=== PATIENT | female | born 1940 | race Caucasian/White ===

== ENCOUNTER → 2017-02-03 | Outpatient (CLI) | payer MEDICARE, MEDICAID ==
[~2017-02-03] MED LIST: BACL10TA PO; CYMB60CA PO; DOCU100C PO; DULC5TAB PO; FAMO20TA2 PO; HYDR-3583 PO; LEVO150T7 PO; LISI2.5T3 PO; LYRI150C PO; POLY17S PO; PRAV40TA2 PO; SENN8.8L PO; SIME180C2 PO; TOPA25TA8 PO; TYLE325T PO; VITA1000 PO; ZOLP10TA3 PO; [UNRECOGNIZED DRUG - CODE] PO
--- NOTE | 2017-02-03 13:46 | RADRPT ---
EXAM DATE/TIME: 02/03/2017 13:00 [facility] COMPARISON: CT ABDOMEN & PELVIS W/O CONTRAST, April 14, 2016, 22:29. INDICATIONS : Left flank pain with history of kidney stones. ORAL CONTRAST: No oral contrast ingested. RADIATION DOSE: 13.88 CTDIvol (mGy) MEDICAL HISTORY : Renal calculi. SURGICAL HISTORY : Hysterectomy. ENCOUNTER: Initial ACUITY: 2 months PAIN SCALE: 4/10 LOCATION: Left flank TECHNIQUE: Volumetric scanning of the abdomen and pelvis was performed. Using automated exposure control and ad justment of the mA and/or kV according to patient size, radiation dose was kept as low as reasonably achievable to obtain optimal diagnostic quality images. FINDINGS: LOWER LUNGS: Minimal right basal atelectasis versus scarring. LIVER: Homogeneous density without lesion. There is no dilation of the biliary tree. Gallbladder is surgica lly absent. SPLEEN: Normal size without lesion. PANCREAS: Within normal limits. KIDNEYS: Staghorn type calcified calculi in the left kidney extending to the renal pelvis similar to previous examination. Overall appearance of the left kidney is unchanged without evidence for interval hydrone phrosis or perinephric inflammatory change Nearly Staghorn type calcified calculi in the inferior to mid right renal poles and extending to the renal pelvis. The right kidney is otherwise unremarkable without significant perinephric strandi ng or hydronephrosis. Evaluation of the distal ureters and UV junction is very limited due to significant streak artif act from patient's bilateral hip arthroplasties. There is a 5 mm calcified density seen in the association executive ior left pelvis which was not demonstrated on the prior CT exam. This is potentially in the course of the left ureter although exact location is difficult to ascertain. The mid to proximal ureters are n ormal in caliber without evidence for radiopaque renal calculi. ADRENAL GLANDS: Within normal limits. VASCULAR: There is no aortic aneurysm. BOWEL/MESENTERY: The stomach, small bowel, and colon demonstrate no acute abnormality. Moderate amount of stool is not ed throughout the colon. There is no free intraperitoneal air or fluid. ABDOMINAL WALL: Within normal limits. RETROPERITONEUM: There is no lymphadenopathy. BLADDER: The bladder is decompressed and not visualized due to 2 significant beam hardening artifact from bila teral hip arthroplasties. REPRODUCTIVE: Calcified mass in the right pelvis is likely associated with the uterus and reflects uterine leiomyom a. INGUINAL: Cannot be evaluated. 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 Pronounced degenerative changes of the lumbar spine. CONCLUSION: 1. Staghorn type left renal calculi without evidence for left-sided hydronephrosis. The distal ureter s and UVJ are not evaluated due to significant beam artifact from bilateral hip arthroplasties. There is a new 5 mm calcified density seen in the region of the left distal ureter but exact location is d ifficult to ascertain. Although this may reflect a distal ureteral calculus, there is no evidence for significant obstructive uropathy at this time. 2. Nearly Staghorn type calcified calculi in the inferior to mid right renal poles without evidence f or significant hydronephrosis. 3. Remainder of the exam is unchanged with stable ancillary findings, as above. Apollo Montague MD on February 03, 2017 at 13:17 Board Certified Radiologist. This report was verified electronically.
== END ==
LOC: HRAD 12:17
PROVIDERS: ATTEND Urology
DX: R20.0 Anesthesia of skin (principal)
CPT/HCPCS: 74176

== ENCOUNTER 2017-07-20 12:51 | Inpatient (IN) | payer MEDICARE, MEDICAID ==
[~2017-07-20] VITALS: Ht 170.2 cm; Wt 124.0 kg
[2017-07-20] VITALS (7 sets, daily range): BP systolic 114–144; BP diastolic 57–68; PULSE 64–86; RESP 15–20; TEMP 97.5–99; O2SAT 94–97
[~2017-07-20 12:51] MED LIST changes: +ALEV220T14 PO; -DOCU100C PO; +DOCU100C15 PO; +MACR100C2 PO; +SENN8.6T36 PO; -SENN8.8L PO; -TOPA25TA8 PO; +TOPI1CAP18 PO; +[UNRECOGNIZED DRUG - CODE] PO; -[UNRECOGNIZED DRUG - CODE] PO
[2017-07-20 14:01] LABS: HEMATOCRIT 40.6 % (35.0-46.0); MEAN CELL VOLUME 93.9 FL (80.0-100.0); MEAN CORPUSCULAR HEMOGLOBIN 30.6 PG (27.0-34.0); MEAN CORPUSCULAR HGB CONC 32.6 % (32.0-36.0); PLATELET COUNT 146 TH/MM3 (150-450); RED BLOOD COUNT 4.32 MIL/MM3 (4.00-5.30); RED CELL DISTRIBUTION WIDTH 15.7 % (11.6-17.2); WHITE BLOOD COUNT 22.9 TH/MM3 (4.0-11.0)
[2017-07-20 14:03] LABS: HEMO FLAGS AUTO DIFF
[2017-07-20 14:09] LABS: APTT (PATIENT) 27.5 SEC (24.3-30.1); INTERNATIONAL NORMALIZED RATIO 1.1 RATIO; PROTHROMBIN TIME - PATIENT 10.8 SEC (9.8-11.6)
[2017-07-20 14:21] LABS: ANION GAP 6 MEQ/L (5-15); AST (GOT) 21 U/L (15-37); BICARBONATE 25.6 MEQ/L (21.0-32.0); CHLORIDE 110 MEQ/L (98-107); GLOMERULAR FILTRATION RATE 26 ML/MIN (>89); POTASSIUM 4.6 MEQ/L (3.5-5.1); SODIUM (NA) 142 MEQ/L (136-145)
[2017-07-20 14:22] LABS: ALKALINE PHOSPHATASE 81 U/L (45-117); ALT (GPT) 15 U/L (10-53); TOTAL BILIRUBIN ADULT 0.8 MG/DL (0.2-1.0)
[2017-07-20 14:28] LABS: BANDS 15 % (0-6); NEUTROPHIL # MANUAL DIFF 18.3 TH/MM3 (1.8-7.7); POLYS (SEG NEUTROPHILS) 65 % (16-70); WBC DIFF SAMPLE 100
[2017-07-20 14:29] LABS: PLATELET ESTIMATE SMEAR NORMAL (NORMAL); PLATELET MORPHOLOGY NORMAL (NORMAL); SCAN/DIFF FINAL DIFF MANUAL
[2017-07-20 14:31] LABS: BLOOD UREA NITROGEN 29 MG/DL (7-18)
[2017-07-20] MEDS ORDERED: SODIUM CHLORIDE 0.9% FLUSH 10 ML FLUSH IV FLUSH PRN ×2 (14:45→20:00)
[2017-07-20] MEDS ORDERED: NALOXONE HCL 2 MG/2 ML VIAL IV PUSH ONE (14:45)
[2017-07-20 15:03] LABS: BLOOD GAS BASE EXCESS 1.1 mmol/L (-2-2); BLOOD GAS CARBOXYHEMOGLOBIN 1.8 % (0-4); BLOOD GAS HCO3 26 mmol/L (22-26); BLOOD GAS METHEMOGLOBIN 0.7 % (0-2); BLOOD GAS O2 HGB SATURATION 92 % (90-100); BLOOD GAS OXYGEN CONTENT 16.7 Vol % (12.0-20.0); BLOOD GAS PCO2 44 mmHg (38-42); BLOOD GAS PO2 71 mmHG (61-120); BLOOD GAS TOTAL HGB 12.9 G/DL (12.0-16.0)
[2017-07-20 15:04] LABS: CRITICAL VALUE NO; DRAW SITE RT RADIAL; FIO2 21 %; NUMBER OF ARTERIAL PUNCTURES 1; OXYGEN DEVICE ROOM AIR; STAT YES; ULNAR PULSE PRESENT
--- NOTE | 2017-07-20 15:22 | PD ---
HPI Chief Complaint: General Weakness Time Seen by Provider: 14:23 Travel History International Travel<30 days: No Contact w/Intl Traveler<30days: No Traveled to known affect area: No History of Present Illness HPI This 77-year-old woman who presents to the emergency department complaining of altered mental status. I spoke with the nurse at [facility] gives majority of the history. She reports that patient is normally a and O 3 but does have episodes of confusion. She states today patient was overtly confused, decreased responsiveness, slurred speech, with a low BP. She is a history of tubal episodes of sepsis. She was started on Macrobid prophylactic antibiotics several days ago because she has kidney stones. She also apparently has a brain tumor. She is on Ambien which she takes nightly, Lescol at 9 PM last night, as well as Norcal which she takes regularly, last got 5 AM. No recent change in her medications otherwise. History Past Medical History Narrative Medical "Brain tumor" Hypertension CHF Polyneuropathy CAD Chronic kidney disease GERD Osteoporosis Chronic pain Tetanus Vaccination: Unknown Influenza Vaccination: Yes Social History Alcohol Use: No Tobacco Use: No Allergies-Medications (Allergen,Severity, Reaction): Coded Allergies: Sulfa (Sulfonamide Antibiotics) (Unverified Allergy, Severe, 07/15/17) codeine (Unverified Allergy, Severe, 07/15/17) morphine (Unverified Allergy, Severe, 07/15/17) amoxicillin (Unverified Allergy, Unknown, UNKNOWN, 07/15/17) *MDRO Multi-Drug Resistant Organism (Verified Adverse Reaction, Unknown, 07/15/17) MRSA 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 (nares) POSITIVE - 04/13/16 ESBL+E.Coli-(urine & blood-04/13/16) & (urine-06/16/16);MDR-Pseudomonas (urine-06/16/16) Reported Meds & Prescriptions Reported Meds & Active Scripts Active Macrobid (Nitrofurantoin Monoh/Nitrofur Macro) 100 Mg Cap 100 Mg PO HS Reported Bisacodyl Supp (Bisacodyl) 10 Mg Supp 10 Mg RECTAL EVERY [address] (Bisacodyl) 5 Mg Tabdr 10 Mg PO DAILY PRN Florastor (Saccharomyces Boulardii) 250 Mg Cap 250 Mg PO BID Lyrica (Pregabalin) 150 Mg Cap 300 Mg PO DAILY@1400 Trimethoprim 100 Mg Tab 100 Mg PO DAILY Aleve Arthritis (Naproxen Sodium) 220 Mg Tab 220 Mg PO BID PRN Senna-Tabs (Sennosides) 8.6 Mg Tab 17.2 Mg PO BID Topiramate ER (Topiramate) 50 Mg Cap 50 Mg PO BID Famotidine 20 Mg Tab 20 Mg PO BID Tylenol (Acetaminophen) 325 Mg Tab 325 Mg PO Q4H PRN Pravastatin 40 Mg Tab 40 Mg PO HS Hydrocodone-Acetaminophen 10-325 mg Tab 1 Tab PO Q8HR PRN Lyrica (Pregabalin) 150 Mg Cap 150 Mg PO BID Vitamin D-1000 (Cholecalciferol) 1,000 Unit Tab 1,000 Units PO DAILY Cymbalta DR (Duloxetine HCl) 60 Mg Capdr 60 Mg PO DAILY Docusate Sodium 100 Mg Cap 100 Mg PO BID Polyethylene Glycol 3350 Powder (Polyethylene Glycol) 17 Gm Pow 17 Gm PO DAILY Levothyroxine (Levothyroxine Sodium) 150 Mcg Tab 150 Mcg PO DAILY Baclofen 10 Mg Tab 10 Mg PO BID Zolpidem (Zolpidem Tartrate) 10 Mg Tab 10 Mg PO HS PRN Review of Systems Except as stated in HPI: all other systems reviewed are Neg Physical Exam Narrative GENERAL: 77 year-old woman, sluggishly responsive, responds only minimally to stimuli, SKIN: Focused skin assessment warm/dry. HEAD: Atraumatic. Normocephalic. EYES: Pupils equal and round. No scleral icterus. No injection or drainage. ENT: No nasal bleeding or discharge. Mucous membranes pink and moist. NECK: Trachea midline. No JVD. CARDIOVASCULAR: Regular rate and rhythm. No murmur appreciated. RESPIRATORY: No accessory muscle use. Clear to auscultation. Breath sounds equal bilaterally. GASTROINTESTINAL: Obese and soft. No tenderness or grimace with deep palpation. MUSCULOSKELETAL: No obvious deformities. Obese legs no obvious edema. No grimace with range of motion of all 4 extremities. NEUROLOGICAL: Decreased alertness. We'll wake up at times it was speaking with the nurse apparently prior to my arrival. Only moans and answer short questions , falls asleep easily, or cars a lot of stimulus to rouse. PSYCHIATRIC: Appropriate mood and affect; insight and judgment normal. Data Data Last Documented VS Vital Signs Date Time Temp Pulse Resp B/P (MAP) Pulse Ox O2 Delivery O2 Flow Rate FiO2 07/20/17 19:05 70 15 97 Room Air 07/20/17 19:05 125/57 (79) 07/20/17 13:11 97.5 Orders Orders Electrocardiogram (07/20/17 13:17) Complete Blood Count With Diff (07/20/17 13:17) Comprehensive Metabolic Panel (07/20/17 13:17) Prothrombin Time / Inr (Pt) (07/20/17 13:17) Act Partial Throm Time (Ptt) (07/20/17 13:17) Blood Glucose (07/20/17 13:17) Ecg Monitoring (07/20/17 13:17) Iv Access Insert/Monitor (07/20/17 13:17) Oximetry (07/20/17 13:17) Troponin I (07/20/17 14:43) Thyroid Stimulating Hormone (07/20/17 14:43) Urinalysis - C+S If Indicated (07/20/17 14:43) Cath For Specimen (07/20/17 14:43) Naloxone Inj (Narcan Inj) (07/20/17 14:45) Sodium Chloride 0.9% Flush (Ns Flush) (07/20/17 14:45) Electrocardiogram (07/20/17 ) Chest, Single Ap (07/20/17 ) Arterial Blood Gas (Abg) (07/20/17 ) Ct Brain W/O Iv Contrast(Rout) (07/20/17 ) Blood Culture (07/20/17 15:22) Lactic Acid (07/20/17 15:22) Urine Culture (07/20/17 14:55) Gentamicin Inj (Gentamicin Inj) (07/20/17 19:28) [facility] [facility] [place] (07/20/17 19:30) Ertapenem Inj (Invanz Inj) (07/20/17 19:30) Consult Infectious Disease (07/20/17 ) Sodium Chlor 0.9% 1000 Ml Inj (Ns 1000 M (07/20/17 19:45) Sodium Chlor 0.9% 1000 Ml Inj (Ns 1000 M (07/20/17 19:45) Admit Order (Ed Use Only) (07/20/17 ) Labs Laboratory Tests Test 07/20/17 13:40 07/20/17 14:55 07/20/17 14:56 07/20/17 16:20 White Blood Count 22.9 TH/MM3 Red Blood Count 4.32 MIL/MM3 Hemoglobin 13.2 GM/DL Hematocrit 40.6 % Mean Corpuscular Volume 93.9 FL Mean Corpuscular Hemoglobin 30.6 PG Mean Corpuscular Hemoglobin Concent 32.6 % Red Cell Distribution Width 15.7 % Platelet Count 146 TH/MM3 Mean Platelet Volume 10.8 FL CBC Comment AUTO DIFF Differential Total Cells Counted 100 Neutrophils % (Manual) 65 % Band Neutrophils % 15 % Lymphocytes % 11 % Monocytes % 9 % Neutrophils # (Manual) 18.3 TH/MM3 Differential Comment FINAL DIFF MANUAL Platelet Estimate NORMAL Platelet Morphology Comment NORMAL Prothrombin Time 10.8 SEC Prothromb Time International Ratio 1.1 RATIO Activated Partial Thromboplast Time 27.5 SEC Blood Urea Nitrogen 29 MG/DL Creatinine 1.89 MG/DL Random Glucose 118 MG/DL Total Protein 6.7 GM/DL Albumin 2.7 GM/DL Calcium Level 8.9 MG/DL Alkaline Phosphatase 81 U/L Aspartate Amino Transf (AST/SGOT) 21 U/L Alanine Aminotransferase (ALT/SGPT) 15 U/L Total Bilirubin 0.8 MG/DL Sodium Level 142 MEQ/L Potassium Level 4.6 MEQ/L Chloride Level 110 MEQ/L Carbon Dioxide Level 25.6 MEQ/L Anion Gap 6 MEQ/L Estimat Glomerular Filtration Rate 26 ML/MIN Urine Color YELLOW Urine Turbidity CLOUDY Urine pH 7.0 Urine Specific [place] 1.017 Urine Protein 100 mg/dL Urine Glucose (UA) NEG mg/dL Urine Ketones NEG mg/dL Urine Occult Blood MOD Urine Nitrite NEG Urine Bilirubin NEG Urine Urobilinogen LESS THAN 2.0 MG/DL Urine Leukocyte Esterase LARGE Urine RBC 82 /hpf Urine WBC /hpf Urine WBC Clumps MANY Urine Squamous Epithelial Cells 8 /hpf Urine Bacteria OCC /hpf Microscopic Urinalysis Comment CATH-CULTURE IND Blood Gas Puncture Site RT RADIAL Blood Gas Patient Temperature 37.0 Blood Gas HCO3 26 mmol/L Blood Gas Base Excess 1.1 mmol/L Blood Gas Oxygen Saturation 92 % Arterial Blood pH 7.39 Arterial Blood Partial Pressure CO2 44 mmHg Arterial Blood Partial Pressure O2 71 mmHG Arterial Blood Oxygen Content 16.7 Vol % Arterial Blood Carboxyhemoglobin 1.8 % Arterial Blood Methemoglobin 0.7 % Blood Gas Hemoglobin 12.9 G/DL Oxygen Delivery Device ROOM AIR Blood Gas Inspired Oxygen 21 % Lactic Acid Level 2.1 mmol/L [facility] Medical Decision Making Medical Screen Exam Complete: Yes Emergency Medical Condition: Yes Interpretation(s) LABS: CBC remarkable for leukocytosis, bandemia. CMP remarkable for mildly elevated BUN/creatinine Lactate 2.1 Coags unremarkable UA with pyuria Blood gas unremarkable. CT head negative Chest x-ray: Patchy air space disease in the bases likely atelectasis, mild fluid balance positive. Differential Diagnosis Infection, sepsis, head bleed, seizure, overdose or opiate poisoning, other Narrative Course Medical decision making INITIAL: 77 year-old woman for medical manner, altered mental status, high risk for sepsis, confusion weakness. Trial of Narcan with minimal effect in the ED. No recent change in her medications. White count coming back significantly elevated. Suspect urosepsis. We'll check labs, cultures, x-ray, reassess. FINAL: Patient with sepsis and UTI, given IV antibiotics. Recent history of ESBL, given ertapenem and gentamicin. Will be given IV fluids. Chest x-ray with a little bit a positive fluid balance. Continue to monitor. Physician Communication Physician Communication Discussed with hospitalist, doctor Lucero. Will admit. Diagnosis Primary Impression: Sepsis Additional Impression: UTI (urinary tract infection) Admitting Information Admitting Physician Requests: Admit Reji Adame MD Jul 20, 2017 15:22
[2017-07-20 15:32] LABS: BACTERIA, URINE OCC /hpf; BLOOD, URINE MOD (NEG); COMMENT (UR) CATH-CULTURE IND; CULTURE IF INDICATED CATH CULTURE IND; GLUCOSE,URINE NEG (NEG); KETONE, URINE NEG (NEG); NITRITE,URINE NEG (NEG); SQUAMOUS EPITHELIAL CELL URINE 8 /hpf (0-5); URINE COLOR YELLOW (YELLW/STRAW)
--- NOTE | 2017-07-20 16:03 | RADRPT ---
EXAM DATE/TIME: 07/20/2017 15:07 [facility] COMPARISON: CHEST PA & LAT, June 16, 2016, 15:40. CHEST SINGLE AP, April 13, 2016, 11:04. INDICATIONS : Short of breath. MEDICAL HISTORY : altered mental status SURGICAL HISTORY : unknown ENCOUNTER: Initial ACUITY: 1 day PAIN SCORE: Non-responsive. LOCATION: Bilateral chest FINDINGS: Diffuse interstitial prominence with indistinct central pulmonary vascularity. Mild bibasilar, left g reater than right, airspace disease. Cardiomediastinal contours are stable. Tortuous thoracic aorta. Remainder of the exam is unchanged. CONCLUSION: 1. Cardiomegaly with mild positive fluid balance. 2. Bibasilar patchy airspace disease, likely atelectasis. Apollo Montague MD on July 20, 2017 at 16:00 Board Certified Radiologist. This report was verified electronically.
--- NOTE | 2017-07-20 16:10 | RADRPT ---
EXAM DATE/TIME: 07/20/2017 15:26 [facility] COMPARISON: CT BRAIN W/O CONTRAST, December 04, 2015, 16:35. INDICATIONS : Altered mental status RADIATION DOSE: 36.64 CTDIvol (mGy) ; Patient motion MEDICAL HISTORY : Hypertension. Cardiovascular disease Renal failure, chronic. SURGICAL HISTORY : None. ENCOUNTER: Initial ACUITY: 1 day PAIN SCALE: Non-responsive LOCATION: cranial TECHNIQUE: Multiple contiguous axial images were obtained of the head. Using automated exposure control and adj ustment of the mA and/or kV according to patient size, radiation dose was kept as low as reasonably a chievable to obtain optimal diagnostic quality images. DICOM format image data is available electro nically for review and comparison. FINDINGS: CEREBRUM: The ventricles are normal for age. No evidence of midline shift, mass lesion, hemorrhage or acute in farction. No extra-axial fluid collections are seen. POSTERIOR FOSSA: The cerebellum and brainstem are intact. The 4th ventricle is midline. The cerebellopontine angle i s unremarkable. EXTRACRANIAL: The visualized portion of the orbits is intact. SKULL: The calvaria is intact. No evidence of skull fracture. CONCLUSION: 1. Stable evaluation of the brain. 2. No evidence of acute infarct, hemorrhage, mass or edema. Bear Middleton MD on July 20, 2017 at 16:08 Board Certified Radiologist. This report was verified electronically.
[2017-07-20] MEDS ORDERED: DULC5TAB PO (17:41)
[2017-07-20] MEDS ORDERED: FLOR250C PO (17:41)
[2017-07-20] MEDS ORDERED: TRIME100 PO (17:41)
[2017-07-20] MEDS ORDERED: LYRI150C PO (17:41)
[2017-07-20] MEDS ORDERED: BISA10SU3 RECTAL (17:43)
[2017-07-20] MEDS ORDERED: GENTAMICIN IV STA (19:28)
[2017-07-20] MEDS ORDERED: SODIUM CHLORIDE 0.9% IV STA (19:28)
[2017-07-20] MEDS ORDERED: MISCELLANEOUS PHARMACY INFORMATION XX PRN (19:30)
[2017-07-20] MEDS: ERTAPENEM INJ 1,000 MG in SODIUM CHLORIDE 0.9% INJ 100 ML IV SCH (19:30)
[2017-07-20] MEDS ORDERED: SODIUM CHLOR 0.9% 1000 ML INJ 1,000 ML IV ONE ×2 (19:45)
[2017-07-20] MEDS ORDERED: NALOXONE HCL 0.4 MG/ML AMP IV PUSH PRN (20:00)
[2017-07-20] MEDS: SODIUM CHLORIDE 0.9% FLUSH 10 ML FLUSH IV FLUSH SCH (21:00)
--- NOTE | 2017-07-20 21:54 | EKG ---
Date Performed: 07/20/2017 Time Performed: 14:05:36 PTAGE: 77 years EKG: Sinus rhythm LOW QRS VOLTAGE IN PRECORDIAL LEADS POSSIBLE INFERIOR MYOCARDIAL INFARCTION BORDERLINE ECG Compared to prior tracing no significant change DOCTOR: Trent Villanueva Interpretating Date/Time 07/20/2017 21:53:35
--- NOTE | 2017-07-20 23:02 | HHI.HP ---
HPI Service [facility] Primary Care Physician Unknown Admission Diagnosis Sepsis, UTI, AMS Diagnoses: Travel History International Travel<30 Days: No Contact w/Intl Traveler <30 Da: No Traveled to Known Affected Are: No History of Present Illness History from patient, ER physician communication, and review of medical records. "[facility] staff said i was unresponsive, sleeping more than usual " but reports urine has been dark smelled bad had sx for kidney stones and was on antibiotics couldnt get anyone to listen to me, finally, they spoke to doctor a week ago and antibiotics was started dont think antibiotics helped- it still smelled no known fever bp was 90/ systolic today at [facility]- that was the reason why they sent passed 2 stones about a week ago and this weekend urology Dr Carter saw her- but did not do procedure yet, follow up apt in 6 months no nasuea/ no vomting/ no diarrhea was hard to breath while lying flat no back or red stool or blood in urine cough very deep when i lay flat used to use cpap, but company went out of business and they could not get her to get another one Past Family Social History Past Medical History neuropathy chronic pain cad s/p stents sleep apnea- was on cpap at home previously, but now not on it because machine is not working and [facility] did not arrange for new doc or equipment yet kidney stones hypothyroidism Reported Medications coronary angiogram and stenting catarct kdiney stone sx 4 hip sx 4 back sx knee sx 2 bladder sx Allergies: Coded Allergies: Sulfa (Sulfonamide Antibiotics) (Unverified Allergy, Severe, 07/15/17) codeine (Unverified Allergy, Severe, 07/15/17) morphine (Unverified Allergy, Severe, 07/15/17) amoxicillin (Unverified Allergy, Unknown, UNKNOWN, 07/15/17) *MDRO Multi-Drug Resistant Organism (Verified Adverse Reaction, Unknown, 07/15/17) MRSA PCR screen (nares) POSITIVE - 04/13/16 ESBL+E.Coli-(urine & blood-04/13/16) & (urine-06/16/16);MDR-Pseudomonas (urine-06/16/16) Family History father- cancer lung , smoker mother- cad of heart attack oldest brother- infection from [place] in [place] Social History used to smoke, quit 1989 used to drink etoh , thinks somewhat heavy for pain lives at [facility] for past 2 yrs Physical Exam Vital Signs Vital Signs Date Time Temp Pulse Resp B/P (MAP) Pulse Ox O2 Delivery O2 Flow Rate FiO2 07/20/17 22:35 99.0 86 18 144/68 (93) 96 07/20/17 22:17 07/20/17 22:15 99.0 86 18 144/68 (93) 96 07/20/17 19:05 70 15 97 Room Air 07/20/17 19:05 70 15 125/57 (79) 97 Room Air 07/20/17 16:26 73 20 118/67 (84) 94 Room Air 07/20/17 14:00 64 20 114/57 (76) 96 Room Air 07/20/17 13:11 97.5 82 18 117/59 (78) 94 Room Air 07/20/17 13:11 84 18 94 Room Air 07/20/17 13:06 97.5 82 18 117/59 (78) 94 Physical Exam GENERAL: This is a well-nourished, well-developed patient, in moderate distress from pain. Obese. SKIN: No rashes, ecchymoses or lesions. Cool and dry. HEAD: Atraumatic. Normocephalic. No temporal or scalp tenderness. EYES:No scleral icterus. No injection or drainage. ENT: Nose without bleeding, purulent drainage or septal hematoma. Airway patent. NECK: Trachea midline. No JVD . No neck rigidity. CARDIOVASCULAR: Regular rate and rhythm without murmurs, gallops, or rubs. RESPIRATORY: Clear to auscultation. Breath sounds equal bilaterally. No wheezes , rales, or rhonchi. GASTROINTESTINAL: Abdomen soft, non-tender, nondistended. No guarding. MUSCULOSKELETAL: Extremities without clubbing, cyanosis No calf tenderness. Bilateral lower extremity 3+ pitting edema all up to her thighs. Poor peripheral pulses. Severe neuropathy even on light touch. NEUROLOGICAL: Awake and alert. Normal speech. Limited range of motion of bilateral lower extremities due to peripheral edema/obesity/chronic pain Laboratory Laboratory Tests Test 07/20/17 13:40 07/20/17 14:55 07/20/17 14:56 07/20/17 16:20 White Blood Count 22.9 Red Blood Count 4.32 Hemoglobin 13.2 Hematocrit 40.6 Mean Corpuscular Volume 93.9 Mean Corpuscular Hemoglobin 30.6 Mean Corpuscular Hemoglobin Concent 32.6 Red Cell Distribution Width 15.7 Platelet Count 146 Mean Platelet Volume 10.8 CBC Comment AUTO DIFF Differential Total Cells Counted 100 Neutrophils % (Manual) 65 Band Neutrophils % 15 Lymphocytes % 11 Monocytes % 9 Neutrophils # (Manual) 18.3 Differential Comment FINAL DIFF MANUAL Platelet Estimate NORMAL Platelet Morphology Comment NORMAL Prothrombin Time 10.8 Prothromb Time International Ratio 1.1 Activated Partial Thromboplast Time 27.5 Blood Urea Nitrogen 29 Creatinine 1.89 Random Glucose 118 Total Protein 6.7 Albumin 2.7 Calcium Level 8.9 Alkaline Phosphatase 81 Aspartate Amino Transf (AST/SGOT) 21 Alanine Aminotransferase (ALT/SGPT) 15 Total Bilirubin 0.8 Sodium Level 142 Potassium Level 4.6 Chloride Level 110 Carbon Dioxide Level 25.6 Anion Gap 6 Estimat Glomerular Filtration Rate 26 Urine Color YELLOW Urine Turbidity CLOUDY Urine pH 7.0 Urine Specific [place] 1.017 Urine Protein 100 Urine Glucose (UA) NEG Urine Ketones NEG Urine Occult Blood MOD Urine Nitrite NEG Urine Bilirubin NEG Urine Urobilinogen LESS THAN 2.0 Urine Leukocyte Esterase LARGE Urine RBC 82 Urine WBC Urine WBC Clumps MANY Urine Squamous Epithelial Cells 8 Urine Bacteria OCC Microscopic Urinalysis Comment CATH-CULTURE IND Blood Gas Puncture Site RT RADIAL Blood Gas Patient Temperature 37.0 Blood Gas HCO3 26 Blood Gas Base Excess 1.1 Blood Gas Oxygen Saturation 92 Arterial Blood pH 7.39 Arterial Blood Partial Pressure CO2 44 Arterial Blood Partial Pressure O2 71 Arterial Blood Oxygen Content 16.7 Arterial Blood Carboxyhemoglobin 1.8 Arterial Blood Methemoglobin 0.7 Blood Gas Hemoglobin 12.9 Oxygen Delivery Device ROOM AIR Blood Gas Inspired Oxygen 21 Lactic Acid Level 2.1 Date/Time Source Procedure Growth Status 07/20/17 16:20 Blood Peripheral Aerobic Blood Culture Pending Received 07/20/17 16:20 Blood Peripheral Anaerobic Blood Culture Pending Received 07/20/17 14:55 Urine Catheterized Urine Urine Culture Pending Received Result Diagram: 07/20/17 1340 07/20/17 1340 Imaging Last [address] 07/20/17 0000 Signed Impressions: Service Date/Time: Thursday, July 20, 2017 15:26 - CONCLUSION: 1. Stable evaluation of the brain. 2. No evidence of acute infarct, hemorrhage, mass or edema. Bear Middleton MD Chest X-Ray 07/20/17 0000 Signed Impressions: Service Date/Time: Thursday, July 20, 2017 15:07 - CONCLUSION: 1. Cardiomegaly with mild positive fluid balance. 2. Bibasilar patchy airspace disease, likely atelectasis. Apollo Montague MD Capmakayla VTE Risk Assessment Caprini VTE Risk Assessment: Mod/High Risk (score >= 2) Caprini Risk Assessment Model Point Value = 1 Point Value = 2 Point Value = 3 Point Value = 5 Age 41-60 Minor surgery BMI > 25 kg/m2 Swollen legs Varicose veins or History of unexplained or recurrent spontaneous Oral contraceptives or hormone replacement Sepsis (< 1 month) Serious lung disease, including pneumonia (< 1 month) Abnormal pulmonary function Acute myocardial infarction Congestive heart failure (< 1 month) History of inflammatory bowel disease Medical patient at bed rest Age 61-74 Arthroscopic surgery Major open surgery (> 45 min) Laparoscopic surgery (> 45 min) Malignancy Confined to bed (> 72 hours) Immobilizing plaster cast Central venous access Age >= 75 History of VTE Family history of VTE Factor V Leiden Prothrombin [id number] Lupus anticoagulant Anticardiolipin antibodies Elevated serum homocysteine Heparin-induced thrombocytopenia Other congenital or acquired thrombophilia Stroke (< 1 month) Elective arthroplasty Hip, pelvis, or leg fracture Acute spinal cord injury (< 1 month) Prophylaxis Regimen Total Risk Factor Score Risk Level Prophylaxis Regimen 0-1 Low Early ambulation 2 Moderate Order ONE of the following: *Sequential Compression Device (SCD) *Heparin 5000 units SQ BID 3-4 Higher Order ONE of the following medications: *Heparin 5000 units SQ TID *Enoxaparin/Lovenox 40 mg SQ daily (WT < 150 kg, CrCl > 30 mL/min) *Enoxaparin/Lovenox 30 mg SQ daily (WT < 150 kg, CrCl > 10-29 mL/min) *Enoxaparin/Lovenox 30 mg SQ BID (WT < 150 kg, CrCl > 30 mL/min) AND/OR *Sequential Compression Device (SCD) 5 or more Highest Order ONE of the following medications: *Heparin 5000 units SQ TID (Preferred with Epidurals) *Enoxaparin/Lovenox 40 mg SQ daily (WT < 150 kg, CrCl > 30 mL/min) *Enoxaparin/Lovenox 30 mg SQ daily (WT < 150 kg, CrCl > 10-29 mL/min) *Enoxaparin/Lovenox 30 mg SQ BID (WT < 150 kg, CrCl > 30 mL/min) AND *Sequential Compression Device (SCD) Assessment and Plan Assessment and Plan Impression: Sepsis secondary to UTI History of ESBL infections Bilateral lower extremity peripheral edema Mostly bedbound status Dyspnea on minimal exertion and while lying flat. History of renal stones with recent findings. No procedures done. neuropathy chronic pain cad s/p stents sleep apnea- was on cpap at home previously, but now not on it because machine is not working and [facility] did not arrange for new doc or equipment yet kidney stones hypothyroidism Plan: Patient received gentamicin in ER. Ertapenem was ordered We'll continue for now. We'll follow culture results. Consider ID consult based on during culture and sensitivity results. Perform ultrasound of bilateral lower extremities to rule out DVT. For now, would cover with 1 times dose of therapeutic Lovenox while awaiting on ultrasound studies in the morning. Echocardiogram in a.m. However patient's description of her dyspnea and cough is much more consistent with her chronic bronchitis rather than CHF. She is maintaining O2 sats well on room air. Patient is explained to get pulmonary follow-up for sleep apnea so that she could have C Pap prescribed as an outpatient. Would need to sign this information out to the shelter staff as well upon discharge. Long- standing untreated sleep apnea would result in right heart failure in this patient. Resume her home meds regarding her neuropathy and chronic pains. Turn patient every 2 hours. Elevate legs. DVT prophylaxis on Lovenox for now. We'll need to switch to heparin therapeutic dose versus prophylactic dose based on ultrasound studies. Discussed Condition With Patient, ER physician, nursing staff Physician Certification 2 Midnight Certification Type: Admission for Inpatient Services Order for Inpatient Services The services are ordered in accordance with Medicare regulations or non- Medicare payer requirements, as applicable. In the case of services not specified as inpatient-only, they are appropriately provided as inpatient services in accordance with the 2-midnight benchmark. Estimated LOS (days): 3 days is the estimated time the patient will need to remain in the hospital, assuming treatment plan goals are met and no additional complications. Post-Hospital Plan: SNF Destinee Lucero MD Jul 20, 2017 23:02
[2017-07-20] MEDS ORDERED: PREGABALIN 100 MG CAP PO ONE (23:15)
[2017-07-20] MEDS ORDERED: ENOXAPARIN SODIUM 120 MG/0.8 ML SYRINGE SQ ONE (23:30)
[2017-07-20] MEDS: ACETAMINOPHEN/HYDROcodone 325 MG/10 MG TAB PO PRN (23:54)
[2017-07-21] MEDS: ERTAPENEM INJ 1,000 MG in SODIUM CHLORIDE 0.9% INJ 100 ML IV SCH (00:39)
[2017-07-21 04:00] VITALS: BP 98/56; PULSE 74; RESP 18; TEMP 97.6; O2SAT 91
[2017-07-21] MEDS: LEVOTHYROXINE SODIUM 150 MCG TAB PO SCH (06:09)
[2017-07-21 08:00] VITALS: BP 114/57; PULSE 76; RESP 16; TEMP 98.2; O2SAT 92
[2017-07-21 08:03] LABS: HEMATOCRIT 36.8 % (35.0-46.0); MEAN CELL VOLUME 93.7 FL (80.0-100.0); MEAN CORPUSCULAR HGB CONC 32.1 % (32.0-36.0); PLATELET COUNT 107 TH/MM3 (150-450); RED BLOOD COUNT 3.93 MIL/MM3 (4.00-5.30); RED CELL DISTRIBUTION WIDTH 15.5 % (11.6-17.2); WHITE BLOOD COUNT 12.4 TH/MM3 (4.0-11.0)
[2017-07-21 08:13] LABS: HEMO FLAGS AUTO DIFF
[2017-07-21 08:33] LABS: BICARBONATE 23.9 MEQ/L (21.0-32.0); POTASSIUM 3.6 MEQ/L (3.5-5.1)
[2017-07-21 08:47] LABS: BANDS 13 % (0-6); EOSINOPHILS 2 % (0-4); POLYS (SEG NEUTROPHILS) 68 % (16-70); WBC DIFF SAMPLE 100
[2017-07-21 08:48] LABS: PLATELET ESTIMATE SMEAR LOW (NORMAL); PLATELET MORPHOLOGY ENLARGED (NORMAL); SCAN/DIFF FINAL DIFF MANUAL
[2017-07-21] MEDS ORDERED: TOPIRAMATE 50 MG PO SCH (09:00)
[2017-07-21] MEDS: SODIUM CHLORIDE 0.9% FLUSH 10 ML FLUSH IV FLUSH SCH ×2 (09:00→22:02)
[2017-07-21] MEDS: DOCUSATE SODIUM 100 MG CAP PO SCH ×2 (09:00→21:38)
[2017-07-21] MEDS: PREGABALIN 75 MG CAP PO SCH ×3 (09:13→21:38)
[2017-07-21] MEDS: BACLOFEN 10 MG TAB PO SCH ×2 (09:13→21:38)
[2017-07-21] MEDS: DULoxetine HCl DR 60 MG CAP PO SCH (09:13)
[2017-07-21] MEDS: FAMOTIDINE 20 MG TAB PO SCH ×2 (09:13→21:38)
[2017-07-21] MEDS: ACETAMINOPHEN/HYDROcodone 325 MG/10 MG TAB PO PRN ×2 (09:15→17:40)
--- NOTE | 2017-07-21 11:04 | RADRPT ---
EXAM DATE/TIME: 07/21/2017 08:01 [facility] COMPARISON: No previous studies available for comparison. INDICATIONS : Bilateral leg swelling. MEDICAL HISTORY : Hypothyroidism. Congestive heart failure. Hypercholesterolemia. Dementia. Coronary artery disease. Hy perlipidemia. Chest pain. HTN. Dyspnea. GERD. Renal failure. Kidney stones. UTI. Arthritis. Osteoarth ritis. Hay fever. Insomnia. ESBL+E.Coli. MRSA. SURGICAL HISTORY : Coronary artery stent.Hysterectomy. Cataract extraction. Kidney stones surgery. Spinal surgery. Hip r eplacement. ENCOUNTER: Initial ACUITY: 1 day PAIN SCORE: 0/10 LOCATION: Bilateral leg. TECHNIQUE: Venous ultrasound of the left and right leg was performed from the inguinal ligament to the proximal calf. Real-time, color Doppler and spectral tracing, compression and augmentation techniques were us ed. FINDINGS: RIGHT LEG: There is normal compressibility of the deep venous system from the inguinal region to the proximal ca lf. No echogenic clot is seen in the lumen of the common femoral, femoral, popliteal, and posterior tibial veins. There is a normal response of the venous system to proximal and distal augmentation an d respiration. LEFT LEG: There is normal compressibility of the deep venous system from the inguinal region to the proximal ca lf. No echogenic clot is seen in the lumen of the common femoral, femoral, popliteal, and posterior tibial veins. There is a normal response of the venous system to proximal and distal augmentation an d respiration. CONCLUSION: Negative exam. No sonographic or Doppler findings of deep venous thrombosis. Lai Jones MD on July 21, 2017 at 11:02 Board Certified Radiologist. This report was verified electronically.
--- NOTE | 2017-07-21 11:37 | HHI.PR ---
Subjective Remarks Follow up for UTI. Patient is currently doing well. No fever, chills. Objective Vitals Vital Signs Date Time Temp Pulse Resp B/P (MAP) Pulse Ox O2 Delivery O2 Flow Rate FiO2 07/21/17 08:00 98.2 76 16 114/57 (76) 92 07/21/17 04:00 97.6 74 18 98/56 (70) 91 07/20/17 22:35 99.0 86 18 144/68 (93) 96 07/20/17 22:17 07/20/17 22:15 99.0 86 18 144/68 (93) 96 07/20/17 19:05 70 15 97 Room Air 07/20/17 19:05 70 15 125/57 (79) 97 Room Air 07/20/17 16:26 73 20 118/67 (84) 94 Room Air 07/20/17 14:00 64 20 114/57 (76) 96 Room Air 07/20/17 13:11 97.5 82 18 117/59 (78) 94 Room Air 07/20/17 13:11 84 18 94 Room Air 07/20/17 13:06 97.5 82 18 117/59 (78) 94 I/O 07/20/17 07/20/17 07/20/17 07/21/17 07/21/17 07/21/17 07:00 15:00 23:00 07:00 15:00 23:00 Intake Total 100 ml Balance 100 ml Intake IV Total 100 ml # Voids 1 3 # Bowel Movements 1 Result Diagram: 07/21/17 0648 07/21/17 0648 Imaging Last Impressions Lower Extremity Ultrasound 07/21/17 0000 Signed Impressions: Service Date/Time: Friday, July 21, 2017 08:01 - CONCLUSION: Negative exam. No sonographic or Doppler findings of deep venous thrombosis. Lai Jones MD Head CT 07/20/17 0000 Signed Impressions: Service Date/Time: Thursday, July 20, 2017 15:26 - CONCLUSION: 1. Stable evaluation of the brain. 2. No evidence of acute infarct, hemorrhage, mass or edema. Bear Middleton MD Chest X-Ray 07/20/17 0000 Signed Impressions: Service Date/Time: Thursday, July 20, 2017 15:07 - CONCLUSION: 1. Cardiomegaly with mild positive fluid balance. 2. Bibasilar patchy airspace disease, likely atelectasis. Apollo Montague MD Objective Remarks GENERAL: Alert, NAD. SKIN: Warm and dry. HEAD: Normocephalic. EYES: No scleral icterus. No injection or drainage. NECK: Supple, trachea midline. No JVD or lymphadenopathy. CARDIOVASCULAR: Regular rate and rhythm without murmurs, gallops, or rubs. RESPIRATORY: Breath sounds equal bilaterally. No accessory muscle use. GASTROINTESTINAL: Abdomen soft, non-tender, nondistended. MUSCULOSKELETAL: No cyanosis, or edema. BACK: Nontender without obvious deformity. No CVA tenderness. Procedures None. A/P Problem List: (1) UTI (urinary tract infection) ICD Code: N39.0 - Urinary tract infection, site not specified Status: Acute (2) Hypothyroidism ICD Code: E03.9 - Hypothyroidism, unspecified Assessment and Plan Ms. Mcfarlane is a 77 year old female with a previous history of ESBL UTI who was admitted to the hospital from [facility] due to altered mental status. Patient overtly confused, decreased responsiveness, slurred speech, with a low BP. She has been on Macrobid recently. - Urinary tract infection - Currently on Ertapenem. WBC 22.9 --> 12.4. - ID following, changed Ertapenem to Meropenem. - Blood cx shows GPC - this could be a contaminant. - Urine cx showed immature growth. - Hypothyroidism - Continue Levothyroxine 150mcg Qday. - Hyperlipidemia - Continue Pravastatin 40mg QHS. - Insomnia - continue Ambien but reduced dose to 5mg QHS. DNR. Lovenox 30mg QHS. Edgardo Sands DO Jul 21, 2017 11:37
[2017-07-21 12:00] VITALS: BP 122/56; PULSE 77; RESP 16; TEMP 98.2; O2SAT 91
--- NOTE | 2017-07-21 13:03 | PD.CONS ---
History of Present Illness Service Infectious disease Consult Requested By Dr Adame Reason for Consult Evaluate patient with UTI Primary Care Physician Unknown Diagnoses: History of Present Illness Patient seen and examined. Records reviewed. Patient is a 77-year-old female, [facility], brought into the hospital for lethargy. She apparently has been sleeping more than her usual. Her urine was also noted to be dark with some odor. She has had problem with recurrent UTI, and has known bilateral kidney stones. She sees Dr. Munguia. The last note I saw in [facility] was from June of this year. She apparently has been passing small stones. The last CT scan in [facility] was from January and there was the presence of the bilateral kidney stones, but no hydronephrosis. Per urology note she is supposed to be on chronic antibiotic suppression with Macrobid. On presentation patient has been afebrile. Her WBC was initially elevated at 22,000, and that has improved. Her urinalysis did show evidence of pyuria. She denies any respiratory complaint. She has not had any nausea or vomiting or any abdominal pain. There was a prior urine culture from last year that had Pseudomonas and ESBL positive organism. Patient currently is awake and alert. As not look toxic appearing. Highest temperature has been 99. Infectious disease consultation has been requested to evaluate the patient. Review of Systems Constitutional: DENIES: Fever, Chills, Night Sweats Eyes: DENIES: Eye pain Ears, nose, mouth, throat: DENIES: Nasal discharge, Oral lesions, Throat pain, Ear Pain, Sinus Pain Respiratory: DENIES: Cough, Sputum production, Shortness of breath Cardiovascular: COMPLAINS OF: Lower Extremity Edema, DENIES: Chest pain, Palpitations, Syncope Gastrointestinal: DENIES: Abdominal pain, Diarrhea, Nausea, Vomiting, Difficulty Swallowing Musculoskeletal: DENIES: Joint Swelling, Back pain Integumentary: DENIES: Rash Hematologic/lymphatic: DENIES: Lymphadenopathy Immunologic/allergic: DENIES: Urticaria Psychiatric: DENIES: Hallucinations Past Family Social History Allergies: Coded Allergies: Sulfa (Sulfonamide Antibiotics) (Unverified Allergy, Severe, 07/15/17) codeine (Unverified Allergy, Severe, 07/15/17) morphine (Unverified Allergy, Severe, 07/15/17) amoxicillin (Unverified Allergy, Unknown, UNKNOWN, 07/15/17) *MDRO Multi-Drug Resistant Organism (Verified Adverse Reaction, Unknown, 07/15/17) MRSA PCR screen (nares) POSITIVE - 04/13/16 ESBL+E.Coli-(urine & blood-04/13/16) & (urine-06/16/16);MDR-Pseudomonas (urine-06/16/16) Past Medical History Neuropathy Chronic pain CAD s/p stents Sleep apnea- was on cpap at home previously, but now not on it because machine is not working and DC did not arrange for new doc or equipment yet Kidney stones Hypothyroidism Past Surgical History Cardiac catheter and Stenting Cataract Kidney stone sx Hip sx Back sx Knee sx 2 Bladder sx Reported Medications I attest that I obtained, updated or reviewed the home and current medications. Reported Meds & Active Scripts Active Macrobid (Nitrofurantoin Monoh/Nitrofur Macro) 100 Mg Cap 100 Mg PO HS Reported Bisacodyl Supp (Bisacodyl) 10 Mg Supp 10 Mg RECTAL EVERY [address] (Bisacodyl) 5 Mg Tabdr 10 Mg PO DAILY PRN Florastor (Saccharomyces Boulardii) 250 Mg Cap 250 Mg PO BID Lyrica (Pregabalin) 150 Mg Cap 300 Mg PO DAILY@1400 Trimethoprim 100 Mg Tab 100 Mg PO DAILY Aleve Arthritis (Naproxen Sodium) 220 Mg Tab 220 Mg PO BID PRN Senna-Tabs (Sennosides) 8.6 Mg Tab 17.2 Mg PO BID Topiramate ER (Topiramate) 50 Mg Cap 50 Mg PO BID Famotidine 20 Mg Tab 20 Mg PO BID Tylenol (Acetaminophen) 325 Mg Tab 325 Mg PO Q4H PRN Pravastatin 40 Mg Tab 40 Mg PO HS Hydrocodone-Acetaminophen 10-325 mg Tab 1 Tab PO Q8HR PRN Lyrica (Pregabalin) 150 Mg Cap 150 Mg PO BID Vitamin D-1000 (Cholecalciferol) 1,000 Unit Tab 1,000 Units PO DAILY Cymbalta DR (Duloxetine HCl) 60 Mg Capdr 60 Mg PO DAILY Docusate Sodium 100 Mg Cap 100 Mg PO BID Polyethylene Glycol 3350 Powder (Polyethylene Glycol) 17 Gm Pow 17 Gm PO DAILY Levothyroxine (Levothyroxine Sodium) 150 Mcg Tab 150 Mcg PO DAILY Baclofen 10 Mg Tab 10 Mg PO BID Zolpidem (Zolpidem Tartrate) 10 Mg Tab 10 Mg PO HS PRN Active Ordered Medications Current Medications Medications (Trade) Dose Ordered Sig/William Route Start Time Stop Time Status Last Admin (NS Flush) 2 ml UNSCH PRN IV FLUSH 07/20/17 14:45 07/20/17 15:02 [place] [place] [facility] [place] 1 UNSCH X1 PRN XX 07/20/17 19:30 07/21/17 19:29 Ertapenem 1000 mg/ Sodium Chloride 100 ml @ 200 mls/hr Q24H IV 07/20/17 19:30 07/21/17 00:39 (NS Flush) 2 ml UNSCH PRN IV FLUSH 07/20/17 20:00 (NS Flush) 2 ml BID IV FLUSH 07/20/17 21:00 07/21/17 09:00 (Narcan Inj) 0.4 mg UNSCH PRN IV PUSH 07/20/17 20:00 (Lioresal) 10 mg BID PO 07/21/17 09:00 07/21/17 09:13 (Colace) 100 mg BID PO 07/21/17 09:00 (Cymbalta Dr) 60 mg DAILY PO 07/21/17 09:00 07/21/17 09:13 (Pepcid) 10 mg BID PO 07/21/17 09:00 07/21/17 09:13 (Geronimo 10-325 Mg) 1 tab Q8H PRN PO 07/20/17 23:15 07/21/17 09:15 (Synthroid) 150 mcg DAILY@0600 PO 07/21/17 06:00 07/21/17 06:09 (Pravachol) 40 mg HS PO 07/21/17 21:00 (Lyrica) 150 mg BID PO 07/21/17 09:00 07/21/17 09:13 (Lyrica) 300 mg DAILY@1400 PO 07/21/17 14:00 Patient Own Medication PT OWN MED: (Topiram... BID PO 07/21/17 09:00 Future Hold (Ambien) 10 mg HS PRN PO 07/21/17 21:00 Family History father- cancer lung , smoker mother- cad of heart attack Social History Used to smoke, quit 1990 Used to drink etoh , thinks somewhat heavy for pain Lives at NH for past 2 yrs No illicit drugs Non ambulatory, could stand up Physical Exam Vital Signs Vital Signs Date Time Temp Pulse Resp B/P (MAP) Pulse Ox O2 Delivery O2 Flow Rate FiO2 07/21/17 08:00 98.2 76 16 114/57 (76) 92 07/21/17 04:00 97.6 74 18 98/56 (70) 91 07/20/17 22:35 99.0 86 18 144/68 (93) 96 07/20/17 22:17 07/20/17 22:15 99.0 86 18 144/68 (93) 96 07/20/17 19:05 70 15 97 Room Air 07/20/17 19:05 70 15 125/57 (79) 97 Room Air 07/20/17 16:26 73 20 118/67 (84) 94 Room Air 07/20/17 14:00 64 20 114/57 (76) 96 Room Air 07/20/17 13:11 97.5 82 18 117/59 (78) 94 Room Air 07/20/17 13:11 84 18 94 Room Air 07/20/17 13:06 97.5 82 18 117/59 (78) 94 Physical Exam GENERAL: Patient is an obese, well-developed patient, awake and alert, not in respiratory distress. SKIN: Warm and dry. No generalized rash, no ecchymoses and no evidence of embolic lesions. HEAD: Atraumatic. Normocephalic. No temporal wasting, or tenderness. EYES: [place] conjunctiva. No petechia or hemorrhage. Pupils equal, round and reactive to light. Extraocular movements full and intact. No scleral icterus. No injection or drainage. EARS, NOSE AND THROAT: Nose without bleeding or purulent nasal discharge. No sinus tenderness. Mucous membranes pink and moist. No oral lesions noted. No exudate. No oral thrush. NECK: Trachea midline. Supple and not tender, no meningeal signs CARDIOVASCULAR: Regular rate and rhythm. No murmurs, rubs or gallops heard RESPIRATORY: Clear to auscultation. Breath sounds equal bilaterally. No rales , wheezing or rhonchi. Decreased breath sounds at the bases ABDOMEN: Soft, obese, non-tender, nondistended. Bowel sounds present and normoactive. No guarding. No rebound. No organomegaly. EXTREMITIES: No clubbing, cyanosis. Has bilateral pedal edema. No calf tenderness. Well perfused and warm. NEUROLOGICAL: Awake and alert. Cranial nerves grossly intact. Motor grossly within normal limits. PSYCHIATRIC: Normal affect, calm and cooperative. LINE: No evidence of infection Laboratory Laboratory Tests Test 07/20/17 13:40 07/20/17 14:55 07/20/17 14:56 07/20/17 16:20 White Blood Count 22.9 Red Blood Count 4.32 Hemoglobin 13.2 Hematocrit 40.6 Mean Corpuscular Volume 93.9 Mean Corpuscular Hemoglobin 30.6 Mean Corpuscular Hemoglobin Concent 32.6 Red Cell Distribution Width 15.7 Platelet Count 146 Mean Platelet Volume 10.8 CBC Comment AUTO DIFF Differential Total Cells Counted 100 Neutrophils % (Manual) 65 Band Neutrophils % 15 Lymphocytes % 11 Monocytes % 9 Neutrophils # (Manual) 18.3 Differential Comment FINAL DIFF MANUAL Platelet Estimate NORMAL Platelet Morphology Comment NORMAL Prothrombin Time 10.8 Prothromb Time International Ratio 1.1 Activated Partial Thromboplast Time 27.5 Blood Urea Nitrogen 29 Creatinine 1.89 Random Glucose 118 Total Protein 6.7 Albumin 2.7 Calcium Level 8.9 Alkaline Phosphatase 81 Aspartate Amino Transf (AST/SGOT) 21 Alanine Aminotransferase (ALT/SGPT) 15 Total Bilirubin 0.8 Sodium Level 142 Potassium Level 4.6 Chloride Level 110 Carbon Dioxide Level 25.6 Anion Gap 6 Estimat Glomerular Filtration Rate 26 Troponin I LESS THAN 0.02 Thyroid Stimulating Hormone 3rd Gen 0.101 Urine Color YELLOW Urine Turbidity CLOUDY Urine pH 7.0 Urine Specific [place] 1.017 Urine Protein 100 Urine Glucose (UA) NEG Urine Ketones NEG Urine Occult Blood MOD Urine Nitrite NEG Urine Bilirubin NEG Urine Urobilinogen LESS THAN 2.0 Urine Leukocyte Esterase LARGE Urine RBC 82 Urine WBC Urine WBC Clumps MANY Urine Squamous Epithelial Cells 8 Urine Bacteria OCC Microscopic Urinalysis Comment CATH-CULTURE IND Blood Gas Puncture Site RT RADIAL Blood Gas Patient Temperature 37.0 Blood Gas HCO3 26 Blood Gas Base Excess 1.1 Blood Gas Oxygen Saturation 92 Arterial Blood pH 7.39 Arterial Blood Partial Pressure CO2 44 Arterial Blood Partial Pressure O2 71 Arterial Blood Oxygen Content 16.7 Arterial Blood Carboxyhemoglobin 1.8 Arterial Blood Methemoglobin 0.7 Blood Gas Hemoglobin 12.9 Oxygen Delivery Device ROOM AIR Blood Gas Inspired Oxygen 21 Lactic Acid Level 2.1 Test 07/21/17 06:48 White Blood Count 12.4 Red Blood Count 3.93 Hemoglobin 11.8 Hematocrit 36.8 Mean Corpuscular Volume 93.7 Mean Corpuscular Hemoglobin 30.0 Mean Corpuscular Hemoglobin Concent 32.1 Red Cell Distribution Width 15.5 Platelet Count 107 Mean Platelet Volume 11.3 CBC Comment AUTO DIFF Differential Total Cells Counted 100 Neutrophils % (Manual) 68 Band Neutrophils % 13 Lymphocytes % 9 Monocytes % 8 Eosinophils % 2 Neutrophils # (Manual) 10.0 Differential Comment FINAL DIFF MANUAL Platelet Estimate LOW Platelet Morphology Comment ENLARGED Blood Urea Nitrogen 30 Creatinine 1.27 Random Glucose 81 Calcium Level 8.2 Sodium Level 142 Potassium Level 3.6 Chloride Level 110 Carbon Dioxide Level 23.9 Anion Gap 8 Estimat Glomerular Filtration Rate 41 Date/Time Source Procedure Growth Status 07/20/17 16:20 Blood Peripheral Aerobic Blood Culture - Preliminary NO GROWTH IN 1 DAY Resulted 07/20/17 16:20 Blood Peripheral Anaerobic Blood Culture - Preliminary NO GROWTH IN 1 DAY Resulted 07/20/17 14:55 Urine Catheterized Urine Urine Culture Pending Received Result Diagram: 07/21/17 0648 07/21/17 0648 Imaging RADIOLOGY STUDIES/FILMS REVIEWED Lower Extremity Ultrasound 07/21/17 0000 Signed Impressions: Service Date/Time: Friday, July 21, 2017 08:01 - CONCLUSION: Negative exam. No sonographic or Doppler findings of deep venous thrombosis. Lai Jones MD Head CT 07/20/17 0000 Signed Impressions: Service Date/Time: Thursday, July 20, 2017 15:26 - CONCLUSION: 1. Stable evaluation of the brain. 2. No evidence of acute infarct, hemorrhage, mass or edema. Bear Middleton MD Chest X-Ray 07/20/17 0000 Signed Impressions: Service Date/Time: Thursday, July 20, 2017 15:07 - CONCLUSION: 1. Cardiomegaly with mild positive fluid balance. 2. Bibasilar patchy airspace disease, likely atelectasis. Apollo Montague MD Assessment and Plan Assessment and Plan IMPRESSION Known bilateral kidney stones Hx recurrent UTI, now with UTI again - last CT January no obstruction, (+) luis stones Hx MDR GNR organisms Obesity Hx sleep apnea RECOMMENDATION Change Invanz to Meropenem while UC still pending Will do CT A/P to reevaluate if with any hydronephrosis Follow C/S Monitor progress I will determine course of Rx once work-up is completed I will follow along with you Thank you for this consultation Discussed Condition With Explained plan to patient D/W Caitlyn Bee MD Jul 21, 2017 13:03
[2017-07-21] MEDS ORDERED: [UNRECOGNIZED DRUG - OTHER] PRN (13:15)
[2017-07-21] MEDS ORDERED: MISCELLANEOUS PHARMACY INFORMATION XX PRN (13:15)
[2017-07-21 16:00] VITALS: BP 127/61; PULSE 81; RESP 16; TEMP 98.5; O2SAT 95
[2017-07-21] MEDS: MEROPENEM INJ 1,000 MG in SODIUM CHLORIDE 0.9% INJ 100 ML IV SCH (16:00)
[2017-07-21] MEDS: ENOXAPARIN SODIUM 30 MG/0.3 ML SYRINGE SQ SCH (18:00)
[2017-07-21] MEDS ORDERED: ZOLPIDEM TARTRATE 10 MG TAB PO PRN (21:00)
[2017-07-21 21:01] VITALS: BP 137/91; PULSE 81; RESP 18; TEMP 99.7; O2SAT 90
[2017-07-21] MEDS: PRAVASTATIN SOD 40 MG TAB PO SCH (21:38)
[2017-07-21] MEDS: ZOLPIDEM TARTRATE 5 MG TAB PO PRN (22:00)
[2017-07-22] MEDS ORDERED: DIATRIZOATE MEGLUM/DIATRIZOATE SOD 9 ML CUP PO ONE (01:00)
[2017-07-22 01:23] VITALS: BP 134/62; PULSE 80; RESP 18; TEMP 100.7; O2SAT 91
[2017-07-22] MEDS: MEROPENEM INJ 1,000 MG in SODIUM CHLORIDE 0.9% INJ 100 ML IV SCH ×2 (01:47→14:44)
[2017-07-22] MEDS: SODIUM CHLORIDE 0.9% FLUSH 10 ML FLUSH IV FLUSH SCH ×2 (02:24→10:04)
[2017-07-22 05:28] VITALS: BP 141/62; PULSE 73; RESP 18; TEMP 99.9; O2SAT 94
[2017-07-22] MEDS: LEVOTHYROXINE SODIUM 150 MCG TAB PO SCH (05:36)
[2017-07-22] MEDS: ACETAMINOPHEN/HYDROcodone 325 MG/10 MG TAB PO PRN ×2 (06:20→20:23)
--- NOTE | 2017-07-22 06:54 | RADRPT ---
EXAM DATE/TIME: 07/22/2017 06:00 [place] COMPARISON: CT ABDOMEN & PELVIS W/O CONTRAST, February 03, 2017, 13:00. INDICATIONS : History of bilateral kidney stone, evaluate for obstruction. ORAL CONTRAST: Prescribed oral contrast ingested. RADIATION DOSE: 29.40 CTDIvol (mGy) ; Patient body habitus MEDICAL HISTORY : Hypothyroidism. Cardiovascular disease Dementia. kidney stones SURGICAL HISTORY : None. ENCOUNTER: Initial ACUITY: 3 days PAIN SCALE: 6/10 LOCATION: abdomen TECHNIQUE: Volumetric scanning of the abdomen and pelvis was performed. Using automated exposure control and ad justment of the mA and/or kV according to patient size, radiation dose was kept as low as reasonably achievable to obtain optimal diagnostic quality images. DICOM format image data is available electro nically for review and comparison. FINDINGS: LOWER LUNGS: The visualized lower lungs are clear. LIVER: Homogeneous density without lesion. There is no dilation of the biliary tree. No calcified gallston es. SPLEEN: Normal size without lesion. PANCREAS: Within normal limits. KIDNEYS: There is a 1.6 x 0.9 cm proximal right ureteral calculus with moderate hydronephrosis. There is been interval increase in the staghorn calculus in left kidney with no obstruction. There is mild atrophic change. There is a 1 cm calcification in the lower pole the right kidney. ADRENAL GLANDS: Within normal limits. VASCULAR: There is no aortic aneurysm. BOWEL/MESENTERY: The stomach, small bowel, and colon demonstrate no acute abnormality. There is no free intraperitone al air or fluid. ABDOMINAL WALL: Within normal limits. RETROPERITONEUM: There is no lymphadenopathy. BLADDER: No wall thickening or mass. REPRODUCTIVE: There is a stable area of soft tissue with calcification in the right side of the pelvis. INGUINAL: There is no lymphadenopathy or hernia. MUSCULOSKELETAL: Osteopenia, degenerative change and scoliosis. The patient status post bilateral hip arthroplasty wit h streak artifact. There is a moderate scoliosis CONCLUSION: 1. Proximal right ureteral calculus with moderate right hydronephrosis. 2. No increase in the size of the left staghorn calculus with no obstruction and atrophic change. 3. Stable soft tissue area in the right side the pelvis with calcification. Terrence Fierro MD on July 22, 2017 at 6:44 Board Certified Radiologist. This report was verified electronically.
[2017-07-22 08:03] VITALS: BP 132/60; PULSE 69; RESP 12; TEMP 98.5; O2SAT 93
[2017-07-22] MEDS ORDERED: Vancomycin Consult Pharmacy 1 EA OTHER SCH (09:30)
--- NOTE | 2017-07-22 09:35 | HHI.PR ---
Subjective Remarks Follow up for UTI and GPC bacteremia. Patient is sleeping in bed. Wakes up on verbal commands and states she is tired. Denies any other acute concerns. Objective Vitals Vital Signs Date Time Temp Pulse Resp B/P (MAP) Pulse Ox O2 Delivery O2 Flow Rate FiO2 07/22/17 08:03 98.5 69 12 132/60 (84) 93 07/22/17 05:28 99.9 73 18 141/62 (88) 94 07/22/17 01:23 100.7 80 18 134/62 (86) 91 07/21/17 21:01 99.7 81 18 137/91 (106) 90 07/21/17 16:00 98.5 81 16 127/61 (83) 95 07/21/17 12:00 98.2 77 16 122/56 (78) 91 I/O 07/21/17 07/21/17 07/21/17 07/22/17 07/22/17 07/22/17 07:00 15:00 23:00 07:00 15:00 23:00 Intake Total 100 ml Balance 100 ml Intake IV Total 100 ml # Voids 3 2 3 # Bowel Movements 0 Result Diagram: 07/21/17 0648 07/21/17 0648 Imaging Last Impressions Lower Extremity Ultrasound 07/21/17 0000 Signed Impressions: Service Date/Time: Friday, July 21, 2017 08:01 - CONCLUSION: Negative exam. No sonographic or Doppler findings of deep venous thrombosis. Lai Jones MD Abdomen/Pelvis CT 07/21/17 0000 Signed Impressions: Service Date/Time: July 06:00 - CONCLUSION: 1. Proximal right ureteral calculus with moderate right hydronephrosis. 2. No increase in the size of the left staghorn calculus with no obstruction and atrophic change. 3. Stable soft tissue area in the right side the pelvis with calcification. Terrence Fierro MD Head CT 07/20/17 0000 Signed Impressions: Service Date/Time: Thursday, July 20, 2017 15:26 - CONCLUSION: 1. Stable evaluation of the brain. 2. No evidence of acute infarct, hemorrhage, mass or edema. Bear Middleton MD Chest X-Ray 07/20/17 0000 Signed Impressions: Service Date/Time: Thursday, July 20, 2017 15:07 - CONCLUSION: 1. Cardiomegaly with mild positive fluid balance. 2. Bibasilar patchy airspace disease, likely atelectasis. Apollo Montague MD Objective Remarks GENERAL: Alert, NAD. SKIN: Warm and dry. HEAD: Normocephalic. EYES: No scleral icterus. No injection or drainage. NECK: Supple, trachea midline. No JVD or lymphadenopathy. CARDIOVASCULAR: Regular rate and rhythm without murmurs, gallops, or rubs. RESPIRATORY: Breath sounds equal bilaterally. No accessory muscle use. GASTROINTESTINAL: Abdomen soft, non-tender, nondistended. MUSCULOSKELETAL: No cyanosis, or edema. BACK: Nontender without obvious deformity. No CVA tenderness. Procedures None. A/P Problem List: (1) UTI (urinary tract infection) ICD Code: N39.0 - Urinary tract infection, site not specified Status: Acute (2) Hypothyroidism ICD Code: E03.9 - Hypothyroidism, unspecified Assessment and Plan Ms. Mcfarlane is a 77 year old female with a previous history of ESBL UTI who was admitted to the hospital from [facility] due to altered mental status. Patient overtly confused, decreased responsiveness, slurred speech, with a low BP. She has been on Macrobid recently. - Urinary tract infection - Currently on Ertapenem. WBC 22.9 --> 12.4. - ID following, changed Ertapenem to Meropenem. - Blood cx shows GPC. In the afternoon blood culture shows coag-negative staph. - Patient does have orthopedic hardware. - We'll add IV vancomycin. - Hypothyroidism - Continue Levothyroxine 150mcg Qday. - Hyperlipidemia - Continue Pravastatin 40mg QHS. - Insomnia - continue Ambien but reduced dose to 5mg QHS. DNR. Lovenox 30mg QHS. Edgardo Sands DO Jul 22, 2017 9:35 am
[2017-07-22] MEDS: PREGABALIN 75 MG CAP PO SCH ×3 (10:12→20:02)
[2017-07-22] MEDS: FAMOTIDINE 20 MG TAB PO SCH ×2 (10:12→20:01)
[2017-07-22] MEDS: DOCUSATE SODIUM 100 MG CAP PO SCH ×2 (10:12→20:01)
[2017-07-22] MEDS: BACLOFEN 10 MG TAB PO SCH ×2 (10:13→20:01)
[2017-07-22] MEDS: DULoxetine HCl DR 60 MG CAP PO SCH (10:13)
[2017-07-22] MEDS ORDERED: VANCOMYCIN INJ 1,750 MG in SODIUM CHLORID 0.9% 500 ML INJ 500 ML IV ONE (11:00)
[2017-07-22 12:00] VITALS: BP 124/60; PULSE 65; RESP 18; TEMP 97; O2SAT 92
[2017-07-22] MEDS ORDERED: VANCOMYCIN INJ 1,000 MG in SODIUM CHLOR 0.9% 250 ML INJ 250 ML IV ONE (12:45)
--- NOTE | 2017-07-22 12:50 | HHI.IDPN ---
Subjective Subjective Remarks Patient is a 77-year-old female, [facility], brought into the hospital for lethargy. She apparently has been sleeping more than her usual. Her urine was also noted to be dark with some odor. She has had problem with recurrent UTI, and has known bilateral kidney stones. She sees Dr. Munguia. The last note I saw in [facility] was from June of this year. She apparently has been passing small stones. The last CT scan in [facility] was from January and there was the presence of the bilateral kidney stones, but no hydronephrosis. Per urology note she is supposed to be on chronic antibiotic suppression with Macrobid. On presentation patient has been afebrile. Her WBC was initially elevated at 22,000, and that has improved. Her urinalysis did show evidence of pyuria. She denies any respiratory complaint. She has not had any nausea or vomiting or any abdominal pain. There was a prior urine culture from last year that had Pseudomonas and ESBL positive organism. Patient currently is awake and alert. As not look toxic appearing. Highest temperature has been 99. Infectious disease consultation has been requested to evaluate the patient. Notes reviewed Temps low grade No abdominal pain CT A/P - has stones and has L hydro BC with Coag Neg Staph UC mixed suzi Creat better Antibiotics Current Medications Meropenem Vancomycin Medications (Trade) Dose Ordered Sig/William Route Start Time Stop Time Status Last Admin (NS Flush) 2 ml UNSCH PRN IV FLUSH 07/20/17 14:45 07/20/17 15:02 (NS Flush) 2 ml UNSCH PRN IV FLUSH 07/20/17 20:00 (NS Flush) 2 ml BID IV FLUSH 07/20/17 21:00 07/22/17 10:04 (Narcan Inj) 0.4 mg UNSCH PRN IV PUSH 07/20/17 20:00 (Lioresal) 10 mg BID PO 07/21/17 09:00 07/22/17 10:13 (Colace) 100 mg BID PO 07/21/17 09:00 07/22/17 10:12 (Cymbalta Dr) 60 mg DAILY PO 07/21/17 09:00 07/22/17 10:13 (Pepcid) 10 mg BID PO 07/21/17 09:00 07/22/17 10:12 (Brick 10-325 Mg) 1 tab Q8H PRN PO 07/20/17 23:15 07/22/17 06:20 (Synthroid) 150 mcg DAILY@0600 PO 07/21/17 06:00 07/22/17 05:36 (Pravachol) 40 mg HS PO 07/21/17 21:00 07/21/17 21:38 (Lyrica) 150 mg BID PO 07/21/17 09:00 07/22/17 10:12 (Lyrica) 300 mg DAILY@1400 PO 07/21/17 14:00 07/21/17 15:59 Patient Own Medication PT OWN MED: (Topiram... BID PO 07/21/17 09:00 Future Hold (ASP Crit: Other exception documentation) 1 UNSCH X1 PRN .XX 07/21/17 13:15 07/22/17 13:14 ([facility]acy Information) 1 UNSCH X1 PRN XX 07/21/17 13:15 07/22/17 13:14 Meropenem 1000 mg/ Sodium Chloride 100 ml @ 200 mls/hr Q12H IV 07/21/17 14:00 07/22/17 01:47 (Ambien) 5 mg HS PRN PO 07/21/17 21:00 07/21/17 22:00 (Lovenox Inj) 30 mg Q24H SQ 07/21/17 18:00 07/21/17 18:00 Pharmacy Profile Note 0 ml @ 0 mls/hr UNSCH OTHER 07/22/17 09:30 Vancomycin HCl 1750 mg/Sodium Chloride 517.5 ml @ 258.75 mls/ hr ONCE ONCE IV 07/22/17 11:00 07/22/17 12:59 07/22/17 10:04 Lines PIV Past Medical History Neuropathy Chronic pain CAD s/p stents Sleep apnea- was on cpap at home previously, but now not on it because machine is not working and [facility] did not arrange for new doc or equipment yet Kidney stones Hypothyroidism Past Surgical History Cardiac catheter and Stenting Cataract Kidney stone sx Hip sx Back sx Knee sx 2 Bladder sx Allergies: Coded Allergies: Sulfa (Sulfonamide Antibiotics) (Unverified Allergy, Severe, 07/15/17) codeine (Unverified Allergy, Severe, 07/15/17) morphine (Unverified Allergy, Severe, 07/15/17) amoxicillin (Unverified Allergy, Unknown, UNKNOWN, 07/15/17) *MDRO Multi-Drug Resistant Organism (Verified Adverse Reaction, Unknown, 07/15/17) MRSA PCR screen (nares) POSITIVE - 04/13/16 ESBL+E.Coli-(urine & blood-04/13/16) & (urine-06/16/16);MDR-Pseudomonas (urine-06/16/16) Objective . Vital Signs Date Time Temp Pulse Resp B/P (MAP) Pulse Ox O2 Delivery O2 Flow Rate FiO2 07/22/17 08:03 98.5 69 12 132/60 (84) 93 07/22/17 05:28 99.9 73 18 141/62 (88) 94 07/22/17 01:23 100.7 80 18 134/62 (86) 91 07/21/17 21:01 99.7 81 18 137/91 (106) 90 07/21/17 16:00 98.5 81 16 127/61 (83) 95 07/22/17 07/22/17 07/23/17 15:00 23:00 07:00 Intake Total 500 ml Balance 500 ml Intake IV Total 500 ml . Laboratory Tests Test 07/20/17 13:40 07/21/17 06:48 White Blood Count 22.9 TH/MM3 12.4 TH/MM3 Red Blood Count 4.32 MIL/MM3 3.93 MIL/MM3 Hemoglobin 13.2 GM/DL 11.8 GM/DL Hematocrit 40.6 % 36.8 % Mean Corpuscular Volume 93.9 FL 93.7 FL Mean Corpuscular Hemoglobin 30.6 PG 30.0 PG Mean Corpuscular Hemoglobin Concent 32.6 % 32.1 % Red Cell Distribution Width 15.7 % 15.5 % Platelet Count 146 TH/MM3 107 TH/MM3 Mean Platelet Volume 10.8 FL 11.3 FL CBC Comment AUTO DIFF AUTO DIFF Differential Total Cells Counted 100 100 Neutrophils % (Manual) 65 % 68 % Band Neutrophils % 15 % 13 % Lymphocytes % 11 % 9 % Monocytes % 9 % 8 % Neutrophils # (Manual) 18.3 TH/MM3 10.0 TH/MM3 Differential Comment FINAL DIFF MANUAL FINAL DIFF MANUAL Platelet Estimate NORMAL LOW Platelet Morphology Comment NORMAL ENLARGED Eosinophils % 2 % Laboratory Tests Test 07/20/17 13:40 07/20/17 16:20 07/21/17 06:48 Blood Urea Nitrogen 29 MG/DL 30 MG/DL Creatinine 1.89 MG/DL 1.27 MG/DL Random Glucose 118 MG/DL 81 MG/DL Total Protein 6.7 GM/DL Albumin 2.7 GM/DL Calcium Level 8.9 MG/DL 8.2 MG/DL Alkaline Phosphatase 81 U/L Aspartate Amino Transf (AST/SGOT) 21 U/L Alanine Aminotransferase (ALT/SGPT) 15 U/L Total Bilirubin 0.8 MG/DL Sodium Level 142 MEQ/L 142 MEQ/L Potassium Level 4.6 MEQ/L 3.6 MEQ/L Chloride Level 110 MEQ/L 110 MEQ/L Carbon Dioxide Level 25.6 MEQ/L 23.9 MEQ/L Anion Gap 6 MEQ/L 8 MEQ/L Estimat Glomerular Filtration Rate 26 ML/MIN 41 ML/MIN Troponin I LESS THAN 0.02 NG/ML Thyroid Stimulating Hormone 3rd Gen 0.101 uIU/ML Lactic Acid Level 2.1 mmol/L Microbiology Date/Time Source Procedure Growth Status 07/20/17 16:20 Blood Peripheral Aerobic Blood Culture - Preliminary Staph Sp Coagulase Negative Resulted 07/20/17 16:20 Anaerobic Blood Culture - Preliminary Staph Sp Coagulase Negative Resulted 07/20/17 16:20 Blood Peripheral Aerobic Blood Culture - Preliminary Staph Sp Coagulase Negative Resulted 07/20/17 16:20 Anaerobic Blood Culture - Preliminary Staph Sp Coagulase Negative Resulted 07/20/17 14:55 Urine Catheterized Urine Urine Culture - Final Complete Imaging Lower Extremity Ultrasound 07/21/17 0000 Signed Impressions: Service Date/Time: Friday, July 21, 2017 08:01 - CONCLUSION: Negative exam. No sonographic or Doppler findings of deep venous thrombosis. Lai Jones MD Abdomen/Pelvis CT 07/21/17 0000 Signed Impressions: Service Date/Time: July 06:00 - CONCLUSION: 1. Proximal right ureteral calculus with moderate right hydronephrosis. 2. No increase in the size of the left staghorn calculus with no obstruction and atrophic change. 3. Stable soft tissue area in the right side the pelvis with calcification. Terrence Fierro MD Head CT 07/20/17 0000 Signed Impressions: Service Date/Time: Thursday, July 20, 2017 15:26 - CONCLUSION: 1. Stable evaluation of the brain. 2. No evidence of acute infarct, hemorrhage, mass or edema. Bear Middleton MD Chest X-Ray 07/20/17 0000 Signed Impressions: Service Date/Time: Thursday, July 20, 2017 15:07 - CONCLUSION: 1. Cardiomegaly with mild positive fluid balance. 2. Bibasilar patchy airspace disease, likely atelectasis. Apollo Montague MD Physical Exam GENERAL: Patient is an obese, well-developed patient, awake and alert, not in respiratory distress. SKIN: Warm and dry. No generalized rash, no ecchymoses and no evidence of embolic lesions. HEAD: Atraumatic. Normocephalic. No temporal wasting, or tenderness. EYES: [place] conjunctiva. No petechia or hemorrhage. Pupils equal, round and reactive to light. Extraocular movements full and intact. No scleral icterus. No injection or drainage. EARS, NOSE AND THROAT: Nose without bleeding or purulent nasal discharge. No sinus tenderness. Mucous membranes pink and moist. No oral lesions noted. No exudate. No oral thrush. NECK: Trachea midline. Supple and not tender, no meningeal signs CARDIOVASCULAR: Regular rate and rhythm. No murmurs, rubs or gallops heard RESPIRATORY: Clear to auscultation. Breath sounds equal bilaterally. No rales , wheezing or rhonchi. Decreased breath sounds at the bases ABDOMEN: Soft, obese, non-tender, nondistended. Bowel sounds present and normoactive. No guarding. No rebound. No organomegaly. EXTREMITIES: No clubbing, cyanosis. Has bilateral pedal edema. No calf tenderness. Well perfused and warm. NEUROLOGICAL: Awake and alert. Cranial nerves grossly intact. Motor grossly within normal limits. PSYCHIATRIC: Normal affect, calm and cooperative. LINE: No evidence of infection Assessment & Plan Remarks IMPRESSION Known bilateral kidney stones, now with obstruction Hx recurrent UTI, now with UTI again, has hydro L - last CT January no obstruction, (+) luis stones Hx MDR GNR organisms BC with Coag Neg Staph, ?significance Obesity Hx sleep apnea RECOMMENDATION Continue Meropenem Repeat UA and C/S Repeat BC Agree with IV vanco Consult urology to evaluate the hydro L in setting of UTI Follow C/S Monitor progress Caitlyn Lynn MD Jul 22, 2017 12:50
[2017-07-22 16:00] VITALS: BP 121/58; PULSE 67; RESP 18; TEMP 98.7; O2SAT 91
--- NOTE | 2017-07-22 17:07 | PD.CONS ---
HPI Service Urology Consult Requested By Dr. Lynn Reason for Consult Obstructing right proximal ureteral calculus Primary Care Physician Unknown Diagnosis: (1) UTI (urinary tract infection) ICD Code: N39.0 - Urinary tract infection, site not specified (2) Hypothyroidism ICD Code: E03.9 - Hypothyroidism, unspecified History of Present Illness 77-year-old female with history bilateral renal calculi including a staghorn calculus of the left kidney with atrophic changes who is now admitted for right sided obstructive uropathy and a urinary tract infection. Patient was exhibiting mental status changes and was brought to the emergency room from the [facility] where she resides. Imaging included a CT scan that demonstrated a 1.6 cm obstructing right proximal ureteral stone as well as an additional 1 cm stone involving the lower pole of the right kidney. Other findings included a staghorn calculus involving the left kidney which has increased somewhat in size since her prior imaging several months ago along with atrophic changes to the left kidney. A urology consult was placed regarding further management of the right sided obstructive uropathy. Patient is receiving intravenous antibiotics under the direction of infectious disease physician Dr. Lynn. I reviewed the actual CT scan images and concur with the radiologist impression. At the time of consultation the patient reported that her pain was well managed and was not any acute distress. Patient is a somewhat poor historian. Review of Systems ROS Limitations: Poor Historian Constitutional: DENIES: Fever, Chills Gastrointestinal: COMPLAINS OF: Abdominal pain (right abdomen) Musculoskeletal: COMPLAINS OF: Back pain (right flank) Except as stated in HPI: all other systems reviewed are Neg Past Family Social History Past Medical History Recurrent nephrolithiasis Hypothyroidism Sleep apnea Coronary artery disease Neuropathy Past Surgical History Status post percutaneous nephrolithotomy Status post cardiac stent placement Status post cataract surgery Status post multiple hip surgeries Status post multiple back surgeries Status post multiple knee surgeries Reported Medications Refer to EMR Allergies: Coded Allergies: Sulfa (Sulfonamide Antibiotics) (Unverified Allergy, Severe, 07/15/17) codeine (Unverified Allergy, Severe, 07/15/17) morphine (Unverified Allergy, Severe, 07/15/17) amoxicillin (Unverified Allergy, Unknown, UNKNOWN, 07/15/17) *MDRO Multi-Drug Resistant Organism (Verified Adverse Reaction, Unknown, 07/15/17) MRSA PCR screen (nares) POSITIVE - 04/13/16 ESBL+E.Coli-(urine & blood-04/13/16) & (urine-06/16/16);MDR-Pseudomonas (urine-06/16/16) Active Ordered Medications Refer to EMR Family History No family history nephrolithiasis or other pathology Social History Former smoker who quit back in 1989 Moderate alcohol use in the past long term facility resident Physical Exam Vital Signs Date Time Temp Pulse Resp B/P (MAP) Pulse Ox O2 Delivery O2 Flow Rate FiO2 07/22/17 16:00 98.7 67 18 121/58 (79) 91 07/22/17 12:00 97.0 65 18 124/60 (81) 92 07/22/17 08:03 98.5 69 12 132/60 (84) 93 07/22/17 05:28 99.9 73 18 141/62 (88) 94 07/22/17 01:23 100.7 80 18 134/62 (86) 91 07/21/17 21:01 99.7 81 18 137/91 (106) 90 Physical Exam GENERAL: This is a well-nourished, well-developed patient, in no apparent distress. SKIN: No rashes, ecchymoses or lesions. Cool and dry. HEAD: Atraumatic. Normocephalic. No temporal or scalp tenderness. EYES: Pupils equal round and reactive. Extraocular motions intact. No scleral icterus. No injection or drainage. ENT: Nose without bleeding, purulent drainage or septal hematoma. Throat without erythema, tonsillar hypertrophy or exudate. Uvula midline. Airway patent. NECK: Trachea midline. No JVD or lymphadenopathy. Supple, nontender, no meningeal signs. CARDIOVASCULAR: Regular rate and rhythm without murmurs, gallops, or rubs. RESPIRATORY: Clear to auscultation. Breath sounds equal bilaterally. No wheezes , rales, or rhonchi. GASTROINTESTINAL: Abdomen soft, non-tender, nondistended. No hepato-splenomegaly , or palpable masses. No guarding. GENITOURINARY: No CVA tenderness MUSCULOSKELETAL: Extremities without clubbing, cyanosis, or edema. No joint tenderness, effusion, or edema noted. No calf tenderness. Negative Homans sign bilaterally. NEUROLOGICAL: Awake and alert. Cranial nerves II through XII intact. Motor and sensory grossly within normal limits. Five out of 5 muscle strength in all muscle groups. Normal speech. Lab results reviewed: Yes Date/Time Source Procedure Growth Status 07/20/17 16:20 Blood Peripheral Aerobic Blood Culture - Preliminary Staph Sp Coagulase Negative Resulted 07/20/17 16:20 Anaerobic Blood Culture - Preliminary Staph Sp Coagulase Negative Resulted 07/20/17 14:55 Urine Catheterized Urine Urine Culture - Final Complete Result Diagram: 07/21/17 0648 07/21/17 0648 Personally reviewed images: Yes Imaging Last Impressions Lower Extremity Ultrasound 07/21/17 0000 Signed Impressions: Service Date/Time: Friday, July 21, 2017 08:01 - CONCLUSION: Negative exam. No sonographic or Doppler findings of deep venous thrombosis. Lai Jones MD Abdomen/Pelvis CT 07/21/17 0000 Signed Impressions: Service Date/Time: July 06:00 - CONCLUSION: 1. Proximal right ureteral calculus with moderate right hydronephrosis. 2. No increase in the size of the left staghorn calculus with no obstruction and atrophic change. 3. Stable soft tissue area in the right side the pelvis with calcification. Terrence Fierro MD Head CT 07/20/17 0000 Signed Impressions: Service Date/Time: Thursday, July 20, 2017 15:26 - CONCLUSION: 1. Stable evaluation of the brain. 2. No evidence of acute infarct, hemorrhage, mass or edema. Bear Middleton MD Chest X-Ray 07/20/17 0000 Signed Impressions: Service Date/Time: Thursday, July 20, 2017 15:07 - CONCLUSION: 1. Cardiomegaly with mild positive fluid balance. 2. Bibasilar patchy airspace disease, likely atelectasis. Apollo Montague MD Assessment and Plan Assessment and Plan Urologic impression: #1 16 mm obstructing right proximal ureteral calculus #2 urinary tract infection related to right sided obstructive uropathy #3 1 cm right lower pole renal calculus #4 left renal atrophy / staghorn calculus with interval increase in size since last imaging study several months ago Plan: #1 agree with present antibiotic therapy #2 nothing by mouth after midnight #3 patient scheduled for cystoscopy, right retrograde pyelogram and right ureteral stent placement for tomorrow morning #4 will eventually require outpatient shockwave lithotripsy of right sided calculi #5 conservative management for the left staghorn calculus for the time being Tam Munguia MD Jul 22, 2017 17:07
--- NOTE | 2017-07-22 17:57 | ECHRPT ---
Indication: Acute and subacute endocarditis, unspecified CONCLUSIONS The left ventricular systolic function is normal with an estimated ejection fraction in the range of 55-60%. Wall thickness is normal. Normal left ventricular size. There is moderate to severe tricuspid valve regurgitation. The estimated pulmonary arterial pressure is 49.4 mmHg. There is estimated mild pulmonary hypertension present (range 40-50 mmHg). BP: 144 / 68 HR: 86 Rhythm: Sinus MEASUREMENTS (Male / Female) Normal Values Technical Quality:Fair 2D ECHO LV Diastolic Diameter PLAX 4.0 cm 4.2 - 5.9 / 3.9 - 5.3 cm LV Systolic Diameter PLAX 3.0 cm IVS Diastolic Thickness 1.0 cm 0.6 - 1.0 / 0.6 - 0.9 cm LVPW Diastolic Thickness 1.0 cm 0.6 - 1.0 / 0.6 - 0.9 cm LV Relative Wall Thickness 0.5 LVOT Diameter 1.6 cm M-MODE Aortic Root Diameter MM 2.9 cm LA Systolic Diameter MM 3.7 cm LA Ao Ratio MM 1.3 AV Cusp Separation MM 1.8 cm DOPPLER AV Peak Velocity 144.0 cm/s AV Peak Gradient 8.3 mmHg LVOT Peak Velocity 116.0 cm/s LVOT Peak Gradient 5.4 mmHg AV Area Cont Eq pk 1.6 cm Mitral E Point Velocity 83.9 cm/s Mitral A Point Velocity 83.9 cm/s Mitral E to A Ratio 1.0 LV E' Lateral Velocity 8.5 cm/s Mitral E to LV E' Lateral Ratio 9.9 LV E' Septal Velocity 7.3 cm/s Mitral E to LV E' Septal Ratio 11.5 TR Peak Velocity 314.0 cm/s TR Peak Gradient 39.4 mmHg Right Atrial Pressure 10.0 mmHg Pulmonary Artery Systolic Pressu 49.4 mmHg Right Ventricular Systolic Press 49.4 mmHg PV Peak Velocity 156.0 cm/s PV Peak Gradient 9.7 mmHg FINDINGS LEFT VENTRICLE The left ventricular systolic function is normal with an estimated ejection fraction in the range of 55-60%. Wall thickness is measured at the upper limits of normal. Normal left ventricular size. RIGHT VENTRICLE Normal right ventricular size and systolic function. LEFT ATRIUM The left atrial size is normal. RIGHT ATRIUM The right atrial size is normal. ATRIAL SEPTUM Normal atrial septal thickness without atrial level shunting by limited color doppler interrogation. AORTA The aortic root and proximal ascending aorta are normal in size on limited imaging. MITRAL VALVE Structurally normal mitral valve. No mitral valve stenosis or regurgitation. AORTIC VALVE Trileaflet aortic valve. No aortic valve stenosis or regurgitation. TRICUSPID VALVE There is moderate to severe tricuspid valve regurgitation. The estimated pulmonary arterial pressure is 49.4 mmHg. There is estimated mild pulmonary hypertension present (range 40-50 mmHg). PULMONARY VALVE No pulmonary valve regurgitation or stenosis. VESSELS The inferior vena cava is normal in size. PERICARDIUM No pericardial effusion. Sung Buckner MD (Electronically Signed) Final Date:22 July 2017 17:56
[2017-07-22] MEDS: ENOXAPARIN SODIUM 30 MG/0.3 ML SYRINGE SQ SCH (18:18)
[2017-07-22 18:41] LABS: BACTERIA, URINE MANY /hpf; BLOOD, URINE MOD (NEG); GLUCOSE,URINE NEG (NEG); KETONE, URINE NEG (NEG); NITRITE,URINE NEG (NEG); SQUAMOUS EPITHELIAL CELL URINE 3 /hpf (0-5); URINE COLOR YELLOW (YELLW/STRAW)
[2017-07-22 18:46] LABS: COMMENT (UR) CATH-CULTURE IND; CULTURE IF INDICATED CATH CULTURE IND
[2017-07-22] MEDS ORDERED: METOPROLOL TARTRATE 25 MG TAB PO PRN (19:15)
[2017-07-22] MEDS ORDERED: SODIUM CHLORID 0.9% 500 ML IV PRN (19:15)
[2017-07-22] MEDS ORDERED: POVIDONE IODINE 5% (ANTISEPSIS KIT) 4 APPLICATIONS EACH NARE PRN (19:15)
[2017-07-22] MEDS ORDERED: LACTATED RINGER'S 1000 ML IV PRN (19:15)
[2017-07-22] MEDS ORDERED: CHLORHEXIDINE GLUCONATE 2 % 1 PACK (2 CLOTHS) TOPICAL PRN (19:15)
[2017-07-22 20:00] VITALS: BP 128/68; PULSE 73; RESP 18; TEMP 98.3; O2SAT 95
[2017-07-22] MEDS: PRAVASTATIN SOD 40 MG TAB PO SCH (20:01)
[2017-07-22] MEDS: ZOLPIDEM TARTRATE 5 MG TAB PO PRN (20:22)
[2017-07-23 01:00] VITALS: BP 140/78; PULSE 75; RESP 20; TEMP 99.1; O2SAT 95
[2017-07-23] MEDS: MEROPENEM INJ 1,000 MG in SODIUM CHLORIDE 0.9% INJ 100 ML IV SCH ×2 (02:24→15:07)
[2017-07-23 04:00] VITALS: BP 125/56; PULSE 68; RESP 16; TEMP 98.5; O2SAT 94
[2017-07-23] MEDS: LEVOTHYROXINE SODIUM 150 MCG TAB PO SCH (05:32)
[2017-07-23] MEDS: DULoxetine HCl DR 60 MG CAP PO SCH (07:09)
[2017-07-23] MEDS: DOCUSATE SODIUM 100 MG CAP PO SCH ×2 (07:09→21:29)
[2017-07-23] MEDS: FAMOTIDINE 20 MG TAB PO SCH ×2 (07:09→21:29)
[2017-07-23] MEDS: PREGABALIN 75 MG CAP PO SCH ×3 (07:10→21:31)
[2017-07-23] MEDS: BACLOFEN 10 MG TAB PO SCH ×2 (07:10→21:29)
[2017-07-23] MEDS: SODIUM CHLORIDE 0.9% FLUSH 10 ML FLUSH IV FLUSH SCH ×2 (07:10→21:00)
[2017-07-23 07:38] VITALS: BP 130/62; PULSE 65; RESP 12; TEMP 97.7; O2SAT 90
[2017-07-23] MEDS ORDERED: IOHEXOL 350 MG/ML 50 ML BTL (for RAD DIAG) OTHER ONE (12:00)
[2017-07-23] MEDS: DEXT 5%-NACL 0.45% 1000 ML INJ 1,000 ML IV SCH ×2 (13:15→13:45)
--- NOTE | 2017-07-23 14:28 | HHI.IDPN ---
Subjective Subjective Remarks Patient is a 77-year-old female, [facility], brought into the hospital for lethargy. She apparently has been sleeping more than her usual. Her urine was also noted to be dark with some odor. She has had problem with recurrent UTI, and has known bilateral kidney stones. She sees Dr. Munguia. The last note I saw in [facility] was from June of this year. She apparently has been passing small stones. The last CT scan in [facility] was from January and there was the presence of the bilateral kidney stones, but no hydronephrosis. Per urology note she is supposed to be on chronic antibiotic suppression with Macrobid. On presentation patient has been afebrile. Her WBC was initially elevated at 22,000, and that has improved. Her urinalysis did show evidence of pyuria. She denies any respiratory complaint. She has not had any nausea or vomiting or any abdominal pain. There was a prior urine culture from last year that had Pseudomonas and ESBL positive organism. Patient currently is awake and alert. As not look toxic appearing. Highest temperature has been 99. Infectious disease consultation has been requested to evaluate the patient. Notes reviewed Temps ok Just came back from procedure Had cysto and stent placement BC with Coag Neg Staph, no ID yet UC mixed suzi Creat better Antibiotics Current Medications Meropenem Vancomycin Medications (Trade) Dose Ordered Sig/William Route Start Time Stop Time Status Last Admin (NS Flush) 2 ml UNSCH PRN IV FLUSH 07/20/17 20:00 (NS Flush) 2 ml BID IV FLUSH 07/20/17 21:00 07/23/17 07:10 (Narcan Inj) 0.4 mg UNSCH PRN IV PUSH 07/20/17 20:00 (Lioresal) 10 mg BID PO 07/21/17 09:00 07/22/17 20:01 (Colace) 100 mg BID PO 07/21/17 09:00 07/22/17 20:01 (Cymbalta Dr) 60 mg DAILY PO 07/21/17 09:00 07/22/17 10:13 (Pepcid) 10 mg BID PO 07/21/17 09:00 07/22/17 20:01 ([place] 10-325 Mg) 1 tab Q8H PRN PO 07/20/17 23:15 07/22/17 20:23 (Synthroid) 150 mcg DAILY@0600 PO 07/21/17 06:00 07/23/17 05:32 (Pravachol) 40 mg HS PO 07/21/17 21:00 07/22/17 20:01 (Lyrica) 150 mg BID PO 07/21/17 09:00 07/22/17 20:02 (Lyrica) 300 mg DAILY@1400 PO 07/21/17 14:00 07/22/17 14:45 Patient Own Medication PT OWN MED: (Topiram... BID PO 07/21/17 09:00 Future Hold Meropenem 1000 mg/ Sodium Chloride 100 ml @ 200 mls/hr Q12H IV 07/21/17 14:00 07/23/17 02:24 (Ambien) 5 mg HS PRN PO 07/21/17 21:00 07/22/17 20:22 (Lovenox Inj) 30 mg Q24H SQ 07/21/17 18:00 07/22/17 18:18 Pharmacy Profile Note 0 ml @ 0 mls/hr UNSCH OTHER 07/22/17 09:30 Lactated Ringer's 1,000 ml @ 30 mls/hr Q24H PRN IV 07/22/17 19:15 07/25/17 19:14 Sodium Chloride 500 ml @ 30 mls/hr [id number] PRN IV 07/22/17 19:15 07/25/17 19:14 (Lopressor) 25 mg CLINICAL SERVICES DIRECTOR PRN PO 07/22/17 19:15 07/25/17 19:14 (Betadine 5% Antisepsis Kit) 1 applic CLINICAL SERVICES DIRECTOR PRN EACH NARE 07/22/17 19:15 07/25/17 19:14 (Chlorhexidine 2% Cloth) 3 pack CLINICAL SERVICES DIRECTOR PRN TOPICAL 07/22/17 19:15 07/25/17 19:14 Dextrose/Sodium Chloride 1,000 ml @ 75 mls/hr [id number] IV 07/23/17 13:45 Lines PIV Past Medical History Neuropathy Chronic pain CAD s/p stents Sleep apnea- was on cpap at home previously, but now not on it because machine is not working and [facility] did not arrange for new doc or equipment yet Kidney stones Hypothyroidism Past Surgical History Cardiac catheter and Stenting Cataract Kidney stone sx Hip sx Back sx Knee sx 2 Bladder sx Allergies: Coded Allergies: Sulfa (Sulfonamide Antibiotics) (Unverified Allergy, Severe, 07/15/17) codeine (Unverified Allergy, Severe, 07/15/17) morphine (Unverified Allergy, Severe, 07/15/17) amoxicillin (Unverified Allergy, Unknown, UNKNOWN, 07/15/17) *MDRO Multi-Drug Resistant Organism (Verified Adverse Reaction, Unknown, 07/15/17) MRSA PCR screen (nares) POSITIVE - 04/13/16 ESBL+E.Coli-(urine & blood-04/13/16) & (urine-06/16/16);MDR-Pseudomonas (urine-06/16/16) Objective . Vital Signs Date Time Temp Pulse Resp B/P (MAP) Pulse Ox O2 Delivery O2 Flow Rate FiO2 07/23/17 12:45 72 11 116/67 (83) 95 07/23/17 12:34 98.4 76 18 128/66 (86) 92 Nasal Cannula 2 07/23/17 07:38 97.7 65 12 130/62 (84) 90 07/23/17 04:00 98.5 68 16 125/56 (79) 94 07/23/17 01:00 99.1 75 20 140/78 (98) 95 07/22/17 20:00 98.3 73 18 128/68 (88) 95 07/22/17 16:00 98.7 67 18 121/58 (79) 91 . Microbiology Date/Time Source Procedure Growth Status 07/22/17 16:45 Blood Peripheral Aerobic Blood Culture - Preliminary NO GROWTH IN 1 DAY Resulted 07/22/17 16:45 Blood Peripheral Anaerobic Blood Culture - Preliminary NO GROWTH IN 1 DAY Resulted 07/20/17 16:20 Blood Peripheral Aerobic Blood Culture - Preliminary Staph Sp Coagulase Negative Resulted 07/20/17 16:20 Anaerobic Blood Culture - Preliminary Staph Sp Coagulase Negative Resulted 07/20/17 16:20 Blood Peripheral Aerobic Blood Culture - Preliminary Staph Sp Coagulase Negative Resulted 07/20/17 16:20 Anaerobic Blood Culture - Preliminary Staph Sp Coagulase Negative Resulted 07/22/17 18:00 Urine Catheterized Urine Urine Culture Pending Received 07/20/17 14:55 Urine Catheterized Urine Urine Culture - Final Complete Imaging Lower Extremity Ultrasound 12/6/17 0000 Signed Impressions: Service Date/Time: Friday, July 21, 2017 08:01 - CONCLUSION: Negative exam. No sonographic or Doppler findings of deep venous thrombosis. Lai Jones MD Abdomen/Pelvis CT 07/21/17 Signed Impressions: Service Date/Time: July 06:00 - CONCLUSION: 1. Proximal right ureteral calculus with moderate right hydronephrosis. 2. No increase in the size of the left staghorn calculus with no obstruction and atrophic change. 3. Stable soft tissue area in the right side the pelvis with calcification. Terrence Fierro MD Head CT 07/20/17 Signed Impressions: Service Date/Time: Thursday, July 20, 2017 15:26 - CONCLUSION: 1. Stable evaluation of the brain. 2. No evidence of acute infarct, hemorrhage, mass or edema. Bear Middleton MD Chest X-Ray 07/20/17 Signed Impressions: Service Date/Time: Thursday, July 20, 2017 15:07 - CONCLUSION: 1. Cardiomegaly with mild positive fluid balance. 2. Bibasilar patchy airspace disease, likely atelectasis. Apollo Montague MD Physical Exam GENERAL: awake and alert, not in respiratory distress. SKIN: Warm and dry. No generalized rash, no ecchymoses and no evidence of embolic lesions. HEAD: Atraumatic. Normocephalic. No temporal wasting, or tenderness. EYES: [place] conjunctiva. No petechia or hemorrhage. No scleral icterus. No injection or drainage. EARS, NOSE AND THROAT: Nose without bleeding or purulent nasal discharge. No sinus tenderness. Mucous membranes pink and moist. No oral lesions noted. NECK: Trachea midline. Supple and not tender, no meningeal signs CARDIOVASCULAR: Regular rate and rhythm. No murmurs, rubs or gallops heard RESPIRATORY: Clear to auscultation. Breath sounds equal bilaterally. No rales , wheezing or rhonchi. Decreased breath sounds at the bases ABDOMEN: Soft, obese, non-tender, nondistended. Bowel sounds present and normoactive. No guarding. No rebound. No organomegaly. EXTREMITIES: No clubbing, cyanosis. Has bilateral pedal edema. No calf tenderness. Well perfused and warm. : Vega in place, with purulent fluid setting at the bottom of the bag NEUROLOGICAL: Awake and alert. Cranial nerves grossly intact. Motor grossly within normal limits. PSYCHIATRIC: Normal affect, calm and cooperative. 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
[2017-07-23] MEDS ORDERED: DO NOT ADM ANY ANTICOAGULANT DRUGS PRN (14:30)
--- NOTE | 2017-07-23 14:36 | HHI.PR ---
Subjective Remarks Follow up for UTI and GPC bacteremia. Patient is currently doing well. She underwent cystoscopy, stone extraction and stent placement by Urology today. No fever, chills. Objective Vitals Vital Signs Date Time Temp Pulse Resp B/P (MAP) Pulse Ox O2 Delivery O2 Flow Rate FiO2 07/23/17 12:45 72 11 116/67 (83) 95 07/23/17 12:34 98.4 76 18 128/66 (86) 92 Nasal Cannula 2 07/23/17 07:38 97.7 65 12 130/62 (84) 90 07/23/17 04:00 98.5 68 16 125/56 (79) 94 07/23/17 01:00 99.1 75 20 140/78 (98) 95 07/22/17 20:00 98.3 73 18 128/68 (88) 95 07/22/17 16:00 98.7 67 18 121/58 (79) 91 I/O 07/22/17 07/22/17 07/22/17 07/23/17 07/23/17 07/23/17 07:00 15:00 23:00 07:00 15:00 23:00 Intake Total 740 ml 100 ml Balance 740 ml 100 ml Intake Oral 240 ml IV Total 500 ml 100 ml # Voids 3 3 3 # Bowel Movements 0 1 1 Result Diagram: 07/21/17 0648 07/21/17 0648 Imaging Last Impressions Lower Extremity Ultrasound 07/21/17 0000 Signed Impressions: Service Date/Time: Friday, July 21, 2017 08:01 - CONCLUSION: Negative exam. No sonographic or Doppler findings of deep venous thrombosis. Lai Jones MD Abdomen/Pelvis CT 07/21/17 0000 Signed Impressions: Service Date/Time: July 06:00 - CONCLUSION: 1. Proximal right ureteral calculus with moderate right hydronephrosis. 2. No increase in the size of the left staghorn calculus with no obstruction and atrophic change. 3. Stable soft tissue area in the right side the pelvis with calcification. Terrence Fierro MD Head CT 07/20/17 0000 Signed Impressions: Service Date/Time: Thursday, July 20, 2017 15:26 - CONCLUSION: 1. Stable evaluation of the brain. 2. No evidence of acute infarct, hemorrhage, mass or edema. Bear Middleton MD Chest X-Ray 07/20/17 0000 Signed Impressions: Service Date/Time: Thursday, July 20, 2017 15:07 - CONCLUSION: 1. Cardiomegaly with mild positive fluid balance. 2. Bibasilar patchy airspace disease, likely atelectasis. Apollo Montague MD Objective Remarks GENERAL: Alert, NAD. SKIN: Warm and dry. HEAD: Normocephalic. EYES: No scleral icterus. No injection or drainage. NECK: Supple, trachea midline. No JVD or lymphadenopathy. CARDIOVASCULAR: Regular rate and rhythm without murmurs, gallops, or rubs. RESPIRATORY: Breath sounds equal bilaterally. No accessory muscle use. GASTROINTESTINAL: Abdomen soft, non-tender, nondistended. MUSCULOSKELETAL: No cyanosis, or edema. BACK: Nontender without obvious deformity. No CVA tenderness. Procedures 07/23/2017 Urology Cystoscopy, extraction of small bladder calculus, right retrograde pyelogram and right ureteral stent placement A/P Problem List: (1) UTI (urinary tract infection) ICD Code: N39.0 - Urinary tract infection, site not specified Status: Acute (2) Hypothyroidism ICD Code: E03.9 - Hypothyroidism, unspecified Assessment and Plan Ms. Mcfarlane is a 77 year old female with a previous history of ESBL UTI who was admitted to the hospital from [facility] due to altered mental status. Patient overtly confused, decreased responsiveness, slurred speech, with a low BP. She has been on Macrobid recently. - Urinary tract infection - Currently on Ertapenem. WBC 22.9 --> 12.4. - ID following, changed Ertapenem to Meropenem. - Blood cx shows GPC. In the afternoon blood culture shows coag-negative staph. - Patient does have orthopedic hardware. - Continue IV Vancomycin for now. Discussed with ID. - Renal stone - Hydronephrosis - s/p Cystoscopy, extraction of small bladder calculus, right retrograde pyelogram and right ureteral stent placement - Hypothyroidism - Continue Levothyroxine 150mcg Qday. - Hyperlipidemia - Continue Pravastatin 40mg QHS. - Insomnia - continue Ambien but reduced dose to 5mg QHS. DNR. Lovenox 30mg QHS. AhEdgardo castillo DO Jul 23, 2017 14:36
--- NOTE | 2017-07-23 14:48 | PD.OP ---
Operative Report Date of Surgery: Jul 23, 2017 Preoperative Diagnosis: (1) Ureteral calculus, right Postoperative Diagnosis: (1) Ureteral calculus, right Procedure: Cystoscopy, extraction of small bladder calculus, right retrograde pyelogram and right ureteral stent placement Anesthesia: General Surgeon: Tam Munguia Wire Insulator(s): None Operation and Findings: Indication for procedure: Case of a pleasant 77-year-old female with history recurrent nephrolithiasis who presents now with obstructing 16mm right proximal ureteral calculus. Presents for cystoscopy, right retrograde pyelogram and right ureteral stent placement. Operative procedure in detail: Patient was brought to the operating room suite and placed supine on the OR table. She was then placed under general anesthesia. She was then repositioned in the dorsolithotomy position and prepped and draped in normal sterile fashion. After appropriate timeout was undertaken I proceeded with cystoscopic evaluation utilizing the rigid cystoscope with the 20 Irish sheath and 30 lens. Both right and left ureteral orifice these were in correct anatomic position. There was clear reflux of urine noted on the left and there was no reflux on the right. I then proceeded to pass a sensor 0.035 wire several centimeters up the patient's right ureter. A 6 Irish open-ended ureteral catheter was then advanced over the wire approximately 4 cm from the ureteral orifice. The wire was withdrawn and a right retrograde pyelogram study was performed. The patient was noted to have an obstructing right proximal ureteral stone. I was able to advance the wire back through the open-end ureteral catheter beyond the stone and into the right renal pelvis. With the wire in place the open-ended catheter was exchanged for a 6 Irish 24 cm middle or intermediate school principal double-J stent. The stent was placed in the both cystoscopic and fluoroscopic guidance without difficulty. Once the stent was in proper position the trailing string was removed along with the guidewire. The patient also was noted to have an approximately 1 cm stone within the bladder and this was extracted endoscopically. A 16 Irish 10 cc Vega catheter was placed and connected to gravity drainage. The patient tolerated the procedures without complications and was transferred to the PACU in satisfactory condition. Tam Munguia MD Jul 23, 2017 14:48
[2017-07-23] MEDS: ENOXAPARIN SODIUM 30 MG/0.3 ML SYRINGE SQ SCH (14:50)
[2017-07-23 16:00] VITALS: BP 128/62; PULSE 65; RESP 18; TEMP 98.6; O2SAT 98
[2017-07-23 18:29] LABS: BACTERIA, URINE MANY /hpf; BLOOD, URINE MOD (NEG); GLUCOSE,URINE NEG (NEG); HYALINE CAST, URINE 5 /lpf (RARE); KETONE, URINE NEG (NEG); MUCUS URINE FEW /lpf (OCC); NITRITE,URINE NEG (NEG); SQUAMOUS EPITHELIAL CELL URINE 1 /hpf (0-5); TRANSITIONAL EPI CELLS, URINE <1 /hpf; URINE COLOR YELLOW (YELLW/STRAW)
[2017-07-23 18:36] LABS: COMMENT (UR) CATH-CULTURE IND; CULTURE IF INDICATED CATH CULTURE IND
[2017-07-23 20:00] VITALS: BP 129/77; PULSE 66; RESP 20; TEMP 97.7; O2SAT 97
[2017-07-23] MEDS: ZOLPIDEM TARTRATE 5 MG TAB PO PRN (21:29)
[2017-07-23] MEDS: PRAVASTATIN SOD 40 MG TAB PO SCH (21:29)
[2017-07-23] MEDS: ACETAMINOPHEN/HYDROcodone 325 MG/10 MG TAB PO PRN (21:29)
[2017-07-23 21:40] VITALS: O2SAT 98
[2017-07-24] VITALS: BP 133/70; PULSE 94; RESP 18; TEMP 98; O2SAT 97
[2017-07-24] MEDS: VANCOMYCIN INJ 1,500 MG in SODIUM CHLORID 0.9% 500 ML INJ 500 ML IV SCH ×2 (00:35→18:22)
[2017-07-24] MEDS: MEROPENEM INJ 1,000 MG in SODIUM CHLORIDE 0.9% INJ 100 ML IV SCH ×2 (03:12→13:52)
[2017-07-24 04:00] VITALS: BP 137/63; PULSE 64; RESP 20; TEMP 97.8; O2SAT 95
[2017-07-24] MEDS: DEXT 5%-NACL 0.45% 1000 ML INJ 1,000 ML IV SCH ×2 (04:51→18:22)
[2017-07-24] MEDS: LEVOTHYROXINE SODIUM 150 MCG TAB PO SCH (06:03)
[2017-07-24 08:42] VITALS: BP 122/58; PULSE 61; RESP 20; TEMP 98; O2SAT 95
[2017-07-24] MEDS: SODIUM CHLORIDE 0.9% FLUSH 10 ML FLUSH IV FLUSH SCH ×2 (09:26→21:49)
[2017-07-24] MEDS: FAMOTIDINE 20 MG TAB PO SCH ×2 (09:27→21:48)
[2017-07-24] MEDS: DOCUSATE SODIUM 100 MG CAP PO SCH ×2 (09:27→21:48)
[2017-07-24] MEDS: DULoxetine HCl DR 60 MG CAP PO SCH (09:28)
[2017-07-24] MEDS: BACLOFEN 10 MG TAB PO SCH ×2 (09:29→21:48)
[2017-07-24] MEDS: PREGABALIN 75 MG CAP PO SCH ×3 (09:30→21:48)
[2017-07-24 12:46] VITALS: BP_SYST 103; BP_SYST 136; BP_DIAS 64; PULSE 70; PULSE 83; RESP 18; TEMP 97.8; TEMP 98.3; O2SAT 94; O2SAT 97
[2017-07-24] MEDS: ACETAMINOPHEN/HYDROcodone 325 MG/10 MG TAB PO PRN ×2 (13:49→21:48)
--- NOTE | 2017-07-24 15:25 | HHI.PR ---
Subjective Remarks Follow up for UTI and GPC bacteremia. Patient is doing well. No acute concerns. Inquires about going to rehab. Objective Vitals Vital Signs Date Time Temp Pulse Resp B/P (MAP) Pulse Ox O2 Delivery O2 Flow Rate FiO2 07/24/17 12:46 97.8 70 18 136/64 (88) 97 07/24/17 08:42 98.0 61 20 122/58 (79) 95 07/24/17 04:00 97.8 64 20 137/63 (87) 95 07/24/17 00:00 98.0 94 18 133/70 (91) 97 07/23/17 21:40 98 Nasal Cannula 2.00 07/23/17 20:00 97.7 66 20 129/77 (94) 97 07/23/17 16:00 98.6 65 18 128/62 (84) 98 I/O 07/23/17 07/23/17 07/23/17 07/24/17 07/24/17 07/24/17 07:00 15:00 23:00 07:00 15:00 23:00 Intake Total 120 ml 673 ml 1600 ml 480 ml Output Total 5 ml 900 ml Balance 120 ml 668 ml 700 ml 480 ml Intake Oral 120 ml 480 ml IV Total 273 ml 1600 ml Other 400 ml Output Urine Total 900 ml Estimated Blood Loss 5 ml # Voids 3 1 3 # Bowel Movements 1 1 3 1 Result Diagram: 07/21/1748 07/23/172022 Objective Remarks GENERAL: Alert, NAD. SKIN: Warm and dry. HEAD: Normocephalic. EYES: No scleral icterus. No injection or drainage. NECK: Supple, trachea midline. No JVD or lymphadenopathy. CARDIOVASCULAR: Regular rate and rhythm without murmurs, gallops, or rubs. RESPIRATORY: Breath sounds equal bilaterally. No accessory muscle use. GASTROINTESTINAL: Abdomen soft, non-tender, nondistended. MUSCULOSKELETAL: No cyanosis, or edema. BACK: Nontender without obvious deformity. No CVA tenderness. Procedures 07/23/2017 Urology Cystoscopy, extraction of small bladder calculus, right retrograde pyelogram and right ureteral stent placement A/P Problem List: (1) UTI (urinary tract infection) ICD Code: N39.0 - Urinary tract infection, site not specified Status: Acute (2) Hypothyroidism ICD Code: E03.9 - Hypothyroidism, unspecified Assessment and Plan Ms. Mcfarlane is a 77 year old female with a previous history of ESBL UTI who was admitted to the hospital from [facility] due to altered mental status. Patient overtly confused, decreased responsiveness, slurred speech, with a low BP. She has been on Macrobid recently. - Urinary tract infection - Currently on Ertapenem. WBC 22.9 --> 12.4. - ID following, changed Ertapenem to Meropenem. - Blood cx shows GPC. In the afternoon blood culture shows coag-negative staph. - Repeat cx from 07/23/2017 shows no growth so far. If it remains negative, we can likely discharge patient to SNF - Patient does have orthopedic hardware. - Continue IV Vancomycin for now. Will d/c Vanco if blood cx from 07/23/2017 negative X 2 days. - Renal stone - Hydronephrosis - s/p Cystoscopy, extraction of small bladder calculus, right retrograde pyelogram and right ureteral stent placement - Hypothyroidism - Continue Levothyroxine 150mcg Qday. - Hyperlipidemia - Continue Pravastatin 40mg QHS. - Insomnia - continue Ambien but reduced dose to 5mg QHS. DNR. Lovenox 30mg QHS. Edgardo Sands DO Jul 24, 2017 15:25
[2017-07-24 16:14] VITALS: BP 136/65; PULSE 69; RESP 18; TEMP 98.2; O2SAT 96
[2017-07-24] MEDS ORDERED: PHARMACY ORDERED LAB ONE (17:45)
[2017-07-24] MEDS: ENOXAPARIN SODIUM 30 MG/0.3 ML SYRINGE SQ SCH (18:24)
[2017-07-24 20:00] VITALS: BP 134/64; PULSE 62; RESP 18; TEMP 98.4; O2SAT 96
[2017-07-24] MEDS: PRAVASTATIN SOD 40 MG TAB PO SCH (21:48)
[2017-07-24] MEDS: ZOLPIDEM TARTRATE 5 MG TAB PO PRN (21:48)
[2017-07-25] VITALS (7 sets, daily range): BP systolic 121–170; BP diastolic 63–81; PULSE 60–63; RESP 17–60; TEMP 97.5–98.6; O2SAT 93–98
[2017-07-25] MEDS: MEROPENEM INJ 1,000 MG in SODIUM CHLORIDE 0.9% INJ 100 ML IV SCH ×2 (02:08→14:27)
[2017-07-25] MEDS: LEVOTHYROXINE SODIUM 150 MCG TAB PO SCH (06:07)
[2017-07-25] MEDS: ACETAMINOPHEN/HYDROcodone 325 MG/10 MG TAB PO PRN ×3 (06:07→21:59)
[2017-07-25] MEDS: PREGABALIN 75 MG CAP PO SCH ×3 (10:26→21:58)
[2017-07-25] MEDS: DOCUSATE SODIUM 100 MG CAP PO SCH ×2 (10:26→21:58)
[2017-07-25] MEDS: FAMOTIDINE 20 MG TAB PO SCH ×2 (10:27→21:59)
[2017-07-25] MEDS: DULoxetine HCl DR 60 MG CAP PO SCH (10:28)
[2017-07-25] MEDS: BACLOFEN 10 MG TAB PO SCH ×2 (10:30→21:59)
[2017-07-25] MEDS: SODIUM CHLORIDE 0.9% FLUSH 10 ML FLUSH IV FLUSH SCH ×2 (10:30→21:00)
[2017-07-25] MEDS ORDERED: PHARMACY ORDERED LAB ONE (11:45)
[2017-07-25] MEDS: VANCOMYCIN INJ 1,500 MG in SODIUM CHLORID 0.9% 500 ML INJ 500 ML IV SCH (12:10)
[2017-07-25] MEDS: ENOXAPARIN SODIUM 30 MG/0.3 ML SYRINGE SQ SCH (17:56)
--- NOTE | 2017-07-25 20:35 | HHI.PR ---
Subjective Remarks Follow up for UTI and GPC bacteremia. Patient is doing well. no fever, chills. Objective Vitals Vital Signs Date Time Temp Pulse Resp B/P (MAP) Pulse Ox O2 Delivery O2 Flow Rate FiO2 07/25/17 18:09 98 21 07/25/17 15:56 98.1 62 20 170/81 (110) 98 07/25/17 12:42 98.1 60 60 121/63 (82) 96 07/25/17 09:10 95 07/25/17 08:20 98.1 60 20 140/69 (92) 95 07/25/17 04:43 97.5 63 17 164/78 (106) 95 07/25/17 00:19 98.6 63 17 133/65 (87) 93 I/O 07/24/17 07/24/17 07/24/17 07/25/17 07/25/17 07/25/17 07:00 15:00 23:00 07:00 15:00 23:00 Intake Total 1600 ml 480 ml 515 ml 1099 ml 975 ml Output Total 900 ml Balance 700 ml 480 ml 515 ml 1099 ml 975 ml Intake Oral 480 ml 120 ml IV Total 1600 ml 515 ml 979 ml 975 ml Output Urine Total 900 ml # Voids 3 2 # Bowel Movements 3 1 Result Diagram: 07/21/17 0648 07/23/172022 Objective Remarks GENERAL: Alert, NAD. SKIN: Warm and dry. HEAD: Normocephalic. EYES: No scleral icterus. No injection or drainage. NECK: Supple, trachea midline. No JVD or lymphadenopathy. CARDIOVASCULAR: Regular rate and rhythm without murmurs, gallops, or rubs. RESPIRATORY: Breath sounds equal bilaterally. No accessory muscle use. GASTROINTESTINAL: Abdomen soft, non-tender, nondistended. MUSCULOSKELETAL: No cyanosis, or edema. BACK: Nontender without obvious deformity. No CVA tenderness. Procedures 07/23/2017 Urology Cystoscopy, extraction of small bladder calculus, right retrograde pyelogram and right ureteral stent placement A/P Problem List: (1) UTI (urinary tract infection) ICD Code: N39.0 - Urinary tract infection, site not specified Status: Acute (2) Hypothyroidism ICD Code: E03.9 - Hypothyroidism, unspecified Assessment and Plan Ms. Mcfarlane is a 77 year old female with a previous history of ESBL UTI who was admitted to the hospital from [facility] due to altered mental status. Patient overtly confused, decreased responsiveness, slurred speech, with a low BP. She has been on Macrobid recently. - Urinary tract infection - Currently on Ertapenem. WBC 22.9 --> 12.4. - ID following, changed Ertapenem to Meropenem. - Blood cx shows GPC. In the afternoon blood culture shows coag-negative staph. - Repeat cx from 07/23/2017 shows no growth so far. If it remains negative, we can likely discharge patient to SNF - Patient does have orthopedic hardware. - D/C Vancomycin. Coag negative staph positive culture likely reflects contamination during blood draw. - Renal stone - Hydronephrosis - s/p Cystoscopy, extraction of small bladder calculus, right retrograde pyelogram and right ureteral stent placement - Hypothyroidism - Continue Levothyroxine 150mcg Qday. - Hyperlipidemia - Continue Pravastatin 40mg QHS. - Insomnia - continue Ambien but reduced dose to 5mg QHS. DNR. Lovenox 30mg QHS. Edgardo Sands DO Jul 25, 2017 20:35
[2017-07-25] MEDS: PRAVASTATIN SOD 40 MG TAB PO SCH (21:58)
[2017-07-25] MEDS: ZOLPIDEM TARTRATE 5 MG TAB PO PRN (21:59)
[2017-07-26 00:30] VITALS: BP 160/72; PULSE 67; RESP 17; TEMP 98.1; O2SAT 94
[2017-07-26] MEDS: MEROPENEM INJ 1,000 MG in SODIUM CHLORIDE 0.9% INJ 100 ML IV SCH ×2 (01:14→13:45)
[2017-07-26 04:58] VITALS: BP 144/67; PULSE 60; RESP 17; TEMP 98; O2SAT 94
[2017-07-26] MEDS: LEVOTHYROXINE SODIUM 150 MCG TAB PO SCH (06:07)
[2017-07-26 08:20] VITALS: BP 128/72; PULSE 68; RESP 16; TEMP 97.8; O2SAT 94
[2017-07-26] MEDS: PREGABALIN 75 MG CAP PO SCH ×3 (09:44→20:26)
[2017-07-26] MEDS: DOCUSATE SODIUM 100 MG CAP PO SCH ×2 (09:44→20:25)
[2017-07-26] MEDS: DULoxetine HCl DR 60 MG CAP PO SCH (09:45)
[2017-07-26] MEDS: FAMOTIDINE 20 MG TAB PO SCH ×2 (09:45→20:26)
[2017-07-26] MEDS: BACLOFEN 10 MG TAB PO SCH ×2 (09:45→20:25)
[2017-07-26] MEDS: SODIUM CHLORIDE 0.9% FLUSH 10 ML FLUSH IV FLUSH SCH ×2 (09:47→20:25)
[2017-07-26] MEDS: ACETAMINOPHEN/HYDROcodone 325 MG/10 MG TAB PO PRN ×2 (09:50→18:09)
[2017-07-26] MEDS ORDERED: Vancomycin Consult Pharmacy 1 EA OTHER SCH (10:30)
[2017-07-26] MEDS ORDERED: VANCOMYCIN INJ 1,000 MG in SODIUM CHLOR 0.9% 250 ML INJ 250 ML IV ONE (11:00)
--- NOTE | 2017-07-26 11:18 | HHI.IDPN ---
Subjective Subjective Remarks Patient is a 77-year-old female, resides in the retirement, brought into the hospital for lethargy. She apparently has been sleeping more than her usual. Her urine was also noted to be dark with some odor. She has had problem with recurrent UTI, and has known bilateral kidney stones. She sees Dr. Munguia. The last note I saw in [facility] was from June of this year. She apparently has been passing small stones. The last CT scan in [facility] was from January and there was the presence of the bilateral kidney stones, but no hydronephrosis. Per urology note she is supposed to be on chronic antibiotic suppression with Macrobid. On presentation patient has been afebrile. Her WBC was initially elevated at 22,000, and that has improved. Her urinalysis did show evidence of pyuria. She denies any respiratory complaint. She has not had any nausea or vomiting or any abdominal pain. There was a prior urine culture from last year that had Pseudomonas and ESBL positive organism. Patient currently is awake and alert. As not look toxic appearing. Highest temperature has been 99. Infectious disease consultation has been requested to evaluate the patient. Notes reviewed Temps ok C/O pain both feet - states she has neuropathy Had cysto and stent placement BC with 2 diff Coag Neg Staph UC GNR and Enterococcus Creat better Antibiotics Current Medications Meropenem Vancomycin Medications (Trade) Dose Ordered Sig/William Route Start Time Stop Time Status Last Admin (NS Flush) 2 ml UNSCH PRN IV FLUSH 07/20/17 20:00 (NS Flush) 2 ml BID IV FLUSH 07/20/17 21:00 07/26/17 09:47 (Narcan Inj) 0.4 mg UNSCH PRN IV PUSH 07/20/17 20:00 (Lioresal) 10 mg BID PO 07/21/17 09:00 07/26/17 09:45 (Colace) 100 mg BID PO 07/21/17 09:00 07/26/17 09:44 (Cassiaalta ) 60 mg DAILY PO 07/21/17 09:00 07/26/17 09:45 (Pepcid) 10 mg BID PO 07/21/17 09:00 07/26/17 09:45 ([place] 10-325 Mg) 1 tab Q8H PRN PO 07/20/17 23:15 07/26/17 09:50 (Synthroid) 150 mcg DAILY@0600 PO 07/21/17 06:00 07/26/17 06:07 (Pravachol) 40 mg HS PO 07/21/17 21:00 07/25/17 21:58 (Lyrica) 150 mg BID PO 07/21/17 09:00 07/26/17 09:44 (Lyrica) 300 mg DAILY@1400 PO 07/21/17 14:00 07/25/17 14:28 Patient Own Medication PT OWN MED: (Topiram... BID PO 07/21/17 09:00 Future Hold Meropenem 1000 mg/ Sodium Chloride 100 ml @ 200 mls/hr Q12H IV 07/21/17 14:00 07/26/17 01:14 (Ambien) 5 mg HS PRN PO 07/21/17 21:00 07/25/17 21:59 (Lovenox Inj) 30 mg Q24H SQ 07/21/17 18:00 07/25/17 17:56 Vancomycin HCl 1000 mg/Sodium Chloride 250 ml @ 250 mls/hr ONCE ONCE IV 07/26/17 11:00 07/26/17 11:59 Pharmacy Profile Note 0 ml @ 0 mls/hr UNSCH OTHER 07/26/17 10:30 Lines PIV Past Medical History Neuropathy Chronic pain CAD s/p stents Sleep apnea- was on cpap at home previously, but now not on it because machine is not working and [place] did not arrange for new doc or equipment yet Kidney stones Hypothyroidism Past Surgical History Cardiac catheter and Stenting Cataract Kidney stone sx Hip sx Back sx Knee sx 2 Bladder sx Allergies: Coded Allergies: Sulfa (Sulfonamide Antibiotics) (Unverified Allergy, Severe, 07/15/17) codeine (Unverified Allergy, Severe, 07/15/17) morphine (Unverified Allergy, Severe, 07/15/17) amoxicillin (Unverified Allergy, Unknown, UNKNOWN, 07/15/17) *MDRO Multi-Drug Resistant Organism (Verified Adverse Reaction, Unknown, 07/15/17) MRSA PCR screen (nares) POSITIVE - 04/13/16 ESBL+E.Coli-(urine & blood-04/13/16) & (urine-06/16/16);MDR-Pseudomonas (urine-06/16/16) Objective . Vital Signs Date Time Temp Pulse Resp B/P (MAP) Pulse Ox O2 Delivery O2 Flow Rate FiO2 07/26/17 08:20 97.8 68 16 128/72 (90) 94 07/26/17 04:58 98.0 60 17 144/67 (92) 94 07/26/17 00:30 98.1 67 17 160/72 (101) 94 07/25/17 18:09 98 21 07/25/17 15:56 98.1 62 20 170/81 (110) 98 07/25/17 12:42 98.1 60 60 121/63 (82) 96 . Microbiology Date/Time Source Procedure Growth Status 07/23/17 20:23 Blood Peripheral Aerobic Blood Culture - Preliminary NO GROWTH IN 3 DAYS Resulted 07/23/17 20:23 Blood Peripheral Anaerobic Blood Culture - Preliminary NO GROWTH IN 3 DAYS Resulted 07/23/17 12:05 Fluid Other Fungal Smear - Final NO FUNGAL ELEMENTS SEEN. Resulted 07/23/17 12:05 Fluid Other Fungal Culture Pending Resulted 07/23/17 12:05 Fluid Other Gram Stain - Final Resulted 07/23/17 12:05 Body Fluid Culture - Preliminary Enterococcus Faecalis Gram Negative Ezekiel Resulted 07/23/17 15:10 Urine Clean Catch Urine Culture - Final Enterococcus Faecalis Gram Negative Ezekiel Complete Imaging Lower Extremity Ultrasound 07/21/17 0000 Signed Impressions: Service Date/Time: Friday, July 21, 2017 08:01 - CONCLUSION: Negative exam. No sonographic or Doppler findings of deep venous thrombosis. Lai Jones MD Abdomen/Pelvis CT 07/21/17 0000 Signed Impressions: Service Date/Time: July 06:00 - CONCLUSION: 1. Proximal right ureteral calculus with moderate right hydronephrosis. 2. No increase in the size of the left staghorn calculus with no obstruction and atrophic change. 3. Stable soft tissue area in the right side the pelvis with calcification. Terrence Fierro MD Head CT 07/20/17 0000 Signed Impressions: Service Date/Time: Thursday, July 20, 2017 15:26 - CONCLUSION: 1. Stable evaluation of the brain. 2. No evidence of acute infarct, hemorrhage, mass or edema. Bear Middleton MD Chest X-Ray 07/20/17 0000 Signed Impressions: Service Date/Time: Thursday, July 20, 2017 15:07 - CONCLUSION: 1. Cardiomegaly with mild positive fluid balance. 2. Bibasilar patchy airspace disease, likely atelectasis. Apollo Montague MD Physical Exam GENERAL: awake and alert, not in respiratory distress. SKIN: Warm and dry. No generalized rash, no ecchymoses and no evidence of embolic lesions. HEAD: Atraumatic. Normocephalic. No temporal wasting, or tenderness. EYES: [place] conjunctiva. No petechia or hemorrhage. No scleral icterus. No injection or drainage. EARS, NOSE AND THROAT: Nose without bleeding or purulent nasal discharge. No sinus tenderness. Mucous membranes pink and moist. No oral lesions noted. NECK: Trachea midline. Supple and not tender, no meningeal signs CARDIOVASCULAR: Regular rate and rhythm. No murmurs, rubs or gallops heard RESPIRATORY: Clear to auscultation. Breath sounds equal bilaterally. No rales , wheezing or rhonchi. Decreased breath sounds at the bases ABDOMEN: Soft, obese, non-tender, nondistended. Bowel sounds present and normoactive. No guarding. No rebound. No organomegaly. EXTREMITIES: No clubbing, cyanosis. Has bilateral pedal edema. No calf tenderness. : Vega in place, with purulent fluid setting at the bottom of the bag NEUROLOGICAL: Awake and alert. Cranial nerves grossly intact. Motor grossly within normal limits. PSYCHIATRIC: Normal affect, calm and cooperative. LINE: No evidence of infection Assessment & Plan Remarks IMPRESSION Known bilateral kidney stones, now with obstruction Hx recurrent UTI, now with UTI again, has hydro L - last CT January no obstruction, (+) luis stones Hx MDR GNR organisms BC with Coag Neg Staph, ?significance, drawn at same time Obesity Hx sleep apnea RECOMMENDATION Continue Meropenem Continue IV Vancomycin Follow C/S and adjust Abx Follow new C/S and adjust Abx Monitor progress Explained plan to the patient Caitlyn Lynn MD Jul 26, 2017 11:17
[2017-07-26 12:15] VITALS: BP 139/65; PULSE 74; RESP 17; TEMP 97.8; O2SAT 98
--- NOTE | 2017-07-26 12:58 | HHI.PR ---
Subjective Remarks Follow up for UTI and GPC bacteremia. Patient is currently doing well. No fever , chills. Objective Vitals Vital Signs Date Time Temp Pulse Resp B/P (MAP) Pulse Ox O2 Delivery O2 Flow Rate FiO2 07/26/17 08:20 97.8 68 16 128/72 (90) 94 07/26/17 04:58 98.0 60 17 144/67 (92) 94 07/26/17 00:30 98.1 67 17 160/72 (101) 94 07/25/17 18:09 98 21 07/25/17 15:56 98.1 62 20 170/81 (110) 98 I/O 07/25/17 07/25/17 07/25/17 07/26/17 07/26/17 07/26/17 07:00 15:00 23:00 07:00 15:00 23:00 Intake Total 1099 ml 975 ml 340 ml Balance 1099 ml 975 ml 340 ml Intake Oral 120 ml 240 ml IV Total 979 ml 975 ml 100 ml # Voids 2 3 Result Diagram: 07/23/172022 Objective Remarks GENERAL: Alert, NAD. SKIN: Warm and dry. HEAD: Normocephalic. EYES: No scleral icterus. No injection or drainage. NECK: Supple, trachea midline. No JVD or lymphadenopathy. CARDIOVASCULAR: Regular rate and rhythm without murmurs, gallops, or rubs. RESPIRATORY: Breath sounds equal bilaterally. No accessory muscle use. GASTROINTESTINAL: Abdomen soft, non-tender, nondistended. MUSCULOSKELETAL: No cyanosis, or edema. BACK: Nontender without obvious deformity. No CVA tenderness. Procedures 07/23/2017 Urology Cystoscopy, extraction of small bladder calculus, right retrograde pyelogram and right ureteral stent placement A/P Problem List: (1) UTI (urinary tract infection) ICD Code: N39.0 - Urinary tract infection, site not specified Status: Acute (2) Hypothyroidism ICD Code: E03.9 - Hypothyroidism, unspecified Assessment and Plan Ms. Mcfarlane is a 77 year old female with a previous history of ESBL UTI who was admitted to the hospital from [facility] due to altered mental status. Patient overtly confused, decreased responsiveness, slurred speech, with a low BP. She has been on Macrobid recently. - Urinary tract infection - Urine cx shows Enterococcus and GNR. - WBC 22.9 --> 12.4. - ID following, changed Ertapenem to Meropenem. - Blood cx shows GPC. In the afternoon blood culture shows coag-negative staph. - Repeat cx from 07/23/2017 shows no growth so far. If it remains negative, we can likely discharge patient to SNF - Patient does have orthopedic hardware. - Coag negative staph positive culture likely reflects contamination during blood draw. ID following. Patient is currently on IV Vancomycin as well. - Renal stone - Hydronephrosis - s/p Cystoscopy, extraction of small bladder calculus, right retrograde pyelogram and right ureteral stent placement - Hypothyroidism - Continue Levothyroxine 150mcg Qday. - Hyperlipidemia - Continue Pravastatin 40mg QHS. - Insomnia - continue Ambien but reduced dose to 5mg QHS. DNR. Lovenox 30mg QHS. Edgardo Sands DO Jul 26, 2017 12:58
[2017-07-26] MEDS ORDERED: VANCOMYCIN 500 MG/NS 100 ML IV ONE ×2 (14:00)
[2017-07-26 16:25] VITALS: BP 151/72; PULSE 64; RESP 17; TEMP 98; O2SAT 97
[2017-07-26] MEDS: ENOXAPARIN SODIUM 30 MG/0.3 ML SYRINGE SQ SCH (18:11)
[2017-07-26] MEDS: PRAVASTATIN SOD 40 MG TAB PO SCH (20:26)
[2017-07-26 20:30] VITALS: BP 140/70; PULSE 65; RESP 17; TEMP 98; O2SAT 93
[2017-07-26] MEDS: ZOLPIDEM TARTRATE 5 MG TAB PO PRN (20:33)
[2017-07-27] VITALS (8 sets, daily range): BP systolic 134–190; BP diastolic 67–83; PULSE 55–72; RESP 16–18; TEMP 96.5–98.1; O2SAT 90–96
[2017-07-27] MEDS: MEROPENEM INJ 1,000 MG in SODIUM CHLORIDE 0.9% INJ 100 ML IV SCH (01:15)
[2017-07-27] MEDS: ACETAMINOPHEN/HYDROcodone 325 MG/10 MG TAB PO PRN ×3 (03:24→20:11)
[2017-07-27] MEDS: LEVOTHYROXINE SODIUM 150 MCG TAB PO SCH (05:09)
[2017-07-27] MEDS ORDERED: VANCOMYCIN 1,500 MG/NS 500 ML IV SCH ×2 (06:00)
[2017-07-27] MEDS: SODIUM CHLORIDE 0.9% FLUSH 10 ML FLUSH IV FLUSH SCH ×2 (09:24→20:09)
[2017-07-27] MEDS: DOCUSATE SODIUM 100 MG CAP PO SCH ×2 (09:25→20:10)
[2017-07-27] MEDS: DULoxetine HCl DR 60 MG CAP PO SCH (09:26)
[2017-07-27] MEDS: FAMOTIDINE 20 MG TAB PO SCH ×2 (09:26→20:10)
[2017-07-27] MEDS: BACLOFEN 10 MG TAB PO SCH ×2 (09:26→20:10)
[2017-07-27] MEDS: PREGABALIN 75 MG CAP PO SCH ×3 (09:28→20:09)
--- NOTE | 2017-07-27 11:04 | HHI.IDPN ---
Subjective Subjective Remarks Patient is a 77-year-old female, resides in the residential, brought into the hospital for lethargy. She apparently has been sleeping more than her usual. Her urine was also noted to be dark with some odor. She has had problem with recurrent UTI, and has known bilateral kidney stones. She sees Dr. Munguia. The last note I saw in [facility] was from June of this year. She apparently has been passing small stones. The last CT scan in [facility] was from January and there was the presence of the bilateral kidney stones, but no hydronephrosis. Per urology note she is supposed to be on chronic antibiotic suppression with Macrobid. On presentation patient has been afebrile. Her WBC was initially elevated at 22,000, and that has improved. Her urinalysis did show evidence of pyuria. She denies any respiratory complaint. She has not had any nausea or vomiting or any abdominal pain. There was a prior urine culture from last year that had Pseudomonas and ESBL positive organism. Patient currently is awake and alert. As not look toxic appearing. Highest temperature has been 99. Infectious disease consultation has been requested to evaluate the patient. Notes reviewed Temps ok C/O pain both feet - states she has neuropathy Had cysto and stent placement 07/23 with 2 diff Coag Neg Staph UC GNR and Enterococcus Creat better Antibiotics Current Medications Meropenem Vancomycin Medications (Trade) Dose Ordered Sig/William Route Start Time Stop Time Status Last Admin (NS Flush) 2 ml UNSCH PRN IV FLUSH 07/20/17 20:00 (NS Flush) 2 ml BID IV FLUSH 07/20/17 21:00 07/27/17 09:24 (Narcan Inj) 0.4 mg UNSCH PRN IV PUSH 07/20/17 20:00 (Lioresal) 10 mg BID PO 07/21/17 09:00 07/27/17 09:26 (Colace) 100 mg BID PO 07/21/17 09:00 07/27/17 09:25 (Ghassanmbalta ) 60 mg DAILY PO 07/21/17 09:00 07/27/17 09:26 (Pepcid) 10 mg BID PO 07/21/17 09:00 07/27/17 09:26 ([place] 10-325 Mg) 1 tab Q8H PRN PO 07/20/17 23:15 07/27/17 03:24 (Synthroid) 150 mcg DAILY@0600 PO 07/21/17 06:00 07/27/17 05:09 (Pravachol) 40 mg HS PO 07/21/17 21:00 07/26/17 20:26 (Lyrica) 150 mg BID PO 07/21/17 09:00 07/27/17 09:28 (Lyrica) 300 mg DAILY@1400 PO 07/21/17 14:00 07/26/17 13:53 Patient Own Medication PT OWN MED: (Topiram... BID PO 07/21/17 09:00 Future Hold Meropenem 1000 mg/ Sodium Chloride 100 ml @ 200 mls/hr Q12H IV 07/21/17 14:00 07/27/17 01:15 (Ambien) 5 mg HS PRN PO 07/21/17 21:00 07/26/17 20:33 (Lovenox Inj) 30 mg Q24H SQ 07/21/17 18:00 07/26/17 18:11 Pharmacy Profile Note 0 ml @ 0 mls/hr UNSCH OTHER 07/26/17 10:30 Miscellaneous Information SPECIFIC LAB TO BE JOSE... ONCE ONCE .XX 07/29/17 11:45 07/29/17 11:46 Vancomycin HCl 1500 mg/Sodium Chloride 515 ml @ 257.5 mls/ hr Q18H IV 07/27/17 06:00 07/27/17 05:09 Lines PIV Past Medical History Neuropathy Chronic pain CAD s/p stents Sleep apnea- was on cpap at home previously, but now not on it because machine is not working and [place] did not arrange for new doc or equipment yet Kidney stones Hypothyroidism Past Surgical History Cardiac catheter and Stenting Cataract Kidney stone sx Hip sx Back sx Knee sx 2 Bladder sx Allergies: Coded Allergies: Sulfa (Sulfonamide Antibiotics) (Unverified Allergy, Severe, 07/15/17) codeine (Unverified Allergy, Severe, 07/15/17) morphine (Unverified Allergy, Severe, 07/15/17) amoxicillin (Unverified Allergy, Unknown, UNKNOWN, 07/15/17) *MDRO Multi-Drug Resistant Organism (Verified Adverse Reaction, Unknown, 07/15/17) MRSA PCR screen (nares) POSITIVE - 04/13/16 ESBL+E.Coli-(urine & blood-04/13/16) & (urine-06/16/16);MDR-Pseudomonas (urine-06/16/16) Objective . Vital Signs Date Time Temp Pulse Resp B/P (MAP) Pulse Ox O2 Delivery O2 Flow Rate FiO2 07/27/17 04:00 98.1 59 17 149/67 (94) 91 07/27/17 00:00 97.3 62 17 134/69 (90) 90 07/26/17 20:30 98.0 65 17 140/70 (93) 93 07/26/17 16:25 98.0 64 17 151/72 (98) 97 07/26/17 12:15 97.8 74 17 139/65 (89) 98 07/27/17 07/27/17 07/28/17 15:00 23:00 07:00 # Voids 1 # Bowel Movements 0 Imaging Lower Extremity Ultrasound 07/21/17 0000 Signed Impressions: Service Date/Time: Friday, July 21, 2017 08:01 - CONCLUSION: Negative exam. No sonographic or Doppler findings of deep venous thrombosis. Lai Jones MD Abdomen/Pelvis CT 07/21/17 0000 Signed Impressions: Service Date/Time: July 06:00 - CONCLUSION: 1. Proximal right ureteral calculus with moderate right hydronephrosis. 2. No increase in the size of the left staghorn calculus with no obstruction and atrophic change. 3. Stable soft tissue area in the right side the pelvis with calcification. Terrence Fierro MD Head CT 07/20/17 0000 Signed Impressions: Service Date/Time: Thursday, July 20, 2017 15:26 - CONCLUSION: 1. Stable evaluation of the brain. 2. No evidence of acute infarct, hemorrhage, mass or edema. Bear Middleton MD Chest X-Ray 07/20/17 0000 Signed Impressions: Service Date/Time: Thursday, July 20, 2017 15:07 - CONCLUSION: 1. Cardiomegaly with mild positive fluid balance. 2. Bibasilar patchy airspace disease, likely atelectasis. Apollo Montague MD Physical Exam GENERAL: awake and alert, not in respiratory distress. SKIN: Warm and dry. No generalized rash, no ecchymoses and no evidence of embolic lesions. HEAD: Atraumatic. Normocephalic. No temporal wasting, or tenderness. EYES: [place] conjunctiva. No petechia or hemorrhage. No scleral icterus. No injection or drainage. EARS, NOSE AND THROAT: Nose without bleeding or purulent nasal discharge. No sinus tenderness. Mucous membranes pink and moist. No oral lesions noted. NECK: Trachea midline. Supple and not tender, no meningeal signs CARDIOVASCULAR: Regular rate and rhythm. No murmurs, rubs or gallops heard RESPIRATORY: Clear to auscultation. Breath sounds equal bilaterally. No rales , wheezing or rhonchi. Decreased breath sounds at the bases ABDOMEN: Soft, obese, non-tender, nondistended. Bowel sounds present and normoactive. No guarding. No rebound. No organomegaly. EXTREMITIES: No clubbing, cyanosis. Has bilateral pedal edema. No calf tenderness. : Vega in place, with purulent fluid setting at the bottom of the bag NEUROLOGICAL: Awake and alert. Cranial nerves grossly intact. Motor grossly within normal limits. PSYCHIATRIC: Normal affect, calm and cooperative. LINE: No evidence of infection Assessment & Plan Remarks IMPRESSION Known bilateral kidney stones, now with obstruction Hx recurrent UTI, now with UTI again, has hydro L - last CT January no obstruction, (+) luis stones Hx MDR GNR organisms BC with Coag Neg Staph, ?significance, drawn at same time Obesity Hx sleep apnea RECOMMENDATION Stop Meropenem Stop IV Vancomycin Change to Macrobid and Cipro - her infection has improved since the obstruction was relieved If stable on po Abx, D/C to SNF tomorrow and give 14 days of oral Abx Monitor progress D/W Dr Sands (HEPAS) Caitlyn Lynn MD Jul 27, 2017 11:04
--- NOTE | 2017-07-27 11:05 | HHI.PR ---
Subjective Remarks Follow up for UTI and GPC bacteremia. Afebrile. Inquires about going to SNF. Objective Vitals Vital Signs Date Time Temp Pulse Resp B/P (MAP) Pulse Ox O2 Delivery O2 Flow Rate FiO2 07/27/17 04:00 98.1 59 17 149/67 (94) 91 07/27/17 00:00 97.3 62 17 134/69 (90) 90 07/26/17 20:30 98.0 65 17 140/70 (93) 93 07/26/17 16:25 98.0 64 17 151/72 (98) 97 07/26/17 12:15 97.8 74 17 139/65 (89) 98 I/O 07/26/17 07/26/17 07/26/17 07/27/17 07/27/17 07/27/17 07:00 15:00 23:00 07:00 15:00 23:00 Intake Total 340 ml 350 ml 340 ml Balance 340 ml 350 ml 340 ml Intake Oral 240 ml 240 ml IV Total 100 ml 350 ml 100 ml # Voids 3 3 1 # Bowel Movements 0 Result Diagram: 07/23/172022 Imaging Last Impressions Lower Extremity Ultrasound 07/21/17 0000 Signed Impressions: Service Date/Time: Friday, July 21, 2017 08:01 - CONCLUSION: Negative exam. No sonographic or Doppler findings of deep venous thrombosis. Lai Jones MD Abdomen/Pelvis CT 07/21/17 0000 Signed Impressions: Service Date/Time: July 06:00 - CONCLUSION: 1. Proximal right ureteral calculus with moderate right hydronephrosis. 2. No increase in the size of the left staghorn calculus with no obstruction and atrophic change. 3. Stable soft tissue area in the right side the pelvis with calcification. Terrence Fierro MD Head CT 07/20/17 0000 Signed Impressions: Service Date/Time: Thursday, July 20, 2017 15:26 - CONCLUSION: 1. Stable evaluation of the brain. 2. No evidence of acute infarct, hemorrhage, mass or edema. Bear Middleton MD Chest X-Ray 07/20/17 0000 Signed Impressions: Service Date/Time: Thursday, July 20, 2017 15:07 - CONCLUSION: 1. Cardiomegaly with mild positive fluid balance. 2. Bibasilar patchy airspace disease, likely atelectasis. Apollo Montague MD Objective Remarks GENERAL: Alert, NAD. SKIN: Warm and dry. HEAD: Normocephalic. EYES: No scleral icterus. No injection or drainage. NECK: Supple, trachea midline. No JVD or lymphadenopathy. CARDIOVASCULAR: Regular rate and rhythm without murmurs, gallops, or rubs. RESPIRATORY: Breath sounds equal bilaterally. No accessory muscle use. GASTROINTESTINAL: Abdomen soft, non-tender, nondistended. MUSCULOSKELETAL: No cyanosis, or edema. BACK: Nontender without obvious deformity. No CVA tenderness. Procedures 07/23/2017 Urology Cystoscopy, extraction of small bladder calculus, right retrograde pyelogram and right ureteral stent placement A/P Problem List: (1) UTI (urinary tract infection) ICD Code: N39.0 - Urinary tract infection, site not specified Status: Acute (2) Hypothyroidism ICD Code: E03.9 - Hypothyroidism, unspecified Assessment and Plan Ms. Mcfarlane is a 77 year old female with a previous history of ESBL UTI who was admitted to the hospital from [facility] due to altered mental status. Patient overtly confused, decreased responsiveness, slurred speech, with a low BP. She has been on Macrobid recently. - Urinary tract infection - Urine cx shows Enterococcus and GNR. - Waiting for Micro to identify GNR. - WBC 22.9 --> 12.4. - ID following. Nitrofurantoin and Cipro on discharge. - Likely discharge on 07/28/2017. - Renal stone - Hydronephrosis - s/p Cystoscopy, extraction of small bladder calculus, right retrograde pyelogram and right ureteral stent placement - Hypothyroidism - Continue Levothyroxine 150mcg Qday. - Hyperlipidemia - Continue Pravastatin 40mg QHS. - Insomnia - continue Ambien but reduced dose to 5mg QHS. DNR. Lovenox 30mg QHS. Edgardo Sands DO Jul 27, 2017 11:05
[2017-07-27] MEDS ORDERED: BISACODYL 10 MG SUPP RECTAL PRN (11:30)
[2017-07-27] MEDS ORDERED: MAGNESIUM HYDROXIDE SUSP 30 ML CUP PO PRN (11:30)
[2017-07-27] MEDS ORDERED: LACTULOSE SYRUP 20 GM/30 ML CUP PO PRN (11:30)
[2017-07-27] MEDS ORDERED: SENNOSIDES 8.6 MG TAB PO PRN (11:30)
[2017-07-27] MEDS: NITROFURANTOIN MONOHYD MACROCR 100 MG CAP PO SCH ×2 (12:01→17:35)
[2017-07-27] MEDS: CIPROFLOXACIN 500 MG TAB PO SCH ×2 (12:06→20:09)
[2017-07-27 14:30] LABS: BACTERIA, URINE FEW /hpf; BLOOD, URINE MOD (NEG); GLUCOSE,URINE NEG (NEG); KETONE, URINE NEG (NEG); MUCUS URINE FEW /lpf (OCC); NITRITE,URINE NEG (NEG); SQUAMOUS EPITHELIAL CELL URINE 1 /hpf (0-5); TRANSITIONAL EPI CELLS, URINE <1 /hpf; URINE COLOR LIGHT-YELLOW (YELLW/STRAW)
[2017-07-27 14:31] LABS: COMMENT (UR) CULTURE INDICATED; CULTURE IF INDICATED CULTURE INDICATED
[2017-07-27] MEDS: ENOXAPARIN SODIUM 30 MG/0.3 ML SYRINGE SQ SCH (17:35)
[2017-07-27] MEDS ORDERED: HYDR-3583 PO (17:53)
[2017-07-27] MEDS ORDERED: NITR100C4 PO (17:53)
[2017-07-27] MEDS ORDERED: CIPR-9 PO (17:53)
[2017-07-27] MEDS ORDERED: AMBI5TAB PO (17:53)
[2017-07-27] MEDS: PRAVASTATIN SOD 40 MG TAB PO SCH (20:10)
[2017-07-27] MEDS: ZOLPIDEM TARTRATE 5 MG TAB PO PRN (20:10)
[2017-07-28 00:30] VITALS: BP 156/80; PULSE 65; RESP 18; TEMP 97.7; O2SAT 97
[2017-07-28 04:20] VITALS: BP 150/75; PULSE 66; RESP 18; TEMP 97.6; O2SAT 96
[2017-07-28] MEDS: LEVOTHYROXINE SODIUM 150 MCG TAB PO SCH (06:11)
[2017-07-28] MEDS: ACETAMINOPHEN/HYDROcodone 325 MG/10 MG TAB PO PRN ×2 (06:11→14:13)
[2017-07-28] MEDS: SODIUM CHLORIDE 0.9% FLUSH 10 ML FLUSH IV FLUSH SCH (07:33)
[2017-07-28] MEDS: NITROFURANTOIN MONOHYD MACROCR 100 MG CAP PO SCH (07:33)
[2017-07-28] MEDS: CIPROFLOXACIN 500 MG TAB PO SCH (07:33)
[2017-07-28] MEDS: DULoxetine HCl DR 60 MG CAP PO SCH (07:33)
[2017-07-28] MEDS: DOCUSATE SODIUM 100 MG CAP PO SCH (07:33)
[2017-07-28] MEDS: PREGABALIN 75 MG CAP PO SCH ×2 (07:33→12:38)
[2017-07-28] MEDS: FAMOTIDINE 20 MG TAB PO SCH (07:34)
[2017-07-28] MEDS: BACLOFEN 10 MG TAB PO SCH (07:34)
[2017-07-28 07:41] VITALS: BP 136/67; PULSE 56; RESP 20; TEMP 97.8; O2SAT 95
--- NOTE | 2017-07-28 09:08 | HHI.DS ---
Discharge Summary Admission Date Jul 20, 2017 at 7:49 pm Discharge Date: Jul 28, 2017 Admitting Diagnosis Sepsis, UTI, AMS (1) UTI (urinary tract infection) ICD Code: N39.0 - Urinary tract infection, site not specified Diagnosis: Principal Status: Acute (2) Hypothyroidism ICD Code: E03.9 - Hypothyroidism, unspecified Procedures 07/23/2017 Urology Cystoscopy, extraction of small bladder calculus, right retrograde pyelogram and right ureteral stent placement Brief History - From Admission History from patient, ER physician communication, and review of medical records. "[facility] staff said i was unresponsive, sleeping more than usual " but reports urine has been dark smelled bad had sx for kidney stones and was on antibiotics couldnt get anyone to listen to me, finally, they spoke to doctor a week ago and antibiotics was started dont think antibiotics helped- it still smelled no known fever bp was 90/ systolic today at [facility]- that was the reason why they sent passed 2 stones about a week ago and this weekend urology Dr Carter saw her- but did not do procedure yet, follow up apt in 6 months no nasuea/ no vomting/ no diarrhea was hard to breath while lying flat no back or red stool or blood in urine cough very deep when i lay flat used to use cpap, but company went out of business and they could not get her to get another one Significant Findings Laboratory Tests Test 07/27/17 14:00 Urine Turbidity HAZY (CLEAR) Urine Occult Blood MOD (NEG) Urine Leukocyte Esterase LARGE (NEG) Urine RBC 27 /hpf (0-3) Urine WBC 178 /hpf (0-5) Urine WBC Clumps RARE (NONE) Urine Bacteria FEW /hpf (NONE) Urine Mucus FEW /lpf (OCC) Imaging Last Impressions Lower Extremity Ultrasound 07/21/17 0000 Signed Impressions: Service Date/Time: Friday, July 21, 2017 08:01 - CONCLUSION: Negative exam. No sonographic or Doppler findings of deep venous thrombosis. Lai Jones MD Abdomen/Pelvis CT 07/21/17 0000 Signed Impressions: Service Date/Time: July 06:00 - CONCLUSION: 1. Proximal right ureteral calculus with moderate right hydronephrosis. 2. No increase in the size of the left staghorn calculus with no obstruction and atrophic change. 3. Stable soft tissue area in the right side the pelvis with calcification. Terrence Fierro MD Head CT 07/20/17 0000 Signed Impressions: Service Date/Time: Thursday, July 20, 2017 15:26 - CONCLUSION: 1. Stable evaluation of the brain. 2. No evidence of acute infarct, hemorrhage, mass or edema. Bear Middleton MD Chest X-Ray 07/20/17 0000 Signed Impressions: Service Date/Time: Thursday, July 20, 2017 15:07 - CONCLUSION: 1. Cardiomegaly with mild positive fluid balance. 2. Bibasilar patchy airspace disease, likely atelectasis. Apollo Montague MD PE at Discharge GENERAL: Alert, NAD. SKIN: Warm and dry. HEAD: Normocephalic. EYES: No scleral icterus. No injection or drainage. NECK: Supple, trachea midline. No JVD or lymphadenopathy. CARDIOVASCULAR: Regular rate and rhythm without murmurs, gallops, or rubs. RESPIRATORY: Breath sounds equal bilaterally. No accessory muscle use. GASTROINTESTINAL: Abdomen soft, non-tender, nondistended. MUSCULOSKELETAL: No cyanosis, or edema. BACK: Nontender without obvious deformity. No CVA tenderness. Pt update on day of discharge Patient is doing well. No fever, chills. Tolerating diet well. Hospital Course Ms. Mcfarlane is a 77 year old female with a previous history of ESBL UTI who was admitted to the hospital from [facility] due to altered mental status. Patient overtly confused, decreased responsiveness, slurred speech, with a low BP. She has been on Macrobid recently. - Urinary tract infection - Urine cx shows Enterococcus and GNR. - Waiting for Micro to identify GNR. - WBC 22.9 --> 12.4. - ID was consulted. Nitrofurantoin and Cipro on discharge. - Renal stone - Hydronephrosis - s/p Cystoscopy, extraction of small bladder calculus, right retrograde pyelogram and right ureteral stent placement - Hypothyroidism - Continue Levothyroxine 150mcg Qday. - Hyperlipidemia - Continue Pravastatin 40mg QHS. - Insomnia - continue Ambien but reduced dose to 5mg QHS. DNR. Lovenox 30mg QHS. Pt Condition on Discharge: Good Discharge Disposition: Discharge to SNF Discharge Time: > 30 minutes Discharge Instructions DIET: Follow Instructions for: As Tolerated, No Restrictions Activities you can perform: Regular-No Restrictions Follow up Referrals: SNF/[facility]/ Urology - 3 Weeks with Tam Munguia MD New Medications: Ciprofloxacin (Cipro) 500 Mg Tab 500 MG PO Q12HR for Infection, #28 TAB Nitrofurantoin Monohydrate Macrocrystals (Nitrofurantoin Monohydrate Macrocrystals) 100 Mg Cap 100 MG PO BIDPC for Infection, #28 CAP Zolpidem (Ambien) 5 Mg Tab 5 MG PO HS PRN for INSOMNIA, #10 TAB Continued Medications: Acetaminophen (Tylenol) 325 Mg Tab 325 MG PO Q4H PRN for PAIN SCALE 1 TO 10, TAB 0 Refills Baclofen (Baclofen) 10 Mg Tab 10 MG PO BID for Muscle Spasm, TAB [address] (Dulcolax DR) 5 Mg Tabdr 10 MG PO DAILY PRN for CONSTIPATION, #30 TAB 0 Refills Bisacodyl Supp (Bisacodyl Supp) 10 Mg Supp 10 MG RECTAL EVERY 3 DAYS PRN for CONSTIPATION, SUPP 0 Refills Cholecalciferol (Vitamin D-1000) 1,000 Unit Tab 1000 UNITS PO DAILY for Nutritional Supplement, #1 BOTTLE 0 Refills Docusate Sodium (Docusate Sodium) 100 Mg Cap 100 MG PO BID for Prevent Constipation, #60 CAP [address] (Cymbalta DR) 60 Mg Capdr 60 MG PO DAILY, #30 CAP 0 Refills Famotidine (Famotidine) 20 Mg Tab 20 MG PO BID, #60 TAB 0 Refills Hydrocodone-Acetaminophen (Hydrocodone-Acetaminophen) 10-325 mg Tab 1 TAB PO Q8HR PRN for PAIN, #20 TAB 0 Refills (This prescription has been renewed) Levothyroxine (Levothyroxine) 150 Mcg Tab 150 MCG PO DAILY for Thyroid, #30 TAB 0 Refills Polyethylene Glycol 3350 Powder (Polyethylene Glycol 3350 Powder) 17 Gm Pow 17 GM PO DAILY for Constipation, #1 BOTTLE 0 Refills Pravastatin (Pravastatin) 40 Mg Tab 40 MG PO HS for Cholesterol Management, #30 TAB 0 Refills Pregabalin (Lyrica) 150 Mg Cap 150 MG PO BID, #60 CAP 0 Refills Pregabalin (Lyrica) 150 Mg Cap 300 MG PO DAILY@1400 for Pain Management, #90 CAP 0 Refills Saccharomyces Boulardii (Florastor) 250 Mg Cap 250 MG PO BID for Nutritional Supplement, CAP 0 Refills Sennosides (Senna-Tabs) 8.6 Mg Tab 17.2 MG PO BID for Constipation, #30 TAB 0 Refills Topiramate ER (Topiramate ER) 50 Mg Cap 50 MG PO BID for Seizure Control, #30 CAP 0 Refills Discontinued Medications: Naproxen Sodium (Aleve Arthritis) 220 Mg Tab 220 MG PO BID PRN for PAIN, TAB Nitrofurantoin Monohydrate Macrocrystals (Macrobid) 100 Mg Cap 100 MG PO HS for Infection, #30 CAP 11 Refills Trimethoprim (Trimethoprim) 100 Mg Tab 100 MG PO DAILY for Infection, #60 TAB 0 Refills Zolpidem (Zolpidem) 10 Mg Tab 10 MG PO HS PRN for INSOMNIA, TAB 0 Refills Edgardo Sands DO Jul 28, 2017 09:08
[2017-07-28 11:42] VITALS: BP 134/68; PULSE 57; RESP 20; TEMP 97.8; O2SAT 93
[2017-07-29] MEDS ORDERED: PHARMACY ORDERED LAB ONE (11:45)
== END 2017-07-28 14:28 | DRG 694 ==
LOC: NEPC 12:51 → NEDA 19:49 → N05B 21:54
PROVIDERS: ADMIT Hospitalist; ATTEND Hospitalist
PROC: BT1D1ZZ Fluoroscopy of Right Kidney, Ureter and Bladder using Low Osmolar Contrast (ICD-10-PCS; 2017-07-23)
PROC: 0T768DZ Dilation of Right Ureter with Intraluminal Device, Via Natural or Artificial Opening Endoscopic (ICD-10-PCS; principal; 2017-07-23 11:11)
DX: N20.2 Calculus of kidney with calculus of ureter (principal); N39.0 Urinary tract infection, site not specified; I13.0 Hypertensive heart and chronic kidney disease with heart failure and stage 1 through stage 4 chronic kidney disease, or unspecified chronic kidney disease; I50.9 Heart failure, unspecified; Z68.41 Body mass index [BMI] 40.0-44.9, adult; D49.6 Neoplasm of unspecified behavior of brain; G62.9 Polyneuropathy, unspecified; R41.82 Altered mental status, unspecified; G89.29 Other chronic pain; I25.10 Atherosclerotic heart disease of native coronary artery without angina pectoris; G47.30 Sleep apnea, unspecified; E03.9 Hypothyroidism, unspecified; E66.9 Obesity, unspecified; J42 Unspecified chronic bronchitis; E78.5 Hyperlipidemia, unspecified; G47.00 Insomnia, unspecified; N18.9 Chronic kidney disease, unspecified; K21.9 Gastro-esophageal reflux disease without esophagitis; M81.0 Age-related osteoporosis without current pathological fracture; N21.0 Calculus in bladder; Z66 Do not resuscitate; Z87.440 Personal history of urinary (tract) infections; Z87.891 Personal history of nicotine dependence; Z88.1 Allergy status to other antibiotic agents; Z88.2 Allergy status to sulfonamides; Z88.5 Allergy status to narcotic agent; Z95.5 Presence of coronary angioplasty implant and graft
CPT/HCPCS: 36600; 70450; 71010; 74176; 76937; 80048; 80053; 80202; 81001; 82365; 82370; 82565; 82805; 83605; 84443; 84484; 85007; 85027; 85610; 85730; 86403; 87015; 87040; 87070; 87077; 87086; 87102; 87116; 87185; 87186; 87205; 87206; 88300; 93005; 93306; 93970; 96374; J1335; J1580; J1650; J2185; J2310; J3370; J7030; J7040; J7050; P9612; Q9963

== ENCOUNTER → 2017-09-08 | Day surgery (SDC) | payer MEDICARE, MEDICAID ==
[~2017-09-08] MED LIST changes: -ALEV220T14 PO; -BACL10TA PO; -CYMB60CA PO; +DEXAMETHASONE SOD PHOS 4 MG/ML VIAL IV; +DO NOT ADM ANY ANTICOAGULANT DRUGS; -DOCU100C15 PO; -DULC5TAB PO; -FAMO20TA2 PO; -HYDR-3583 PO; -LEVO150T7 PO; +LIDOCAINE HCL 1% PF 5 ML SYRINGE OTHER; -LISI2.5T3 PO; -LYRI150C PO; -MACR100C2 PO; +METOPROLOL TARTRATE 25 MG TAB PO; +ONDANSETRON HCL 4 MG/2 ML VIAL IV; +ONDANSETRON HCL 4 MG/2 ML VIAL IV PUSH; -POLY17S PO; -PRAV40TA2 PO; +PROPOFOL 200 MG/20 ML AMP IV; -SENN8.6T36 PO; -SIME180C2 PO; +SODIUM CHLORID 0.9% 500 ML IV; -TOPI1CAP18 PO; -TYLE325T PO; -VITA1000 PO; -ZOLP10TA3 PO; -[UNRECOGNIZED DRUG - CODE] PO; +ePHEDrine/NS 25 MG/5 ML SYRINGE IV; +oxyCODONE/ACETAMINOPHEN 5 MG/325 MG TAB PO
[2017-09-08] MEDS: CHLORHEXIDINE GLUCONATE 2 % 1 PACK (2 CLOTHS) TOPICAL (09:00)
[2017-09-08] MEDS: POVIDONE IODINE 5% (ANTISEPSIS KIT) 4 APPLICATIONS EACH NARE (09:20)
[2017-09-08] MEDS: LACTATED RINGER'S 1000 ML IV (09:20)
[2017-09-08 09:56] LABS: AUTOMATED NEUTROPHIL # 4.3 TH/MM3 (1.8-7.7); BASOPHIL # 0.1 TH/MM3 (0-0.2); BASOPHIL % 1.2 % (0.0-2.0); EOSINOPHIL # 0.3 TH/MM3 (0-0.4); EOSINOPHIL % 3.9 % (0.0-4.0); HEMATOCRIT 42.5 % (35.0-46.0); HEMO FLAGS DIFF FINAL; HEMOGLOBIN 13.7 GM/DL (11.6-15.3); LYMPH % 21.4 % (9.0-44.0); LYMPHOCYTE # 1.5 TH/MM3 (1.0-4.8); MEAN CELL VOLUME 93.7 FL (80.0-100.0); MEAN CORPUSCULAR HEMOGLOBIN 30.2 PG (27.0-34.0); MEAN CORPUSCULAR HGB CONC 32.3 % (32.0-36.0); MEAN PLATELET VOLUME 10.7 FL (7.0-11.0); MONO % 12.8 % (0.0-8.0); MONOCYTE # 0.9 TH/MM3 (0-0.9); NEUT % 60.7 % (16.0-70.0); PLATELET COUNT 142 TH/MM3 (150-450); RED BLOOD COUNT 4.54 MIL/MM3 (4.00-5.30); RED CELL DISTRIBUTION WIDTH 14.7 % (11.6-17.2); WHITE BLOOD COUNT 7.1 TH/MM3 (4.0-11.0)
== END | disposition home or self-care (01) ==
LOC: HSDC 07:39
DX: N20.0 Calculus of kidney (principal); I10 Essential (primary) hypertension
CPT/HCPCS: 00873; 50590; 74018; 85025

== ENCOUNTER → 2017-09-10 | Outpatient (CLI) | payer MEDICARE, MEDICAID ==
[~2017-09-10] MED LIST changes: +AMBI5TAB PO; +BACL10TA PO; +CYMB60CA PO; -DEXAMETHASONE SOD PHOS 4 MG/ML VIAL IV; -DO NOT ADM ANY ANTICOAGULANT DRUGS; +DOCU100C15 PO; +FAMO20TA2 PO; +HYDR-3583 PO; +LEVO150T7 PO; -LIDOCAINE HCL 1% PF 5 ML SYRINGE OTHER; +LYRI150C PO; -METOPROLOL TARTRATE 25 MG TAB PO; -ONDANSETRON HCL 4 MG/2 ML VIAL IV; -ONDANSETRON HCL 4 MG/2 ML VIAL IV PUSH; +PERC5TAB12 PO; +POLY17S PO; +PRAV40TA2 PO; -PROPOFOL 200 MG/20 ML AMP IV; +SENN8.6T36 PO; -SODIUM CHLORID 0.9% 500 ML IV; +TOPI1CAP18 PO; +TYLE325T PO; +VITA100064 PO; -ePHEDrine/NS 25 MG/5 ML SYRINGE IV; -oxyCODONE/ACETAMINOPHEN 5 MG/325 MG TAB PO
--- NOTE | 2017-09-10 13:33 | RADRPT ---
EXAM DATE/TIME: 09/10/2017 13:03 [facility] COMPARISON: CT ABDOMEN & PELVIS W/O CONTRAST, April 14, 2016, 22:29. CT ABDOMEN & PELVIS W/O CONTRAST, July 22, 2017, 6:00. INDICATIONS : Follow up right renal stone lithotripsy ORAL CONTRAST: No oral contrast ingested. RADIATION DOSE: 33.24 CTDIvol (mGy) ; Patient body habitus MEDICAL HISTORY : Congestive heart failure. Hypertension. Dementia. SURGICAL HISTORY : Appendectomy. Hysterectomy. ENCOUNTER: Initial ACUITY: 1 day PAIN SCALE: 5/10 LOCATION: Right flank TECHNIQUE: Volumetric scanning of the abdomen and pelvis was performed. Using automated exposure control and ad justment of the mA and/or kV according to patient size, radiation dose was kept as low as reasonably achievable to obtain optimal diagnostic quality images. DICOM format image data is available electro nically for review and comparison. FINDINGS: LOWER LUNGS: The visualized lower lungs are clear. LIVER: Homogeneous density without lesion. There is no dilation of the biliary tree. Prior cholecystectomy. SPLEEN: Normal size without lesion. PANCREAS: Within normal limits. KIDNEYS: Since the prior exam there has been placement of a double-J stent on the right. This is in good posit ion. Several stone fragments are seen involving the lower pole of the right kidney. The largest measu res 6 x 4 mm. Multiple stone fragments are seen distally within the right ureter surrounding the doub le-J stent. These are essentially at the UVJ. The 2 largest fragments measure 12 x 7 mm and 9 x 4 mm. Hydronephrosis does persist on the right. No hydroureter is seen. No perinephric stranding or hemato ma. A staghorn calculus is seen involving the left kidney extending into the UPJ. This is unchanged. No left ureteral calculus observed. ADRENAL GLANDS: Within normal limits. VASCULAR: There is no aortic aneurysm. BOWEL/MESENTERY: The stomach, small bowel, and colon demonstrate no acute abnormality. There is no free intraperitone al air or fluid. ABDOMINAL WALL: Within normal limits. RETROPERITONEUM: There is no lymphadenopathy. BLADDER: No wall thickening or mass. REPRODUCTIVE: A 4.0 x 3.6 cm soft tissue lesion with central popcorn like calcifications again seen within the righ t hemipelvis. This is stable. Much of the pelvis is obscured by beam hardening artifact from the rodrick ent's hip implants.. INGUINAL: There is no lymphadenopathy or hernia. MUSCULOSKELETAL: Bilateral hip prostheses. Diffuse pronounced degenerative changes of the lumbar spine. Degenerative c hanges of the SI joints. CONCLUSION: 1. Interval placement of a double-J stent on the right. This is in good position without hydronephros is persists raising concern for possible stent dysfunction. 2. Multiple stone fragments involving the lower pole the right kidney as well is involving the distal right ureter. Measurements given above. 3. Soft tissue mass involving the right hemipelvis is unchanged from multiple prior studies. Slightly benign potentially related to a dermoid or teratoma. Shakir Valenzuela Jr., MD on September 10, 2017 at 13:17 Board Certified Radiologist. This report was verified electronically.
== END ==
LOC: HRAD 12:09
PROVIDERS: ATTEND Urology
DX: N20.0 Calculus of kidney (principal)
CPT/HCPCS: 74176

== ENCOUNTER → 2017-10-27 | Outpatient (CLI) | payer MEDICARE, MEDICAID ==
--- NOTE | 2017-10-27 13:30 | RADRPT ---
EXAM DATE/TIME: 10/27/2017 12:56 [facility] COMPARISON: ABDOMEN KUB ONLY, September 08, 2017, 8:30. INDICATIONS : Constipation and pain. Possible kidney stone. MEDICAL HISTORY : Urinary schistosomiasis. SURGICAL HISTORY : Cystopexy, Hysterectomy, ENCOUNTER: Initial ACUITY: >1 year PAIN SCORE: 3/10 LOCATION: Lower abdomen FINDINGS: The examination demonstrates a ureteral stent on the right. There multiple stones evident seen within the distal right ureter. The largest measures 1.4 x 0.8 cm. The ureteral stent is in good position. No definite stones are seen within the collecting system. Evaluation of the left kidney demonstrates numerous stones within the left renal pelvis. The largest measures 1.8 x 1.4 cm. I do not see stones evident along the course of the left ureter. No stones are seen within the bladder The bowel gas pattern is within normal limits. Advanced degenerative changes within the spine. CONCLUSION: 1. Multiple renal stones in the distal right ureter. There is a ureteral stent in place. 2. Multiple stones in the left renal pelvis. 3. Evaluation is similar to previous dated 09/08/17. Gee Alfonso MD on October 27, 2017 at 13:26 Board Certified Radiologist. This report was verified electronically.
== END ==
LOC: HRAD 12:23
PROVIDERS: ATTEND Urology
DX: N20.0 Calculus of kidney (principal)
CPT/HCPCS: 74018

== ENCOUNTER → 2017-11-08 | Day surgery (SDC) | payer MEDICARE, MEDICAID ==
[~2017-11-08] VITALS: Ht 175.3 cm; Wt 81.0 kg
[~2017-11-08] MED LIST changes: +*MEPERIDINE 25 MG INJ VIAL PERIprocedural Use ONLY ONE; +*ONDANSETRON 4 MG VIAL PERIprocedural Use ONLY ONE; +CHLORHEXIDINE GLUCONATE 2 % 1 PACK (2 CLOTHS) TOPICAL PRN; +DEXAMETHASONE SOD PHOS 4 MG/ML VIAL IV ONE; +DO NOT ADM ANY ANTICOAGULANT DRUGS PRN; +GLYCOPYRROLATE 1 MG/5 ML SYRINGE IV PUSH ONE; +LACTATED RINGER'S 1000 ML INJ 2,000 ML IV ONE; +LACTATED RINGER'S 1000 ML IV PRN; +LEVA500T33 PO; +LEVOFLOXACIN 500 MG PREMIX INJ 100 ML IV SCH; +LIDOCAINE HCL 1% PF 5 ML SYRINGE OTHER ONE; +METOPROLOL TARTRATE 25 MG TAB PO PRN; +MULT-65 PO; +NEOSTIGMINE 5 MG/5 ML SYRINGE IV PUSH ONE; +ONDANSETRON HCL 4 MG/2 ML VIAL IV ONE; +ONDANSETRON HCL 4 MG/2 ML VIAL IV PUSH PRN; -PERC5TAB12 PO; +PHENYLEPH/NS 1000 MCG/10 ML SYR IV ONE; +PHENYLEPHRINE HCL 10 MG/ML VIAL IV ONE; +POVIDONE IODINE 5% (ANTISEPSIS KIT) 4 APPLICATIONS EACH NARE PRN; +PROPOFOL 200 MG/20 ML AMP IV ONE; +Protein Supplement; +ROCURONIUM INJ 50 MG/5 ML SYRINGE IV PUSH ONE; +SODIUM CHLORID 0.9% 500 ML IV PRN; +TRAM50TA PO; +ePHEDrine/NS 25 MG/5 ML SYRINGE IV ONE; +traMADol HCL 50 MG TAB PO PRN
[2017-11-08 11:39] LABS: AUTOMATED NEUTROPHIL # 5.4 TH/MM3 (1.8-7.7); BASOPHIL # 0.1 TH/MM3 (0-0.2); EOSINOPHIL # 0.4 TH/MM3 (0-0.4); EOSINOPHIL % 3.6 % (0.0-4.0); HEMATOCRIT 40.2 % (35.0-46.0); LYMPH % 29.6 % (9.0-44.0); MEAN CORPUSCULAR HEMOGLOBIN 29.7 PG (27.0-34.0); MEAN CORPUSCULAR HGB CONC 32.3 % (32.0-36.0); MEAN PLATELET VOLUME 10.4 FL (7.0-11.0); MONO % 12.4 % (0.0-8.0); MONOCYTE # 1.3 TH/MM3 (0-0.9); NEUT % 53.4 % (16.0-70.0); PLATELET COUNT 175 TH/MM3 (150-450); RED BLOOD COUNT 4.37 MIL/MM3 (4.00-5.30); RED CELL DISTRIBUTION WIDTH 15.6 % (11.6-17.2); WHITE BLOOD COUNT 10.2 TH/MM3 (4.0-11.0)
--- NOTE | 2017-11-08 14:14 | PD.OP ---
Operative Report Date of Surgery: Nov 08, 2017 Preoperative Diagnosis: (1) Ureteral calculus, right Postoperative Diagnosis: (1) Ureteral calculus, right (2) Retained ureteral stent Procedure: Cystoscopy, right ureteroscopy with laser lithotripsy of multiple right distal ureteral calculi as well as proximal loop of right ureteral stent, right retrograde pyelogram and right ureteral stent exchange Anesthesia: General Surgeon: Tam Munguia Inventory Management Specialist(s): None Operation and Findings: Indication for procedures: Case of a pleasant 77-year-old female with multiple left ureteral calculi who presents today for right ureteroscopy with laser lithotripsy. Operative procedures in detail: Patient was brought to the operating room suite and placed supine on the cystoscopy table. She was then placed under general anesthesia. She was then repositioned in the dorsolithotomy position and prepped and draped in normal sterile fashion. After an appropriate timeout was undertaken I proceeded with cystoscopic evaluation utilizing the rigid cystoscope with the 20 [place] sheath and 30 lens. The previously inserted right ureteral stent was seen protruding from the right orifice and it was grasped with flexible forceps. The stent was brought out to the urethral meatus but could not be advanced further due to a significant amount of resistance. I then released the stent and reintroduced the cystoscope and passed a sensor 0.035 wire alongside the stent under fluoroscopic guidance. With the ureter stabilized with the wire I once again attempted to remove the stent without success. I then exchanged the cystoscope for the self dilating ureteroscope and proceeded with ureteroscopic evaluation. The patient was noted to have multiple right distal ureteral stones which were then broken up utilizing the holmium laser with the 200 m fiber. Once the stones were broken up I was able to further advance the ureteroscope up to the right ureteropelvic junction whereby the calcified proximal loop of the stent was visualized. The encrusted loop was then broken up with the laser fiber as well and the stent was then easily retrieved. The ureteroscope was then carefully withdrawn. I then proceeded with placing a long-term Shanor-Northvue stent 24 cm length 6 [place] in size of the patient's right ureter under both cystoscopic and fluoroscopic guidance. Once the stent was in proper position the trailing string was removed. A 16 [place] 10 cc Vega catheter was then placed and connected to gravity drainage. Tam Munguia MD Nov 08, 2017 14:14
[2017-11-08 17:30] VITALS: BP 107/49; PULSE 60; RESP 18; TEMP 97.8; O2SAT 92
== END | disposition home or self-care (01) ==
LOC: HSDC 05:30
PROVIDERS: ATTEND Urology
DX: N20.1 Calculus of ureter (principal); T83.192A Other mechanical complication of indwelling ureteral stent, initial encounter; E03.9 Hypothyroidism, unspecified; Z87.440 Personal history of urinary (tract) infections; Z01.818 Encounter for other preprocedural examination
CPT/HCPCS: 00918; 52356; 74420; 82365; 82370; 85025; 88300; C1769; J1100; J1956; J2175; J2370; J2405; J2710; J3010; J7120

== ENCOUNTER → 2017-12-22 | Day surgery (SDC) | payer MEDICARE, MEDICAID ==
[~2017-12-22] MED LIST changes: -*MEPERIDINE 25 MG INJ VIAL PERIprocedural Use ONLY ONE; -*ONDANSETRON 4 MG VIAL PERIprocedural Use ONLY ONE; -AMBI5TAB PO; -BACL10TA PO; -CHLORHEXIDINE GLUCONATE 2 % 1 PACK (2 CLOTHS) TOPICAL PRN; -CYMB60CA PO; -DEXAMETHASONE SOD PHOS 4 MG/ML VIAL IV ONE; +DO NOT ADM ANY ANTICOAGULANT DRUGS; -DO NOT ADM ANY ANTICOAGULANT DRUGS PRN; -DOCU100C15 PO; -FAMO20TA2 PO; -GLYCOPYRROLATE 1 MG/5 ML SYRINGE IV PUSH ONE; -HYDR-3583 PO; +INSULIN HUMAN REGULAR 1,000 UNITS/10 ML VIAL SQ; -LACTATED RINGER'S 1000 ML INJ 2,000 ML IV ONE; -LACTATED RINGER'S 1000 ML IV PRN; -LEVA500T33 PO; -LEVO150T7 PO; -LEVOFLOXACIN 500 MG PREMIX INJ 100 ML IV SCH; +LIDOCAINE HCL 1% PF 5 ML SYRINGE OTHER; -LIDOCAINE HCL 1% PF 5 ML SYRINGE OTHER ONE; -LYRI150C PO; +METOPROLOL TARTRATE 25 MG TAB PO; -METOPROLOL TARTRATE 25 MG TAB PO PRN; -MULT-65 PO; -NEOSTIGMINE 5 MG/5 ML SYRINGE IV PUSH ONE; -ONDANSETRON HCL 4 MG/2 ML VIAL IV ONE; +ONDANSETRON HCL 4 MG/2 ML VIAL IV PUSH; -ONDANSETRON HCL 4 MG/2 ML VIAL IV PUSH PRN; -PHENYLEPH/NS 1000 MCG/10 ML SYR IV ONE; -PHENYLEPHRINE HCL 10 MG/ML VIAL IV ONE; -POLY17S PO; -POVIDONE IODINE 5% (ANTISEPSIS KIT) 4 APPLICATIONS EACH NARE PRN; -PRAV40TA2 PO; +PROPOFOL 200 MG/20 ML AMP IV; -PROPOFOL 200 MG/20 ML AMP IV ONE; -Protein Supplement; -ROCURONIUM INJ 50 MG/5 ML SYRINGE IV PUSH ONE; -SENN8.6T36 PO; +SODIUM CHLORID 0.9% 500 ML IV; -SODIUM CHLORID 0.9% 500 ML IV PRN; -TOPI1CAP18 PO; -TRAM50TA PO; -TYLE325T PO; -VITA100064 PO; +ePHEDrine/NS 25 MG/5 ML SYRINGE IV; -ePHEDrine/NS 25 MG/5 ML SYRINGE IV ONE; +oxyCODONE/ACETAMINOPHEN 5 MG/325 MG TAB PO; +traMADol HCL 50 MG TAB PO; -traMADol HCL 50 MG TAB PO PRN
[2017-12-22] MEDS: POVIDONE IODINE 5% (ANTISEPSIS KIT) 4 APPLICATIONS EACH NARE (09:00)
[2017-12-22] MEDS: CHLORHEXIDINE GLUCONATE 2 % 1 PACK (2 CLOTHS) TOPICAL (09:15)
[2017-12-22] MEDS: LACTATED RINGER'S 1000 ML IV (09:45)
[2017-12-22 10:15] LABS: AUTOMATED NEUTROPHIL # 4.8 TH/MM3 (1.8-7.7); BASOPHIL # 0.1 TH/MM3 (0-0.2); BASOPHIL % 1.1 % (0.0-2.0); EOSINOPHIL # 0.4 TH/MM3 (0-0.4); EOSINOPHIL % 4.2 % (0.0-4.0); HEMATOCRIT 40.5 % (35.0-46.0); HEMO FLAGS DIFF FINAL; LYMPH % 31.1 % (9.0-44.0); LYMPHOCYTE # 2.9 TH/MM3 (1.0-4.8); MEAN CELL VOLUME 90.1 FL (80.0-100.0); MEAN CORPUSCULAR HEMOGLOBIN 28.9 PG (27.0-34.0); MEAN PLATELET VOLUME 9.9 FL (7.0-11.0); MONO % 12.4 % (0.0-8.0); MONOCYTE # 1.2 TH/MM3 (0-0.9); NEUT % 51.2 % (16.0-70.0); PLATELET COUNT 156 TH/MM3 (150-450); RED BLOOD COUNT 4.49 MIL/MM3 (4.00-5.30); RED CELL DISTRIBUTION WIDTH 16.1 % (11.6-17.2); WHITE BLOOD COUNT 9.3 TH/MM3 (4.0-11.0)
== END | disposition home or self-care (01) ==
LOC: HSDC 07:47
DX: N20.2 Calculus of kidney with calculus of ureter (principal); Z01.818 Encounter for other preprocedural examination
CPT/HCPCS: 00872; 50590; 74018; 85025

== ENCOUNTER 2018-01-11 20:24 | Inpatient (IN) | payer MEDICARE, MEDICAID ==
[~2018-01-11] VITALS: Ht 167.6 cm; Wt 114.8 kg
[~2018-01-11 20:24] MED LIST changes: +AMBI5TAB PO; +BACL10TA PO; +CYMB60CA PO; -DO NOT ADM ANY ANTICOAGULANT DRUGS; +DOCU100C15 PO; +FAMO20TA2 PO; +HYDR-3583 PO; -INSULIN HUMAN REGULAR 1,000 UNITS/10 ML VIAL SQ; +LEVA500T33 PO; +LEVO150T7 PO; -LIDOCAINE HCL 1% PF 5 ML SYRINGE OTHER; +LYRI150C PO; -METOPROLOL TARTRATE 25 MG TAB PO; +MULT-65 PO; -ONDANSETRON HCL 4 MG/2 ML VIAL IV PUSH; +POLY17S PO; +PRAV40TA2 PO; -PROPOFOL 200 MG/20 ML AMP IV; +Protein Supplement; +SENN8.6T36 PO; -SODIUM CHLORID 0.9% 500 ML IV; +TOPI1CAP18 PO; +TRAM50 PO; +TRAM50TA PO; +TYLE325T PO; +VITA100064 PO; -ePHEDrine/NS 25 MG/5 ML SYRINGE IV; -oxyCODONE/ACETAMINOPHEN 5 MG/325 MG TAB PO; -traMADol HCL 50 MG TAB PO
[2018-01-11 20:34] VITALS: BP 144/65; PULSE 77; RESP 16; TEMP 100.3; O2SAT 96
[2018-01-11] MEDS ORDERED: SODIUM CHLOR 0.9% 250 ML INJ 250 ML IV ONE (20:45)
--- NOTE | 2018-01-11 21:04 | PD ---
HPI Chief Complaint: Altered Mental Status Time Seen by Provider: 20:37 Travel History International Travel<30 days: No Contact w/Intl Traveler<30days: No Traveled to known affect area: No History of Present Illness HPI The patient is a 77 year old female who presents to the [facility] emergency department with a history of altered mentation noted by her senior care earlier in the day today. This was reportedly noticed in the morning that she was having increasing fatigue, decreased level of consciousness, difficulty feeding herself. The patient on arrival is noted to be drowsy. The patient is oriented to person, place, time, and situation. She is also oriented to the president. The patient reports having abdominal pain and back pain. She denies having any nausea, vomiting, the patient's recent history is complicated by having a kidney stone status post lithotripsy with a local your, Dr. Munguia on December 22. The patient reports that she has had a diminished appetite. The patient has difficulty describing the characteristics of her abdominal pain and back pain. She is unsure of the exact location. The patient is unsure of her entire medical history, however she according to ambulance services has a history of dementia. The patient reports that she is also paraplegic with loss of sensation in her lower extremities back surgery that went awry according to her 40+ years ago. The patient reportedly had a fever prior to arrival at 100.5 and was given Tylenol at her senior care. The patient is a resident at [facility]. The patient is reportedly DNR. On review of systems otherwise, the patient denies having any cough or congestion, neck pain, chest pain, or new neurologic symptoms. The patient does report having sensation of shortness of breath with difficulty taking a deep breath. She denies having any urinary symptoms at this time. FORMERLY [facility] Past Medical History Narrative Medical The patient's past medical history is significant for chronic pain, neuropathy, coronary artery disease status post stent placement, sleep apnea, obesity, history of kidney stones, history of hypothyroid disorder Arthritis: Yes Asthma: No Autoimmune Disease: No Heart Rhythm Problems: No Cancer: No Cardiovascular Problems: Yes (CAD, chol) High Cholesterol: Yes Chemotherapy: No Chest Pain: Yes Congestive Heart Failure: Yes Cerebrovascular Accident: No Coronary Artery Disease: Yes Dementia: Yes Diabetes: No Diminished Hearing: No Endocrine: Yes GERD: Yes Genitourinary: No Headaches: No Hepatitis: No Hiatal Hernia: No Hypertension: Yes Immune Disorder: No Insomnia: Yes Kidney Stones: No Musculoskeletal: Yes (arthritis) Neurologic: No (no sz hx, sz med for brain tumor) Psychiatric: Yes (depression) Reproductive: No Respiratory: No Radiation Therapy: No Renal Failure: Yes Seizures: No Sickle Cell Disease: No Sleep Apnea: No Thyroid Disease: Yes (HYPOTHYROIDISM) Triglycerides - High: Yes Ulcer: No ?: Not Past Surgical History Narrative Surgical The patient's past surgical history is significant for cardiac catheterization with stent placement, cataract surgery, kidney stone related surgery including lithotripsy recently on December 22, 2017, for prior low back surgeries, knee surgery 2, bladder surgery. Abdominal Surgery: No (APPY) AICD: No Arteriovenous Shunt: No Cardiac Surgery: No Ear Surgery: No Endocrine Surgery: No Eye Surgery: Yes (Cateracts) Genitourinary Surgery: Yes (kidney, bladder) Gynecologic Surgery: Yes (HYSTERECTOMY) Joint Replacement: Yes (bilat knees/hips) Oral Surgery: Yes (extract teeth) Pacemaker: No Thoracic Surgery: No Other Surgery: Yes Social History Alcohol Use: No Tobacco Use: No Substance Use: No Allergies-Medications (Allergen,Severity, Reaction): Coded Allergies: Sulfa (Sulfonamide Antibiotics) (Verified Allergy, Severe, 12/22/17) codeine (Verified Allergy, Severe, 12/22/17) morphine (Verified Allergy, Severe, 12/22/17) amoxicillin (Verified Allergy, Unknown, UNKNOWN, 12/22/17) Reported Meds & Prescriptions Reported Meds & Active Scripts Active Ultram (Tramadol HCl) 50 Mg Tab 50 Mg PO Q6H PRN Tramadol (Tramadol HCl) 50 Mg Tab 50 Mg PO Q6H PRN Levaquin (Levofloxacin) 500 Mg Tablet 500 Mg PO DAILY First dose to be taken tomorrow morning Ambien (Zolpidem Tartrate) 5 Mg Tab 5 Mg PO HS PRN Hydrocodone-Acetaminophen 10-325 mg Tab 1 Tab PO Q8HR PRN Reported [Protein Supplement] Multi-Vitamin Daily (Multiple Vitamin) 1 Tab Tab 1 Tab PO DAILY Lyrica (Pregabalin) 150 Mg Cap 2 Tab PO 2PM Vitamin D3 (Cholecalciferol) 1,000 Unit Tab 1,000 Units PO DAILY Senna-Tabs (Sennosides) 8.6 Mg Tab 17.2 Mg PO BID Topiramate ER (Topiramate) 50 Mg Cap 50 Mg PO BID Famotidine 20 Mg Tab 20 Mg PO BID Tylenol (Acetaminophen) 325 Mg Tab 325 Mg PO Q4H PRN Pravastatin 40 Mg Tab 40 Mg PO HS Lyrica (Pregabalin) 150 Mg Cap 1 Tab PO 6AM,10PM Cymbalta DR (Duloxetine HCl) 60 Mg Capdr 60 Mg PO DAILY Docusate Sodium 100 Mg Cap 100 Mg PO BID Polyethylene Glycol 3350 Powder (Polyethylene Glycol) 17 Gm Pow 17 Gm PO DAILY Levothyroxine (Levothyroxine Sodium) 150 Mcg Tab 150 Mcg PO DAILY Baclofen 10 Mg Tab 10 Mg PO BID Review of Systems Except as stated in HPI: all other systems reviewed are Neg General / Constitutional: Positive: Fever Eyes: No: Visual changes HENT: No: Headaches, Congestion Cardiovascular: Positive: Dyspnea on exertion, No: Chest Pain or Discomfort Respiratory: Positive: Shortness of Breath, No: Cough Gastrointestinal: Positive: Abdominal Pain, Loss of Appetite, No: Nausea, Vomiting, Diarrhea, Indigestion Genitourinary: No: Frequency, Dysuria Musculoskeletal: Positive: Myalgias, Pain Skin: No Rash Neurologic: No: Weakness Psychiatric: No: Depression Endocrine: No: Polydipsia Hematologic/Lymphatic: No: Easy Bruising Physical Exam Narrative General: The patient is a well-developed well-nourished female in no acute distress. Head and Neck exam: Head is normocephalic atraumatic. Eyes: EOMI, pupils are equal round and reactive to light. Nose: Midline septum with pink mucous membranes Mouth: Dentition unremarkable. Dry mucus membranes. Posterior oropharynx is not erythematous. No tonsillar hypertrophy. Uvula midline. Airway patent. Neck: No palpable lymphadenopathy. No nuchal rigidity. No thyromegaly. Cardiovascular: Regular rate and rhythm without murmurs, gallops, or rubs. No pulse deficit to the extremities on simultaneous auscultation and palpation of her radial artery. Lungs: Clear to auscultation bilaterally. No wheezes, rhonchi, or rales. Abdomen: Soft, with reported tenderness on palpation in the periumbilical area, just above the umbilicus. Distention related to central obesity, no palpable organomegaly or masses and no palpable hernia. No guarding, rebound, or rigidity. Normal bowel sounds are audible. No tenderness on palpation of McBurney's point. Negative Iglesias sign. Extremities: No clubbing or cyanosis. The patient has trace to 1+ pitting edema bilateral lower extremity. 2+ pulses in all 4 extremities. Back: No costovertebral angle tenderness to palpation. Neurologic Exam: The patient is drowsy on examination. The patient has no facial asymmetry noted. The patient has strength that is 5/5 in bilateral upper extremities. She reports having of 40+ year history of loss of sensation to bilateral lower extremities with weakness of her lower extremities from prior back surgery. Her neurologic examination appears to be at baseline. She is alert and oriented to person, place, time, and situation. Skin Exam: No rash noted. Intact skin that is warm and dry. Data Data Last Documented VS Vital Signs Date Time Temp Pulse Resp B/P (MAP) Pulse Ox O2 Delivery O2 Flow Rate FiO2 01/12/18 02:26 67 20 112/78 (89) 98 Nasal Cannula 2.00 01/11/18 20:34 100.3 Orders Orders Electrocardiogram (01/11/18 20:37) Complete Blood Count With Diff (01/11/18 20:37) Comprehensive Metabolic Panel (01/11/18 20:37) Creatine Kinase (Cpk) (01/11/18 20:37) Ckmb (Isoenzyme) Profile (01/11/18 20:37) Troponin I (01/11/18 20:37) B-Type Natriuretic Peptide (01/11/18 20:37) Prothrombin Time / Inr (Pt) (01/11/18 20:37) Act Partial Throm Time (Ptt) (01/11/18 20:37) Blood Culture (01/11/18 20:37) Lipase (01/11/18 20:37) Urinalysis - C+S If Indicated (01/11/18 20:37) Cath For Specimen (01/11/18 20:37) Magnesium (Mg) (01/11/18 20:37) Ammonia (01/11/18 20:37) Thyroid Stimulating Hormone (01/11/18 20:37) Chest, Single Ap (01/11/18 20:37) Iv Access Insert/Monitor (01/11/18 20:37) Ecg Monitoring (01/11/18 20:37) Oximetry (01/11/18 20:37) Lactic Acid Sepsis Protocol (01/11/18 20:37) Sodium Chlor 0.9% 250 Ml Inj (Ns 250 Ml (01/11/18 20:45) Levofloxacin 750 Mg Premix Inj (Levaquin (01/11/18 22:30) Urine Culture (01/11/18 23:15) Ct Abd/Pel W Iv Contrast(Rout) (01/12/18 23:09) Iohexol 350 Inj (Omnipaque 350 Inj) (01/11/18 23:50) Labs Laboratory Tests Test 01/11/18 21:15 01/11/18 22:00 01/11/18 23:15 01/11/18 23:29 White Blood Count 13.7 TH/MM3 Red Blood Count 4.25 MIL/MM3 Hemoglobin 12.2 GM/DL Hematocrit 36.9 % Mean Corpuscular Volume 87.0 FL Mean Corpuscular Hemoglobin 28.8 PG Mean Corpuscular Hemoglobin Concent 33.1 % Red Cell Distribution Width 16.1 % Platelet Count 205 TH/MM3 Mean Platelet Volume 9.7 FL Neutrophils (%) (Auto) 69.0 % Lymphocytes (%) (Auto) 17.7 % Monocytes (%) (Auto) 11.0 % Eosinophils (%) (Auto) 1.7 % Basophils (%) (Auto) 0.6 % Neutrophils # (Auto) 9.4 TH/MM3 Lymphocytes # (Auto) 2.4 TH/MM3 Monocytes # (Auto) 1.5 TH/MM3 Eosinophils # (Auto) 0.2 TH/MM3 Basophils # (Auto) 0.1 TH/MM3 CBC Comment DIFF FINAL Differential Comment Prothrombin Time 10.1 SEC Prothromb Time International Ratio 1.0 RATIO Activated Partial Thromboplast Time 28.7 SEC Lactic Acid Level 0.9 mmol/L B-Type Natriuretic Peptide 33 PG/ML Ammonia 46 MCMOL/L Urine Color YELLOW Urine Turbidity CLOUDY Urine pH 7.0 Urine Specific [place] 1.016 Urine Protein 100 mg/dL Urine Glucose (UA) NEG mg/dL Urine Ketones NEG mg/dL Urine Occult Blood SMALL Urine Nitrite NEG Urine Bilirubin NEG Urine Urobilinogen LESS THAN 2.0 MG/DL Urine Leukocyte Esterase LARGE Urine RBC 15 /hpf Urine WBC /hpf Urine WBC Clumps MANY Urine Squamous Epithelial Cells 2 /hpf Urine Transitional Epithelial Cells <1 /hpf Urine Bacteria MANY /hpf Microscopic Urinalysis Comment CULTURE INDICATED Blood Urea Nitrogen 28 MG/DL Creatinine 1.00 MG/DL Random Glucose 140 MG/DL Total Protein 7.5 GM/DL Albumin 2.5 GM/DL Calcium Level 8.5 MG/DL Magnesium Level 2.3 MG/DL Alkaline Phosphatase 94 U/L Aspartate Amino Transf (AST/SGOT) 11 U/L Alanine Aminotransferase (ALT/SGPT) 15 U/L Total Bilirubin 0.3 MG/DL Sodium Level 144 MEQ/L Potassium Level 3.6 MEQ/L Chloride Level 110 MEQ/L Carbon Dioxide Level 24.6 MEQ/L Anion Gap 9 MEQ/L Estimat Glomerular Filtration Rate 53 ML/MIN Total Creatine Kinase 25 U/L Troponin I LESS THAN 0.02 NG/ML Lipase 65 U/L Thyroid Stimulating Hormone 3rd Gen 0.063 uIU/ML MDM Medical Decision Making Medical Screen Exam Complete: Yes Emergency Medical Condition: Yes Medical Record Reviewed: Yes Differential Diagnosis Sepsis related encephalopathy, versus hepatic encephalopathy, versus urinary tract infection, versus pneumonia, versus renal failure with uremic related encephalopathy, versus intra-abdominal infection Narrative Course During the course of the patient's emergency department visit, the patient's history, examination, and differential diagnosis were reviewed with the patient. The patient was placed on a complex manager with oximetry and frequent blood pressure monitoring. The patient had IV access obtained and blood work sent for analysis. The patient had an EKG done on arrival that shows a sinus rhythm heart rate is 74, QRS duration 88 ms, QTC [address] segment elevation or depression. The patient was initially provided normal saline at 250 mL IV fluid bolus 1. The patient will be gently rehydrated while in the emergency department. The patient was provided Tylenol for fever prior to arrival. The patient was given Levaquin 750 mg IV 1. The patient's laboratory studies were reviewed and remarkable for a catheterized urine that shows cloudy urine large leukocyte esterase 15 RBCs innumerable WBCs, many clumps, many bacteria, culture indicated. A white count of 13.7, hemoglobin 12.2, platelets 205 with 11 monocytes. A lactic acid and blood culture have been sent for analysis. CMP is remarkable for chloride of 110, BUN 28, GFR 53, glucose 140, AST 11, CPK and troponin I within normal limits, TSH is low at 0.063, lipase 65, ammonia level 45, BMP within normal limits, PT 10.1, PTT 28.7. Radiology studies were reviewed and remarkable for a chest x-ray that shows parenchymal changes on the left side suspicious for pneumonia. CT scan of the abdomen and pelvis shows a moderate hydronephrosis in the right kidney due to a distal ureteral stone almost 7 the, additional stones in the right kidney are also noted, the patient also has a staghorn calculus in the left kidney with numerous other stones within the calyces on the left side of multiple fragmented stones within the left renal pelvis. 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 The patient's results were discussed with the patient, including the plan of care. I explained that further testing and/ or monitoring is indicated based on the patient's history, examination, and/ or laboratory findings. Therefore, I recommended admission for additional evaluation. The patient expressed understanding and was agreeable with this plan. The patient was admitted to the hospital in guarded condition and sent to [facility]. Physician Communication Physician Communication The patient's case including history, pertinent physical examination findings, and laboratory studies were discussed with Dr. Sykes. It was agreed that the patient would be admitted to the [facility]. Diagnosis Primary Impression: Pneumonia Qualified Codes: J18.9 - Pneumonia, unspecified organism Additional Impressions: UTI (urinary tract infection) Qualified Codes: N39.0 - Urinary tract infection, site not specified; R31.9 - Hematuria, unspecified Low TSH level Bilateral kidney stones Admitting Information Admitting Physician Requests: Admit Krista Melgar MD January 11, 2018 21:04
--- NOTE | 2018-01-11 21:13 | RADRPT ---
EXAM DATE: 01/11/2018 9:03 PM EDT AGE/SEX: 77 years / Female INDICATIONS: Fever. CLINICAL DATA: This is the patient's initial encounter. Patient reports that signs and symptoms have been present for 1 day and indicates a pain score of Nonresponsive. MEDICAL/SURGICAL HISTORY: Congestive heart failure. Hypercholesterolemia. Hypertension. Coron arik artery stent. Hysterectomy. Appendectomy. COMPARISON: [facility] [place], 07/20/[place]. . FINDINGS: Cardiomegaly with mild interstitial edema. There is no evidence of pleural effusion. Minimal parenchy mal changes left base. Shoulder arthroplasty on the left. CONCLUSION: Mild congestive failure with minimal parenchymal changes on the left. Inflammatory process would be c onsideration. Electronically signed by: Hal Alfonso MD 01/11/2018 9:12 PM EDT
[2018-01-11 21:50] LABS: AUTOMATED NEUTROPHIL # 9.4 TH/MM3 (1.8-7.7); BASOPHIL # 0.1 TH/MM3 (0-0.2); BASOPHIL % 0.6 % (0.0-2.0); EOSINOPHIL # 0.2 TH/MM3 (0-0.4); EOSINOPHIL % 1.7 % (0.0-4.0); HEMATOCRIT 36.9 % (35.0-46.0); HEMOGLOBIN 12.2 GM/DL (11.6-15.3); LYMPH % 17.7 % (9.0-44.0); LYMPHOCYTE # 2.4 TH/MM3 (1.0-4.8); MEAN CORPUSCULAR HEMOGLOBIN 28.8 PG (27.0-34.0); MEAN CORPUSCULAR HGB CONC 33.1 % (32.0-36.0); MEAN PLATELET VOLUME 9.7 FL (7.0-11.0); MONOCYTE # 1.5 TH/MM3 (0-0.9); PLATELET COUNT 205 TH/MM3 (150-450); RED BLOOD COUNT 4.25 MIL/MM3 (4.00-5.30); RED CELL DISTRIBUTION WIDTH 16.1 % (11.6-17.2); WHITE BLOOD COUNT 13.7 TH/MM3 (4.0-11.0)
[2018-01-11 22:10] LABS: PROTHROMBIN TIME - PATIENT 10.1 SEC (9.8-11.6)
[2018-01-11] MEDS ORDERED: LEVOFLOXACIN 750 MG PREMIX INJ 150 ML IV ONE (22:30)
[2018-01-11 23:31] VITALS: BP 110/77; PULSE 72; RESP 18; O2SAT 97
[2018-01-11 23:45] LABS: BACTERIA, URINE MANY /hpf; BILIRUBIN, URINE NEG (NEG); BLOOD, URINE SMALL (NEG); GLUCOSE,URINE NEG (NEG); KETONE, URINE NEG (NEG); NITRITE,URINE NEG (NEG); SQUAMOUS EPITHELIAL CELL URINE 2 /hpf (0-5); TRANSITIONAL EPI CELLS, URINE <1 /hpf; URINE COLOR YELLOW (YELLW/STRAW); URINE LEUKOCYTE ESTERASE LARGE (NEG); WHITE BLOOD CELL CLUMPS MANY
[2018-01-11] MEDS ORDERED: IOHEXOL 350 MG/ML 10 ML VIAL (for RAD DIAG) IVCONTRAST ONE (23:50)
[2018-01-11 23:57] LABS: ALBUMIN 2.5 GM/DL (3.4-5.0); ALT (GPT) 15 U/L (10-53); AST (GOT) 11 U/L (15-37); BLOOD UREA NITROGEN 28 MG/DL (7-18); CALCIUM 8.5 MG/DL (8.5-10.1); CHLORIDE 110 MEQ/L (98-107); GLOMERULAR FILTRATION RATE 53 ML/MIN (>89); GLUCOSE,RANDOM 140 MG/DL (74-106); MAGNESIUM 2.3 MG/DL (1.5-2.5); SODIUM (NA) 144 MEQ/L (136-145)
[2018-01-11 23:58] LABS: BICARBONATE 24.6 MEQ/L (21.0-32.0)
[2018-01-12] VITALS (18 sets, daily range): BP systolic 110–135; BP diastolic 56–78; PULSE 62–74; RESP 16–20; TEMP 98.3–98.5; O2SAT 94–98
[2018-01-12 00:07] LABS: ALKALINE PHOSPHATASE 94 U/L (45-117); TOTAL BILIRUBIN ADULT 0.3 MG/DL (0.2-1.0); TOTAL PROTEIN 7.5 GM/DL (6.4-8.2); TROPONIN I LESS THAN 0.02 NG/ML (0.02-0.05)
--- NOTE | 2018-01-12 02:44 | RADRPT ---
EXAM DATE: 01/12/2018 12:45 AM EDT AGE/SEX: 77 years / Female INDICATIONS: Abdomen pain; fever. CLINICAL DATA: This is the patient's initial encounter. Patient reports that signs and symptoms have been present for 1 day and indicates a pain score of 5/10. MEDICAL/SURGICAL HISTORY: Cardiovascular disease. Renal calculi. Appendectomy. Cholecystectom y. Appendectomy. ORAL CONTRAST: No oral contrast ingested. RADIATION DOSE: 29.89 CTDI (mGy) [place] [facility] [place] CONTRAST[place] 09/10/2017. . TECHNIQUE: Multiple contiguous axial images were obtained through the abdomen and pelvis following b olus infusion of 80 ml Omnipaque 350 (iohexol) nonionic water-soluble contrast as a single exam dos e. No oral contrast ingested. Using automated exposure control and adjustment of the mA and/or kV ac cording to patient size, the radiation dose was kept as low as reasonably achievable to obtain optima l diagnostic quality images. FINDINGS: Abdomen CT: The liver, spleen, pancreas, adrenals are unremarkable. There is a staghorn calculus in the left kidn ey measures almost 3.6 cm in size with additional stones within the left renal pelvis the largest one measures almost 1.4 cm in size. There are additional stones in the upper and mid and lower pole aubrey x of the left kidney as well. There is also an approximate 1.6 cm stone in right lower pole kidney wi th tinier stones adjacent to it. There is moderate hydronephrosis in the right kidney and hydroureter due to an approximate 7 mm right distal ureteral stone above the UVJ. Previously seen double-J stent on the right has been removed. Some of the previously seen stones in the right kidney mid pole are n ot visualized and may have passed. The left renal stones within the renal pelvis appear fragmented si nce the prior exam. There is no evidence for any appreciable pathological adenopathy, free fluid, or bowel obstruction. Coronary artery calcifications are seen typically seen with coronary artery disea se and clinical correlation and evaluation is suggested. There are atherosclerotic calcifications inv olving the aorta and iliac arteries chronic in nature. The common bile duct measures 1.5 cm without a ny significant intrahepatic ductal dilatation most likely from post cholecystectomy reservoir changes . Pelvic CT: There is no evidence for abscess formation, or any significant adenopathy within the pelvis. 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 Bilateral total hip arthroplasties are present and there are old healed fractures of the left pubic rami, symphysis pubis. Bony structures are extremely osteopenic. There is moderate amount of stool throughout the colon. CONCLUSION: 1. There is moderate hydronephrosis in the right kidney due to a distal ureteral stone almost 7 mm i n size. Additional stones in the right kidney. 2. Staghorn calculus in the left kidney with numerous other stones within the calyces on the left si de and multiple fragmented stones within the left renal pelvis. 3. 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 Electronically signed by: Leena Go MD 01/12/2018 2:42 AM EDT
[2018-01-12] MEDS ORDERED: LACTULOSE SYRUP 20 GM/30 ML CUP PO PRN (04:00)
[2018-01-12] MEDS ORDERED: NALOXONE HCL 0.4 MG/ML AMP IV PUSH PRN (04:00)
[2018-01-12] MEDS ORDERED: SENNOSIDES 8.6 MG TAB PO PRN (04:00)
[2018-01-12] MEDS ORDERED: BISACODYL 10 MG SUPP RECTAL PRN (04:00)
[2018-01-12] MEDS ORDERED: SODIUM CHLORIDE 0.9% FLUSH 10 ML FLUSH IV FLUSH PRN (04:00)
[2018-01-12] MEDS ORDERED: ACETAMINOPHEN 325 MG TAB PO PRN (04:00)
[2018-01-12] MEDS ORDERED: ONDANSETRON HCL 4 MG/2 ML VIAL IVP PRN (04:00)
[2018-01-12] MEDS ORDERED: MAGNESIUM HYDROXIDE SUSP 30 ML CUP PO PRN (04:00)
--- NOTE | 2018-01-12 04:04 | HHI.HP ---
HPI Service [facility] Primary Care Physician Unknown Admission Diagnosis Pneumonia, Kidney stones, UTI, AMS Diagnoses: Travel History International Travel<30 Days: No Contact w/Intl Traveler <30 Da: No Traveled to Known Affected Are: No History of Present Illness 77-year-old female with a past medical history significant for nephrolithiasis currently undergoing lithotripsy with Dr. Munguia, hypertension, diastolic CHF, chronic kidney disease, CAD and GERD presents to the emergency department for evaluation of altered mental status. The patient resides in a skilled nursing where they noted that she was having increasing fatigue, decreased level of consciousness and difficulty feeding herself. During her interview the patient is alert and oriented 3 and able to give me her own history. She reports abdominal and back pain. No nausea/vomiting/diarrhea. No chest pain. Patient does endorse shortness of breath that at times is so bad she cannot speak in complete sentences. No cough or congestion. No lateralizing signs/symptoms. Review of Systems Except as stated in HPI: all other systems reviewed are Neg Past Family Social History Past Medical History nephrolithiasis currently undergoing lithotripsy with Dr. Munguia,, hypertension , diastolic CHF, chronic kidney disease, CAD and GERD Past Surgical History Cardiac catheterization with stent placement Bilateral cataracts 4 hip surgeries 4 back surgeries 2 knee surgeries Reported Medications Reported Meds & Active Scripts Active Tramadol (Tramadol HCl) 50 Mg Tab 50 Mg PO Q6H PRN Ambien (Zolpidem Tartrate) 5 Mg Tab 5 Mg PO HS PRN Hydrocodone-Acetaminophen 10-325 mg Tab 1 Tab PO Q8HR PRN Reported [Protein Supplement] Multi-Vitamin Daily (Multiple Vitamin) 1 Tab Tab 1 Tab PO DAILY Vitamin D3 (Cholecalciferol) 1,000 Unit Tab 1,000 Units PO DAILY Senna-Tabs (Sennosides) 8.6 Mg Tab 17.2 Mg PO BID Topiramate ER (Topiramate) 50 Mg Cap 50 Mg PO BID Famotidine 20 Mg Tab 20 Mg PO BID Tylenol (Acetaminophen) 325 Mg Tab 325 Mg PO Q4H PRN Pravastatin 40 Mg Tab 40 Mg PO HS Lyrica (Pregabalin) 150 Mg Cap 1 Tab PO 6AM,10PM Cymbalta DR (Duloxetine HCl) 60 Mg Capdr 60 Mg PO DAILY Docusate Sodium 100 Mg Cap 100 Mg PO BID Polyethylene Glycol 3350 Powder (Polyethylene Glycol) 17 Gm Pow 17 Gm PO DAILY Levothyroxine (Levothyroxine Sodium) 150 Mcg Tab 150 Mcg PO DAILY Baclofen 10 Mg Tab 10 Mg PO BID Allergies: Coded Allergies: Sulfa (Sulfonamide Antibiotics) (Verified Allergy, Severe, 12/22/17) codeine (Verified Allergy, Severe, 12/22/17) morphine (Verified Allergy, Severe, 12/22/17) amoxicillin (Verified Allergy, Unknown, UNKNOWN, 12/22/17) Family History Father of lung cancer, mother with CAD Social History Negative for alcohol, tobacco and illicit drugs Physical Exam Vital Signs Vital Signs Date Time Temp Pulse Resp B/P (MAP) Pulse Ox O2 Delivery O2 Flow Rate FiO2 01/12/18 02:26 67 20 112/78 (89) 98 Nasal Cannula 2.00 01/11/18 23:31 72 18 110/77 (88) 97 Nasal Cannula 2.00 01/11/18 20:34 100.3 77 16 144/65 (91) 96 Physical Exam GENERAL: Elderly, female lying in bed SKIN: No rashes, ecchymoses or lesions. Cool and dry. HEAD: Atraumatic. Normocephalic. No temporal or scalp tenderness. EYES: Pupils equal round and reactive. Extraocular motions intact. No scleral icterus. No injection or drainage. ENT: Nose without bleeding, purulent drainage or septal hematoma. Throat without erythema, tonsillar hypertrophy or exudate. Uvula midline. Airway patent. NECK: Trachea midline. No JVD or lymphadenopathy. Supple, nontender, no meningeal signs. CARDIOVASCULAR: Regular rate and rhythm without murmurs, gallops, or rubs. RESPIRATORY: Breath sounds equal bilaterally. + rhonchi. GASTROINTESTINAL: Abdomen soft, non-tender, nondistended. No hepato-splenomegaly , or palpable masses. No guarding. MUSCULOSKELETAL: Extremities without clubbing, cyanosis, or edema. No joint tenderness, effusion, or edema noted. No calf tenderness. NEUROLOGICAL: Awake and alert. Cranial nerves II through XII intact. Motor and sensory grossly within normal limits. Normal speech. Laboratory Laboratory Tests Test 01/11/18 21:15 01/11/18 22:00 01/11/18 23:15 01/11/18 23:29 White Blood Count 13.7 Red Blood Count 4.25 Hemoglobin 12.2 Hematocrit 36.9 Mean Corpuscular Volume 87.0 Mean Corpuscular Hemoglobin 28.8 Mean Corpuscular Hemoglobin Concent 33.1 Red Cell Distribution Width 16.1 Platelet Count 205 Mean Platelet Volume 9.7 Neutrophils (%) (Auto) 69.0 Lymphocytes (%) (Auto) 17.7 Monocytes (%) (Auto) 11.0 Eosinophils (%) (Auto) 1.7 Basophils (%) (Auto) 0.6 Neutrophils # (Auto) 9.4 Lymphocytes # (Auto) 2.4 Monocytes # (Auto) 1.5 Eosinophils # (Auto) 0.2 Basophils # (Auto) 0.1 CBC Comment DIFF FINAL Differential Comment Prothrombin Time 10.1 Prothromb Time International Ratio 1.0 Activated Partial Thromboplast Time 28.7 Lactic Acid Level 0.9 B-Type Natriuretic Peptide 33 Ammonia 46 Urine Color YELLOW Urine Turbidity CLOUDY Urine pH 7.0 Urine Specific [place] 1.016 Urine Protein 100 Urine Glucose (UA) NEG Urine Ketones NEG Urine Occult Blood SMALL Urine Nitrite NEG Urine Bilirubin NEG Urine Urobilinogen LESS THAN 2.0 Urine Leukocyte Esterase LARGE Urine RBC 15 Urine WBC Urine WBC Clumps MANY Urine Squamous Epithelial Cells 2 Urine Transitional Epithelial Cells <1 Urine Bacteria MANY Microscopic Urinalysis Comment CULTURE INDICATED Blood Urea Nitrogen 28 Creatinine 1.00 Random Glucose 140 Total Protein 7.5 Albumin 2.5 Calcium Level 8.5 Magnesium Level 2.3 Alkaline Phosphatase 94 Aspartate Amino Transf (AST/SGOT) 11 Alanine Aminotransferase (ALT/SGPT) 15 Total Bilirubin 0.3 Sodium Level 144 Potassium Level 3.6 Chloride Level 110 Carbon Dioxide Level 24.6 Anion Gap 9 Estimat Glomerular Filtration Rate 53 Total Creatine Kinase 25 Troponin I LESS THAN 0.02 Lipase 65 Thyroid Stimulating Hormone 3rd Gen 0.063 Date/Time Source Procedure Growth Status 01/11/18 21:20 Blood Peripheral Aerobic Blood Culture Pending Received 01/11/18 21:20 Blood Peripheral Anaerobic Blood Culture Pending Received 01/11/18 23:15 Urine Clean Catch Urine Culture Pending Received Result Diagram: 01/11/18211401/11/18 8228 Caprini VTE Risk Assessment Caprini VTE Risk Assessment: Mod/High Risk (score >= 2) Caprini Risk Assessment Model Point Value = 1 Point Value = 2 Point Value = 3 Point Value = 5 Age 41-60 Minor surgery BMI > 25 kg/m2 Swollen legs Varicose veins or History of unexplained or recurrent spontaneous Oral contraceptives or hormone replacement Sepsis (< 1 month) Serious lung disease, including pneumonia (< 1 month) Abnormal pulmonary function Acute myocardial infarction Congestive heart failure (< 1 month) History of inflammatory bowel disease Medical patient at bed rest Age 61-74 Arthroscopic surgery Major open surgery (> 45 min) Laparoscopic surgery (> 45 min) Malignancy Confined to bed (> 72 hours) Immobilizing plaster cast Central venous access Age >= 75 History of VTE Family history of VTE Factor V Leiden Prothrombin [id number] Lupus anticoagulant Anticardiolipin antibodies Elevated serum homocysteine Heparin-induced thrombocytopenia Other congenital or acquired thrombophilia Stroke (< 1 month) Elective arthroplasty Hip, pelvis, or leg fracture Acute spinal cord injury (< 1 month) Prophylaxis Regimen Total Risk Factor Score Risk Level Prophylaxis Regimen 0-1 Low Early ambulation 2 Moderate Order ONE of the following: *Sequential Compression Device (SCD) *Heparin 5000 units SQ BID 3-4 Higher Order ONE of the following medications: *Heparin 5000 units SQ TID *Enoxaparin/Lovenox 40 mg SQ daily (WT < 150 kg, CrCl > 30 mL/min) *Enoxaparin/Lovenox 30 mg SQ daily (WT < 150 kg, CrCl > 10-29 mL/min) *Enoxaparin/Lovenox 30 mg SQ BID (WT < 150 kg, CrCl > 30 mL/min) AND/OR *Sequential Compression Device (SCD) 5 or more Highest Order ONE of the following medications: *Heparin 5000 units SQ TID (Preferred with Epidurals) *Enoxaparin/Lovenox 40 mg SQ daily (WT < 150 kg, CrCl > 30 mL/min) *Enoxaparin/Lovenox 30 mg SQ daily (WT < 150 kg, CrCl > 10-29 mL/min) *Enoxaparin/Lovenox 30 mg SQ BID (WT < 150 kg, CrCl > 30 mL/min) AND *Sequential Compression Device (SCD) Assessment and Plan Assessment and Plan Assessment/plan: 1. UTI/hydronephrosis/renal calculi Patient with known history of staghorn calculus, currently undergoing treatment with Dr. Munguia CT of the abdomen/pelvis significant for right ureteral stone measuring 7 mm with associated moderate hydronephrosis UA consistent with urinary tract infection Urine culture pending Levaquin Urology consulted, appreciate assistance 2. Pneumonia Chest x-ray significant for parenchymal changes on the left, personally reviewed Antibiotics as above 3. Hypertension/CHF/GERD Continue home medications 4. Chronic pain Continue tramadol and Lyrica 5. Hypothyroidism Continue home Synthroid FEN N.p.o. Electrolytes: Monitor and replete as needed NS at 70 cc/hour Holding pharmacologic anticoagulation for possible intervention Physician Certification 2 Midnight Certification Type: Admission for Inpatient Services Order for Inpatient Services The services are ordered in accordance with Medicare regulations or non- Medicare payer requirements, as applicable. In the case of services not specified as inpatient-only, they are appropriately provided as inpatient services in accordance with the 2-midnight benchmark. Estimated LOS (days): 2 2 days is the estimated time the patient will need to remain in the hospital, assuming treatment plan goals are met and no additional complications. Post-Hospital Plan: Not yet determined Morelia Sykes MD January 12, 2018 04:04
[2018-01-12] MEDS: SODIUM CHLOR 0.9% 1000 ML INJ 1,000 ML IV SCH ×2 (04:05→18:07)
[2018-01-12] MEDS ORDERED: LEVOTHYROXINE SODIUM 150 MCG TAB PO SCH (07:00)
[2018-01-12] MEDS: TOPIRAMATE 25 MG TAB PO SCH ×2 (09:39→22:45)
[2018-01-12] MEDS: SODIUM CHLORIDE 0.9% FLUSH 10 ML FLUSH IV FLUSH SCH ×2 (09:39→22:45)
[2018-01-12] MEDS: DULoxetine HCl DR 60 MG CAP PO SCH (09:45)
[2018-01-12] MEDS: DOCUSATE SODIUM 50 MG/SENNA 8.6 MG TAB PO SCH ×2 (09:45→22:46)
[2018-01-12] MEDS: PREGABALIN 75 MG CAP PO SCH (09:46)
[2018-01-12] MEDS: traMADol HCL 50 MG TAB PO PRN ×2 (11:46→17:47)
--- NOTE | 2018-01-12 14:04 | MB ---
cc: oY Schilling DO DATE: 01/12/2018 HISTORY OF PRESENT ILLNESS: Ms. Mcfarlane is a 77-year-old female who has a history of nephrolithiasis under the care of Dr. Munguia. Previously, she has undergone lithotripsy on 12/22/2017 for a right distal ureteral calculus. CT scan upon the emergency room demonstrates a 7 or 8 mm distal right ureteral calculus, which is still present. She has mild pain complaints, but denies any nausea or vomiting. She also has been complaining of some shortness of breath at times. She denies chest pain or shortness of breath. PAST MEDICAL HISTORY: Noted for nephrolithiasis with prior cystoscopy and extracorporeal shock wave lithotripsy. She has a history of hypertension, CHF, chronic kidney disease, GERD. PAST SURGICAL HISTORY: Recent as ESWL, bilateral cataracts, cardiac catheterization, hip surgery, back surgery, as well as knee surgery. MEDICATIONS: Refer to the chart. ALLERGIES: SULFA, CODEINE, MORPHINE AND AMOXICILLIN. FAMILY HISTORY: Noted for lung cancer and heart disease. SOCIAL HISTORY: She denies smoking, drinking or using drugs. REVIEW OF SYSTEMS: No shortness of breath. Denies chest pain. Denies abdominal pain at present. Denies nausea or vomiting. Does have some gait disturbances. Denies bleeding disorders. Denies psychiatric problems. Denies skin lesions. The remaining review of systems were reviewed and were negative. PHYSICAL EXAMINATION: VITAL SIGNS: Temperature 98.3, heart rate 66, respiratory rate 16, 121/58 is her blood pressure. GENERAL: She is an obese 77-year-old female in no acute distress. HEENT: Normocephalic, atraumatic. Pupils equal, round, regular and reactive to light. Extraocular movements intact. NECK: Supple. HEART: Regular rate and rhythm. LUNGS: Clear bilaterally. ABDOMEN: Soft, nontender, nondistended. GENITOURINARY: Normal female external genitalia. EXTREMITIES: Show no evidence of cyanosis, clubbing or edema. NEUROLOGIC: Cranial nerves 2-12 are intact. LABORATORY DATA: White count 13.7, hemoglobin 12.2, hematocrit 36.9, platelet count of 205. Sodium 144, potassium 3.6, chloride 110, CO2 24.6, BUN of 28, creatinine 1.0, glucose 140. Again, CT scan with a 7-8 mm distal right ureteral calculus causing obstruction. ASSESSMENT: This is a 77-year-old female admitted with findings of nephrolithiasis and obstructing right ureteral stone. PLAN: We will for a cystoscopy, right double-J stent insertion in the a.m., n.p.o. after midnight. Thank you for the consult and allowing me to participate in the care of this patient. DO JOHANN Boo/NAPOLEON , 01:48 PM , 02:03 PM
--- NOTE | 2018-01-12 14:07 | EKG ---
Date Performed: 01/11/2018 Time Performed: 20:58:18 PTAGE: 77 years EKG: Sinus rhythm NORMAL ECG NO PREVIOUS TRACING DOCTOR: Reji Olson Interpretating Date/Time 01/12/2018 14:05:01
--- NOTE | 2018-01-12 16:01 | HHI.PR ---
Subjective Remarks 77-year-old female with a past medical history significant for nephrolithiasis currently undergoing lithotripsy with Dr. Munguia, hypertension, diastolic CHF, chronic kidney disease, CAD and GERD presents to the emergency department for evaluation of altered mental status. The patient resides in a skilled nursing where they noted that she was having increasing fatigue, decreased level of consciousness and difficulty feeding herself. During her interview the patient is alert and oriented 3 and able to give me her own history. She reports abdominal and back pain. No nausea/vomiting/diarrhea. No chest pain. Patient does endorse shortness of breath that at times is so bad she cannot speak in complete sentences. No cough or congestion. No lateralizing signs/symptoms. PATIENT TO HAVE SURGERY WITH DR WOO OF UROLOGY REGARDING HYDRONEPHROSIS AND NEED FOR URINARY STENT MODERATE RISK FOR SURGERY Objective Vitals Vital Signs Date Time Temp Pulse Resp B/P (MAP) Pulse Ox O2 Delivery O2 Flow Rate FiO2 01/12/18 12:00 98.4 67 16 135/73 (93) 95 01/12/18 08:47 98.3 66 16 121/58 (79) 96 01/12/18 07:39 62 01/12/18 06:06 98.4 66 20 129/56 (80) 98 01/12/18 05:52 01/12/18 02:26 67 20 112/78 (89) 98 Nasal Cannula 2.00 01/11/18 23:31 72 18 110/77 (88) 97 Nasal Cannula 2.00 01/11/18 20:34 100.3 77 16 144/65 (91) 96 I/O 01/11/18 01/11/18 01/11/18 01/12/18 01/12/18 01/12/18 07:00 15:00 23:00 07:00 15:00 23:00 Intake Total 250 ml 150 ml Balance 250 ml 150 ml Intake IV Total 250 ml 150 ml Result Diagram: 01/11/184 01/11/18 4074 Other Results Laboratory Tests Test 01/11/18 21:15 01/11/18 22:00 01/11/18 23:15 01/11/18 23:29 White Blood Count 13.7 TH/MM3 Red Blood Count 4.25 MIL/MM3 Hemoglobin 12.2 GM/DL Hematocrit 36.9 % Mean Corpuscular Volume 87.0 FL Mean Corpuscular Hemoglobin 28.8 PG Mean Corpuscular Hemoglobin Concent 33.1 % Red Cell Distribution Width 16.1 % Platelet Count 205 TH/MM3 Mean Platelet Volume 9.7 FL Neutrophils (%) (Auto) 69.0 % Lymphocytes (%) (Auto) 17.7 % Monocytes (%) (Auto) 11.0 % Eosinophils (%) (Auto) 1.7 % Basophils (%) (Auto) 0.6 % Neutrophils # (Auto) 9.4 TH/MM3 Lymphocytes # (Auto) 2.4 TH/MM3 Monocytes # (Auto) 1.5 TH/MM3 Eosinophils # (Auto) 0.2 TH/MM3 Basophils # (Auto) 0.1 TH/MM3 CBC Comment DIFF FINAL Differential Comment Prothrombin Time 10.1 SEC Prothromb Time International Ratio 1.0 RATIO Activated Partial Thromboplast Time 28.7 SEC Lactic Acid Level 0.9 mmol/L B-Type Natriuretic Peptide 33 PG/ML Ammonia 46 MCMOL/L Urine Color YELLOW Urine Turbidity CLOUDY Urine pH 7.0 Urine Specific [place] 1.016 Urine Protein 100 mg/dL Urine Glucose (UA) NEG mg/dL Urine Ketones NEG mg/dL Urine Occult Blood SMALL Urine Nitrite NEG Urine Bilirubin NEG Urine Urobilinogen LESS THAN 2.0 MG/DL Urine Leukocyte Esterase LARGE Urine RBC 15 /hpf Urine WBC /hpf Urine WBC Clumps MANY Urine Squamous Epithelial Cells 2 /hpf Urine Transitional Epithelial Cells <1 /hpf Urine Bacteria MANY /hpf Microscopic Urinalysis Comment CULTURE INDICATED Blood Urea Nitrogen 28 MG/DL Creatinine 1.00 MG/DL Random Glucose 140 MG/DL Total Protein 7.5 GM/DL Albumin 2.5 GM/DL Calcium Level 8.5 MG/DL Magnesium Level 2.3 MG/DL Alkaline Phosphatase 94 U/L Aspartate Amino Transf (AST/SGOT) 11 U/L Alanine Aminotransferase (ALT/SGPT) 15 U/L Total Bilirubin 0.3 MG/DL Sodium Level 144 MEQ/L Potassium Level 3.6 MEQ/L Chloride Level 110 MEQ/L Carbon Dioxide Level 24.6 MEQ/L Anion Gap 9 MEQ/L Estimat Glomerular Filtration Rate 53 ML/MIN Total Creatine Kinase 25 U/L Troponin I LESS THAN 0.02 NG/ML Lipase 65 U/L Thyroid Stimulating Hormone 3rd Gen 0.063 uIU/ML Imaging Last Impressions Abdomen/[place] [address] Signed Impressions: CONCLUSION: 1. There is moderate hydronephrosis in the right kidney due to a distal ureter al stone almost 7 mm in size. Additional stones in the right kidney. 2. Staghorn calculus in the left kidney with numerous other stones within the calyces on the left side and multiple fragmented stones within the left renal p rahda. 3. 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 Chest X-Ray 01/11/182036 Signed Impressions: CONCLUSION: Mild congestive failure with minimal parenchymal changes on the left. Inflammat ory process would be consideration. Objective Remarks GENERAL: Elderly, female lying in bed SKIN: No rashes, ecchymoses or lesions. Cool and dry. Decub ulcer HEAD: Atraumatic. Normocephalic. No temporal or scalp tenderness. EYES: Pupils equal round and reactive. Extraocular motions intact. No scleral icterus. No injection or drainage. ENT: Nose without bleeding, purulent drainage or septal hematoma. Throat without erythema, tonsillar hypertrophy or exudate. Uvula midline. Airway patent. NECK: Trachea midline. No JVD or lymphadenopathy. Supple, nontender, no meningeal signs. CARDIOVASCULAR: Regular rate and rhythm without murmurs, gallops, or rubs. RESPIRATORY: Breath sounds equal bilaterally. + rhonchi. GASTROINTESTINAL: Abdomen soft, non-tender, nondistended. No hepato-splenomegaly , or palpable masses. No guarding. MUSCULOSKELETAL: Extremities without clubbing, cyanosis, or edema. No joint tenderness, effusion, or edema noted. No calf tenderness. Generalized weakness bilateral lower extremities NEUROLOGICAL: Awake and alert. Cranial nerves II through XII intact. Motor and sensory grossly within normal limits. Normal speech. Insight and judgment is good Mood and behavior somewhat Medications and IVs Current Medications Sodium Chloride 250 ml @ 250 mls/hr BOLUS ONCE IV Last administered on at 21:24; Start 01/11/18 at 20:45; Stop 01/11/18 at 21:44; Status DC Levofloxacin/ Dextrose 150 ml @ 100 mls/hr ONCE ONCE IV Last administered on 01/11/18at 22:53; Start 01/11/18 at 22:30; Stop 01/11/18 at 23:59; Status DC Iohexol (Omnipaque 350 Inj) 80 ml STK-MED ONCE IVCONTRAST Last administered on 01/11/18at 23:50; Start 01/11/18 at 23:50; Stop 01/12/18 at 01:58; Status DC Levofloxacin/ Dextrose 150 ml @ 100 mls/hr Q24H IV ; Start 01/12/18 at 22:30 Sodium Chloride 1,000 ml @ 70 mls/hr [id number] IV Last administered on at 04:05; Start 01/12/18 at 03:49 Sodium Chloride (NS Flush) 2 ml UNSCH PRN IV FLUSH FLUSH AFTER USING IV ACCESS ; Start 01/12/18 at 04:00 Sodium Chloride (NS Flush) 2 ml BID IV FLUSH Last administered on 01/12/18at 09: 39; Start 01/12/18 at 09:00 Acetaminophen (Tylenol) 650 mg Q4H PRN PO TEMP > 100.4; Start 01/12/18 at 04:00 Ondansetron HCl (Zofran Inj) 4 mg Q6H PRN IVP NAUSEA OR VOMITING Last administered on 01/12/18at 09:45; Start 01/12/18 at 04:00 Naloxone HCl (Narcan Inj) 0.4 mg UNSCH PRN IV PUSH SEE LABEL COMMENTS; Start at 04:00 Senna/Docusate Sodium (Megan-Colace) 1 tab BID PO Last administered on at 09:45; Start 01/12/18 at 09:00 Magnesium Hydroxide (Milk Of Magnesia Liq) 30 ml Q12H PRN PO Mild constipation ; Start 01/12/18 at 04:00 Sennosides (Senokot) 17.2 mg Q12H PRN PO Moderate constipation; Start 01/12/18 at 04:00 Bisacodyl (Dulcolax Supp) 10 mg DAILY PRN RECTAL SEVERE CONSITIPATION/ IF NPO ; Start 01/12/18 at 04:00 Lactulose (Lactulose Liq) 30 ml DAILY PRN PO SEVERE CONSITIPATION/ IF PO; Start 01/12/18 at 04:00 Duloxetine HCl (Cymbalta Dr) 60 mg DAILY PO Last administered on 01/12/18at 09: 45; Start 01/12/18 at 09:00 Levothyroxine Sodium (Synthroid) 150 mcg DAILY@0700 PO Last administered on at 06:48; Start 01/12/18 at 07:00 Pravastatin Sodium (Pravachol) 40 mg HS PO ; Start 01/12/18 at 21:00 Pregabalin (Lyrica) 150 mg DAILY PO Last administered on 01/12/18at 09:46; Start 01/12/18 at 09:00 Tramadol HCl (Ultram) 50 mg Q6H PRN PO PAIN Last administered on 01/12/18at 11: 46; Start 01/12/18 at 04:00 Topiramate (Topamax) 50 mg BID PO Last administered on 01/12/18at 09:39; Start 01/12/18 at 09:00 Pneumococcal Polyvalent Vaccine (Pneumovax-23 Inj) 25 mcg ONCE ONCE IM ; Start 01/13/18 at 10:00; Stop 01/13/18 at 10:01 A/P Assessment and Plan 1. UTI/hydronephrosis/renal calculi Patient with known history of staghorn calculus, currently undergoing treatment with Dr. Munguia CT of the abdomen/pelvis significant for right ureteral stone measuring 7 mm with associated moderate hydronephrosis UA consistent with urinary tract infection Urine culture pending Levaquin Urology consulted, appreciate assistance -Patient is scheduled to go for stenting due to hydronephrosis 2. Pneumonia Chest x-ray significant for parenchymal changes on the left, personally reviewed Antibiotics as above Suspect may be due to scar also 3. Hypertension/CHF/GERD Continue home medications 4. Chronic pain Continue tramadol and Lyrica 5. Hypothyroidism Continue home Synthroid-we will decrease dosage FEN N.p.o. Electrolytes: Monitor and replete as needed NS at 70 cc/hour Holding pharmacologic anticoagulation for possible intervention Discharge Planning Will need surgery Hal Duval DO January 12, 2018 16:01
[2018-01-12] MEDS ORDERED: LEVOFLOXACIN 750 MG PREMIX INJ 150 ML IV SCH (22:30)
[2018-01-12] MEDS: FAMOTIDINE 20 MG TAB PO SCH (22:44)
[2018-01-12] MEDS: PRAVASTATIN SOD 40 MG TAB PO SCH (22:44)
[2018-01-12] MEDS: BACLOFEN 10 MG TAB PO SCH (22:45)
[2018-01-13] VITALS (12 sets, daily range): BP systolic 100–129; BP diastolic 53–70; PULSE 54–74; RESP 14–20; TEMP 98–98.8; O2SAT 96–98
[2018-01-13] MEDS: traMADol HCL 50 MG TAB PO PRN ×3 (01:46→21:10)
[2018-01-13 07:04] LABS: AUTOMATED NEUTROPHIL # 6.8 TH/MM3 (1.8-7.7); BASOPHIL # 0.1 TH/MM3 (0-0.2); BASOPHIL % 0.8 % (0.0-2.0); EOSINOPHIL # 0.3 TH/MM3 (0-0.4); EOSINOPHIL % 2.7 % (0.0-4.0); HEMATOCRIT 34.3 % (35.0-46.0); HEMOGLOBIN 10.9 GM/DL (11.6-15.3); LYMPH % 24.8 % (9.0-44.0); LYMPHOCYTE # 2.8 TH/MM3 (1.0-4.8); MEAN CELL VOLUME 88.4 FL (80.0-100.0); MEAN CORPUSCULAR HEMOGLOBIN 28.2 PG (27.0-34.0); MEAN CORPUSCULAR HGB CONC 31.9 % (32.0-36.0); MEAN PLATELET VOLUME 10.4 FL (7.0-11.0); MONO % 11.9 % (0.0-8.0); MONOCYTE # 1.4 TH/MM3 (0-0.9); NEUT % 59.8 % (16.0-70.0); PLATELET COUNT 188 TH/MM3 (150-450); RED BLOOD COUNT 3.88 MIL/MM3 (4.00-5.30); RED CELL DISTRIBUTION WIDTH 16.3 % (11.6-17.2); WHITE BLOOD COUNT 11.5 TH/MM3 (4.0-11.0)
[2018-01-13 07:13] LABS: ALBUMIN 2.2 GM/DL (3.4-5.0); AST (GOT) 14 U/L (15-37); BICARBONATE 21.5 MEQ/L (21.0-32.0); BLOOD UREA NITROGEN 19 MG/DL (7-18); CALCIUM 8.8 MG/DL (8.5-10.1); CHLORIDE 110 MEQ/L (98-107); CREATININE 0.92 MG/DL (0.50-1.00); GLOMERULAR FILTRATION RATE 59 ML/MIN (>89); GLUCOSE,RANDOM 81 MG/DL (74-106); MAGNESIUM 2.3 MG/DL (1.5-2.5); SODIUM (NA) 142 MEQ/L (136-145)
[2018-01-13 07:23] LABS: ALKALINE PHOSPHATASE 82 U/L (45-117); ALT (GPT) 12 U/L (10-53); PHOSPHORUS 2.6 MG/DL (2.5-4.9); TOTAL BILIRUBIN ADULT 0.4 MG/DL (0.2-1.0); TOTAL PROTEIN 6.7 GM/DL (6.4-8.2)
[2018-01-13] MEDS: LEVOTHYROXINE SODIUM 125 MCG TAB PO SCH (07:33)
[2018-01-13] MEDS: SODIUM CHLOR 0.9% 1000 ML INJ 1,000 ML IV SCH ×3 (08:25→21:12)
[2018-01-13] MEDS: PREGABALIN 75 MG CAP PO SCH ×2 (08:37→21:08)
[2018-01-13] MEDS: FAMOTIDINE 20 MG TAB PO SCH ×2 (08:38→21:10)
[2018-01-13] MEDS: CHOLECALCIFEROL (VIT D3) 1000 UNIT TAB PO SCH (08:38)
[2018-01-13] MEDS: DULoxetine HCl DR 60 MG CAP PO SCH (08:39)
[2018-01-13] MEDS: BACLOFEN 10 MG TAB PO SCH ×2 (08:39→21:10)
[2018-01-13] MEDS: MULTIVITAMIN TAB PO SCH (08:39)
[2018-01-13] MEDS: TOPIRAMATE 25 MG TAB PO SCH (08:39)
[2018-01-13] MEDS: SODIUM CHLORIDE 0.9% FLUSH 10 ML FLUSH IV FLUSH SCH ×2 (09:00→21:12)
[2018-01-13] MEDS: DOCUSATE SODIUM 50 MG/SENNA 8.6 MG TAB PO SCH ×2 (09:00→21:00)
[2018-01-13] MEDS ORDERED: NON-FORMULARY DRUG (Multiple Vitamin (Multi-Vitamin Daily) 1 TAB) PO SCH (09:00)
[2018-01-13] MEDS ORDERED: PNEUMOCOCCAL POLYVALENT INJ 25 MCG/0.5 ML SYR IM ONE (10:00)
--- NOTE | 2018-01-13 10:49 | HHI.PR ---
Subjective Remarks 77-year-old female with a past medical history significant for nephrolithiasis currently undergoing lithotripsy with Dr. Munguia, hypertension, diastolic CHF, chronic kidney disease, CAD and GERD presents to the emergency department for evaluation of altered mental status. The patient resides in a senior care where they noted that she was having increasing fatigue, decreased level of consciousness and difficulty feeding herself. During her interview the patient is alert and oriented 3 and able to give me her own history. She reports abdominal and back pain. No nausea/vomiting/diarrhea. No chest pain. Patient does endorse shortness of breath that at times is so bad she cannot speak in complete sentences. No cough or congestion. No lateralizing signs/symptoms. PATIENT TO HAVE SURGERY WITH DR WOO OF UROLOGY REGARDING HYDRONEPHROSIS AND NEED FOR URINARY STENT MODERATE RISK FOR SURGERY 01-13 PATIENT IS SCHEDULED TO GO FOR UROLOGICAL SURGERY TODAY DW RN AND PT AM LABS ADJUST MEDS REPLACE POTASSIUM Objective Vitals Vital Signs Date Time Temp Pulse Resp B/P (MAP) Pulse Ox O2 Delivery O2 Flow Rate FiO2 01/13/18 08:00 98.6 66 18 100/60 (73) 96 01/13/18 03:02 98.8 68 20 112/67 (82) 96 01/13/18 03:00 74 01/13/18 02:50 20 01/12/18 23:47 98.5 74 20 111/56 (74) 94 01/12/18 23:00 70 01/12/18 20:30 98.4 72 20 123/67 (85) 94 01/12/18 19:00 73 01/12/18 17:00 70 01/12/18 16:00 72 01/12/18 16:00 98.5 69 16 110/64 (79) 95 01/12/18 15:00 72 01/12/18 14:00 74 01/12/18 13:00 70 01/12/18 12:00 98.4 67 16 135/73 (93) 95 01/12/18 12:00 68 01/12/18 11:00 72 I/O 01/12/18 01/12/18 01/12/18 01/13/18 01/13/18 01/13/18 07:00 15:00 23:00 07:00 15:00 23:00 Intake Total 150 ml 1200 ml Balance 150 ml 1200 ml Intake Oral 1200 ml IV Total 150 ml # Voids 3 # Bowel Movements 1 Result Diagram: 01/13/18 0514 01/13/18 0514 Other Results Laboratory Tests Test 01/11/18 21:15 01/11/18 22:00 01/11/18 23:15 01/11/18 23:29 White Blood Count 13.7 TH/MM3 Red Blood Count 4.25 MIL/MM3 Hemoglobin 12.2 GM/DL Hematocrit 36.9 % Mean Corpuscular Volume 87.0 FL Mean Corpuscular Hemoglobin 28.8 PG Mean Corpuscular Hemoglobin Concent 33.1 % Red Cell Distribution Width 16.1 % Platelet Count 205 TH/MM3 Mean Platelet Volume 9.7 FL Neutrophils (%) (Auto) 69.0 % Lymphocytes (%) (Auto) 17.7 % Monocytes (%) (Auto) 11.0 % Eosinophils (%) (Auto) 1.7 % Basophils (%) (Auto) 0.6 % Neutrophils # (Auto) 9.4 TH/MM3 Lymphocytes # (Auto) 2.4 TH/MM3 Monocytes # (Auto) 1.5 TH/MM3 Eosinophils # (Auto) 0.2 TH/MM3 Basophils # (Auto) 0.1 TH/MM3 CBC Comment DIFF FINAL Differential Comment Prothrombin Time 10.1 SEC Prothromb Time International Ratio 1.0 RATIO Activated Partial Thromboplast Time 28.7 SEC Lactic Acid Level 0.9 mmol/L B-Type Natriuretic Peptide 33 PG/ML Ammonia 46 MCMOL/L Urine Color YELLOW Urine Turbidity CLOUDY Urine pH 7.0 Urine Specific [place] 1.016 Urine Protein 100 mg/dL Urine Glucose (UA) NEG mg/dL Urine Ketones NEG mg/dL Urine Occult Blood SMALL Urine Nitrite NEG Urine Bilirubin NEG Urine Urobilinogen LESS THAN 2.0 MG/DL Urine Leukocyte Esterase LARGE Urine RBC 15 /hpf Urine WBC /hpf Urine WBC Clumps MANY Urine Squamous Epithelial Cells 2 /hpf Urine Transitional Epithelial Cells <1 /hpf Urine Bacteria MANY /hpf Microscopic Urinalysis Comment CULTURE INDICATED Blood Urea Nitrogen 28 MG/DL Creatinine 1.00 MG/DL Random Glucose 140 MG/DL Total Protein 7.5 GM/DL Albumin 2.5 GM/DL Calcium Level 8.5 MG/DL Magnesium Level 2.3 MG/DL Alkaline Phosphatase 94 U/L Aspartate Amino Transf (AST/SGOT) 11 U/L Alanine Aminotransferase (ALT/SGPT) 15 U/L Total Bilirubin 0.3 MG/DL Sodium Level 144 MEQ/L Potassium Level 3.6 MEQ/L Chloride Level 110 MEQ/L Carbon Dioxide Level 24.6 MEQ/L Anion Gap 9 MEQ/L Estimat Glomerular Filtration Rate 53 ML/MIN Total Creatine Kinase 25 U/L Troponin I LESS THAN 0.02 NG/ML Lipase 65 U/L Thyroid Stimulating Hormone 3rd Gen 0.063 uIU/ML Test 01/13/18 05:14 White Blood Count 11.5 TH/MM3 Red Blood Count 3.88 MIL/MM3 Hemoglobin 10.9 GM/DL Hematocrit 34.3 % Mean Corpuscular Volume 88.4 FL Mean Corpuscular Hemoglobin 28.2 PG Mean Corpuscular Hemoglobin Concent 31.9 % Red Cell Distribution Width 16.3 % Platelet Count 188 TH/MM3 Mean Platelet Volume 10.4 FL Neutrophils (%) (Auto) 59.8 % Lymphocytes (%) (Auto) 24.8 % Monocytes (%) (Auto) 11.9 % Eosinophils (%) (Auto) 2.7 % Basophils (%) (Auto) 0.8 % Neutrophils # (Auto) 6.8 TH/MM3 Lymphocytes # (Auto) 2.8 TH/MM3 Monocytes # (Auto) 1.4 TH/MM3 Eosinophils # (Auto) 0.3 TH/MM3 Basophils # (Auto) 0.1 TH/MM3 CBC Comment DIFF FINAL Differential Comment Blood Urea Nitrogen 19 MG/DL Creatinine 0.92 MG/DL Random Glucose 81 MG/DL Total Protein 6.7 GM/DL Albumin 2.2 GM/DL Calcium Level 8.8 MG/DL Phosphorus Level 2.6 MG/DL Magnesium Level 2.3 MG/DL Alkaline Phosphatase 82 U/L Aspartate Amino Transf (AST/SGOT) 14 U/L Alanine Aminotransferase (ALT/SGPT) 12 U/L Total Bilirubin 0.4 MG/DL Sodium Level 142 MEQ/L Potassium Level 3.4 MEQ/L Chloride Level 110 MEQ/L Carbon Dioxide Level 21.5 MEQ/L Anion Gap 11 MEQ/L Estimat Glomerular Filtration Rate 59 ML/MIN Free Thyroxine 1.10 NG/DL Thyroid Stimulating Hormone 3rd Gen 0.190 uIU/ML Imaging Last Impressions Abdomen/Pelvis CT 01/12/18 3427 Signed Impressions: CONCLUSION: 1. There is moderate hydronephrosis in the right kidney due to a distal ureter al stone almost 7 mm in size. Additional stones in the right kidney. 2. Staghorn calculus in the left kidney with numerous other stones within the calyces on the left side and multiple fragmented stones within the left renal p radha. 3. 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 Chest X-Ray 01/11/182036 Signed Impressions: CONCLUSION: Mild congestive failure with minimal parenchymal changes on the left. Inflammat ory process would be consideration. Objective Remarks GENERAL: Elderly, female lying in bed SKIN: No rashes, ecchymoses or lesions. Cool and dry. Decub ulcer HEAD: Atraumatic. Normocephalic. No temporal or scalp tenderness. EYES: Pupils equal round and reactive. Extraocular motions intact. No scleral icterus. No injection or drainage. ENT: Nose without bleeding, purulent drainage or septal hematoma. Throat without erythema, tonsillar hypertrophy or exudate. Uvula midline. Airway patent. NECK: Trachea midline. No JVD or lymphadenopathy. Supple, nontender, no meningeal signs. CARDIOVASCULAR: Regular rate and rhythm without murmurs, gallops, or rubs. RESPIRATORY: Breath sounds equal bilaterally. + rhonchi. GASTROINTESTINAL: Abdomen soft, non-tender, nondistended. No hepato-splenomegaly , or palpable masses. No guarding. MUSCULOSKELETAL: Extremities without clubbing, cyanosis, or edema. No joint tenderness, effusion, or edema noted. No calf tenderness. Generalized weakness bilateral lower extremities NEUROLOGICAL: Awake and alert. Cranial nerves II through XII intact. Motor and sensory grossly within normal limits. Normal speech. Insight and judgment is good Mood and behavior somewhat Medications and IVs Current Medications Sodium Chloride 250 ml @ 250 mls/hr BOLUS ONCE IV Last administered on at 21:24; Start 01/11/18 at 20:45; Stop 01/11/18 at 21:44; Status DC Levofloxacin/ Dextrose 150 ml @ 100 mls/hr ONCE ONCE IV Last administered on 01/11/18at 22:53; Start 01/11/18 at 22:30; Stop 01/11/18 at 23:59; Status DC Iohexol (Omnipaque 350 Inj) 80 ml STK-MED ONCE IVCONTRAST Last administered on 01/11/18at 23:50; Start 01/11/18 at 23:50; Stop 01/12/18 at 01:58; Status DC Levofloxacin/ Dextrose 150 ml @ 100 mls/hr Q24H IV Last administered on at 22:45; Start 01/12/18 at 22:30 Sodium Chloride 1,000 ml @ 70 mls/hr [id number] IV Last administered on at 04:05; Start 01/12/18 at 03:49 Sodium Chloride (NS Flush) 2 ml UNSCH PRN IV FLUSH FLUSH AFTER USING IV ACCESS ; Start 01/12/18 at 04:00 Sodium Chloride (NS Flush) 2 ml BID IV FLUSH Last administered on 01/13/18at 09: 00; Start 01/12/18 at 09:00 Acetaminophen (Tylenol) 650 mg Q4H PRN PO TEMP > 100.4; Start 01/12/18 at 04:00 Ondansetron HCl (Zofran Inj) 4 mg Q6H PRN IVP NAUSEA OR VOMITING Last administered on 01/12/18at 09:45; Start 01/12/18 at 04:00 Naloxone HCl (Narcan Inj) 0.4 mg UNSCH PRN IV PUSH SEE LABEL COMMENTS; Start at 04:00 Senna/Docusate Sodium (Megan-Colace) 1 tab BID PO Last administered on at 09:45; Start 01/12/18 at 09:00 Magnesium Hydroxide (Milk Of Magnesia Liq) 30 ml Q12H PRN PO Mild constipation ; Start 01/12/18 at 04:00 Sennosides (Senokot) 17.2 mg Q12H PRN PO Moderate constipation; Start 01/12/18 at 04:00 Bisacodyl (Dulcolax Supp) 10 mg DAILY PRN RECTAL SEVERE CONSITIPATION/ IF NPO ; Start 01/12/18 at 04:00 Lactulose (Lactulose Liq) 30 ml DAILY PRN PO SEVERE CONSITIPATION/ IF PO; Start 01/12/18 at 04:00 Duloxetine HCl (Cymbalta Dr) 60 mg DAILY PO Last administered on 01/13/18at 08: 39; Start 01/12/18 at 09:00 Levothyroxine Sodium (Synthroid) 150 mcg DAILY@0700 PO Last administered on at 06:48; Start 01/12/18 at 07:00; Stop 01/12/18 at 15:55; Status DC Pravastatin Sodium (Pravachol) 40 mg HS PO Last administered on 01/12/18at 22:44 ; Start 01/12/18 at 21:00 Pregabalin (Lyrica) 150 mg DAILY PO Last administered on 01/13/18at 08:37; Start 01/12/18 at 09:00 Tramadol HCl (Ultram) 50 mg Q6H PRN PO PAIN Last administered on 01/13/18 09: 35; Start 01/12/18 at 04:00 Topiramate (Topamax) 50 mg BID PO Last administered on 01/13/18 08:39; Start 01/12/18 at 09:00 Pneumococcal Polyvalent Vaccine (Pneumovax-23 Inj) 25 mcg ONCE ONCE IM ; Start 01/13/18 at 10:00; Stop 01/13/18 at 10:01; Status DC Levothyroxine Sodium (Synthroid) 125 mcg DAILY@0700 PO Last administered on at 07:33; Start 01/13/18 at 07:00 Baclofen (Lioresal) 10 mg BID PO Last administered on 01/13/18at 08:39; Start at 21:00 Famotidine (Pepcid) 20 mg BID PO Last administered on 01/13/18at 08:38; Start at 21:00 Cholecalciferol (Vitamin D3) 1,000 units DAILY PO Last administered on at 08:38; Start 01/13/18 at 09:00 Non-Formulary Medication 1 tab DAILY PO ; Start 01/13/18 at 09:00; Stop at 09:00; Status DC Multivitamins (Theragran) 1 tab DAILY PO Last administered on 01/13/18at 08:39; Start 01/13/18 at 09:00 A/P Assessment and Plan 1. UTI/hydronephrosis/renal calculi Patient with known history of staghorn calculus, currently undergoing treatment with Dr. Munguia CT of the abdomen/pelvis significant for right ureteral stone measuring 7 mm with associated moderate hydronephrosis UA consistent with urinary tract infection Urine culture pending Levaquin Urology consulted, appreciate assistance -Patient is scheduled to go for stenting due to hydronephrosis 2. Pneumonia Chest x-ray significant for parenchymal changes on the left, personally reviewed Antibiotics as above Suspect may be due to scar also 3. Hypertension/CHF/GERD Continue home medications 4. Chronic pain Continue tramadol and Lyrica 5. Hypothyroidism Continue home Synthroid-we will decrease dosage HYPOKALEMIA WILL REPLACE WITH IV KCL AM LABS FEN N.p.o. Electrolytes: Monitor and replete as needed NS at 70 cc/hour Holding pharmacologic anticoagulation for possible intervention Discharge Planning Will need surgery Hal Duval DO January 13, 2018 10:49
[2018-01-13] MEDS ORDERED: GLYCOPYRROLATE 1 MG/5 ML SYRINGE IV PUSH ONE (12:00)
[2018-01-13] MEDS ORDERED: LIDOCAINE HCL 1% PF 5 ML SYRINGE OTHER ONE (12:00)
[2018-01-13] MEDS ORDERED: PROPOFOL 200 MG/20 ML AMP IV ONE (12:00)
[2018-01-13] MEDS ORDERED: ONDANSETRON HCL 4 MG/2 ML VIAL IV ONE (12:00)
[2018-01-13] MEDS ORDERED: DEXAMETHASONE SOD PHOS 4 MG/ML VIAL IV ONE (12:00)
[2018-01-13] MEDS ORDERED: POTASSIUM CHLOR 20 MEQ PREMIX 100 ML IV SCH (12:00)
[2018-01-13] MEDS ORDERED: ROCURONIUM INJ 50 MG/5 ML SYRINGE IV PUSH ONE (12:00)
[2018-01-13] MEDS ORDERED: ePHEDrine/NS 25 MG/5 ML SYRINGE IV ONE (12:00)
[2018-01-13] MEDS ORDERED: NEOSTIGMINE 5 MG/5 ML SYRINGE IV PUSH ONE (12:00)
--- NOTE | 2018-01-13 12:17 | PD.WCN.NOT ---
Wound Consult Additional Information: Attempted to see patient at 1124 for wound assessment of debub wounds. Patient was off the floor at this time in cystoscopy. Carolyn Power [facility] January 13, 2018 12:17
--- NOTE | 2018-01-13 12:36 | OTSOAPIP ---
PATIENT IS OFF FLOOR FOR PLANNED SURGERY. INTERDISCIPLINARY COMMUNICATION: REVIEWED ELECTRONIC MEDICAL RECORD Therapist: Kimberly Bolanos OTR/L Signature on file
[2018-01-13] MEDS ORDERED: PIPERACIL-TAZO 3.375 GM PREMIX 50 ML IV SCH (12:45)
--- NOTE | 2018-01-13 13:35 | PD.OP ---
Operative Report Date of Surgery: January 13, 2018 Preoperative Diagnosis: Right ureteral calculus with large right lower pole calculus with hydronephrosis Postoperative Diagnosis: Same Procedure: Cystoscopy, right retrograde pyelogram, right ureteroscopy with stone extraction , right double-J stent insertion, with Vega insertion Anesthesia: General LMA Surgeon: Yo Schilling Author(s): None Resident Surgeon: None Operation and Findings: 77-year-old female with history of bilateral renal calculi and a distal right ureteral calculus who underwent extracorporeal shockwave lithotripsy in the past. She presented to the emergency room with shortness of breath and weakness and had some lower abdominal pain. CT scan demonstrated right hydronephrosis with the presence of the distal ureteral calculus still present as well as a large right lower pole stone. Decision was made to bring the patient to the operating room to undergo cystoscopy with possible ureteroscopy with stone extraction right double-J stent insertion. Risk and benefits were discussed with the patient and she was willing to proceed. The patient was brought to the operating room and identified by myself as Kaci Mcfarlane. She is placed in the dorsal lithotomy position, prepped and draped in usual sterile fashion, received preprocedure antibiotics and general LMA anesthesia was administered. 22 [place] cystoscope was inserted into the bladder and the right ureteral orifice was identified. A nitinol basket was attempted to pass into the ureter and grasped the stone but this was unsuccessful. The short ear rigid ureteroscope was then passed into the distal ureteral orifice on the right side and the stone was visualized. The nitinol basket was used then to remove the stone without difficulty. This was sent to pathology. The cystoscope was then placed into the bladder and a 0.35 sensor wire was then passed up into the right kidney. A 6 [place] 22 cm right double-J stent was then passed over the wire with a good curl in the kidney and bladder. The bladder was evacuated and a 16 [place] Vega was inserted into the bladder and she was awoken and extubated and transferred recovery in stable condition. She tolerated the procedure well was stable throughout the entire procedure. Yo Schilling DO January 13, 2018 13:35
[2018-01-13] MEDS ORDERED: DO NOT ADM ANY ANTICOAGULANT DRUGS PRN (14:00)
[2018-01-13 18:02] LABS: HEMOGLOBIN A1C 5.1 % (4.3-6.0)
[2018-01-13] MEDS ORDERED: POTASSIUM CHLORIDE 25 MEQ EFFERVESCENT TAB PO SCH (19:15)
[2018-01-13] MEDS: PRAVASTATIN SOD 40 MG TAB PO SCH (21:10)
[2018-01-13] MEDS: PIPERACIL-TAZO 3.375 GM PREMIX 50 ML IV SCH (21:11)
[2018-01-13] MEDS: DOXYCYCLINE HYCLATE 100 MG CAP PO SCH (21:13)
[2018-01-14] VITALS (10 sets, daily range): BP systolic 104–118; BP diastolic 60–68; PULSE 49–67; RESP 17–20; TEMP 97.1–98.4; O2SAT 95–98
[2018-01-14] MEDS: TOPIRAMATE 25 MG TAB PO SCH ×3 (00:09→22:22)
[2018-01-14] MEDS: PIPERACIL-TAZO 3.375 GM PREMIX 50 ML IV SCH ×3 (04:09→21:54)
[2018-01-14] MEDS: traMADol HCL 50 MG TAB PO PRN (04:10)
[2018-01-14] MEDS: LEVOTHYROXINE SODIUM 125 MCG TAB PO SCH (06:31)
[2018-01-14] MEDS: SODIUM CHLORIDE 0.9% FLUSH 10 ML FLUSH IV FLUSH SCH ×2 (09:00→21:00)
[2018-01-14] MEDS: DOCUSATE SODIUM 50 MG/SENNA 8.6 MG TAB PO SCH ×2 (09:00→21:00)
--- NOTE | 2018-01-14 09:05 | HHI.PR ---
Subjective Patient symptoms today Pt seen and examined. Feeling better s/p right URS with stone extraction with stent insertion. Objective Vital Signs Vital Signs Date Time Temp Pulse Resp B/P (MAP) Pulse Ox O2 Delivery O2 Flow Rate FiO2 01/14/18 05:10 18 01/14/18 03:50 98.1 62 20 117/68 (84) 95 01/14/18 03:00 61 01/14/18 00:11 98.1 67 18 118/64 (82) 98 01/13/18 23:00 60 01/13/18 22:10 18 01/13/18 21:52 98.0 62 18 129/70 (89) 98 01/13/18 19:00 54 01/13/18 16:00 60 01/13/18 15:00 60 01/13/18 15:00 98.6 55 14 106/53 (70) 96 01/13/18 14:15 79 15 103/52 (69) 97 Nasal Cannula 2 01/13/18 14:00 84 21 106/53 (70) 95 Nasal Cannula 2 01/13/18 13:41 98.7 84 15 132/61 (84) 92 Nasal Cannula 2 01/13/18 11:00 58 01/13/18 10:00 62 Intake & Output 01/14/18 01/14/18 07:00 19:00 Intake Total 1060 ml Output Total 1000 ml Balance 60 ml Intake Oral 960 ml IV Total 100 ml Output Urine Total 1000 ml # Voids 1 # Bowel Movements 3 Result Diagram: 01/13/1814 01/13/18513 Objective Remarks Abd:soft,nt,nd Quesada with clear urine Medications and IVs Current Medications Medications (Trade) Dose Ordered Sig/William Route Start Time Stop Time Status Last Admin Sodium Chloride 1,000 ml @ 70 mls/hr [id number] IV 01/12/18 03:49 01/13/18 21:12 (NS Flush) 2 ml UNSCH PRN IV FLUSH 01/12/18 04:00 (NS Flush) 2 ml BID IV FLUSH 01/12/18 09:00 01/13/18 21:12 (Tylenol) 650 mg Q4H PRN PO 01/12/18 04:00 (Zofran Inj) 4 mg Q6H PRN IVP 01/12/18 04:00 01/12/18 09:45 (Narcan Inj) 0.4 mg UNSCH PRN IV PUSH 01/12/18 04:00 (Megan-Colace) 1 tab BID PO 01/12/18 09:00 01/12/18 09:45 (Milk Of Magnesia Liq) 30 ml Q12H PRN PO 01/12/18 04:00 (Senokot) 17.2 mg Q12H PRN PO 01/12/18 04:00 (Dulcolax Supp) 10 mg DAILY PRN RECTAL 01/12/18 04:00 (Lactulose Liq) 30 ml DAILY PRN PO 01/12/18 04:00 (Cymbalta Dr) 60 mg DAILY PO 01/12/18 09:00 01/13/18 08:39 (Pravachol) 40 mg HS PO 01/12/18 21:00 01/13/18 21:10 (Ultram) 50 mg Q6H PRN PO 01/12/18 04:00 01/14/18 04:10 (Topamax) 50 mg BID PO 01/12/18 09:00 01/14/18 00:09 (Synthroid) 125 mcg DAILY@0700 PO 01/13/18 07:00 01/14/18 06:31 (Lioresal) 10 mg BID PO 01/12/18 21:00 01/13/18 21:10 (Pepcid) 20 mg BID PO 01/12/18 21:00 01/13/18 21:10 (Vitamin D3) 1,000 units DAILY PO 01/13/18 09:00 01/13/18 08:38 (Theragran) 1 tab DAILY PO 01/13/18 09:00 01/13/18 08:39 (Lyrica) 150 mg BID PO 01/13/18 21:00 01/13/18 21:08 Piperacillin Sod/ Tazobactam Sod 50 ml @ 100 mls/hr [employer] IV 01/13/18 12:45 01/16/18 12:44 Piperacillin Sod/ Tazobactam Sod 50 ml @ 100 mls/hr Q8H IV 01/13/18 21:00 01/14/18 04:09 ([facility] Nursing Information) ALL NURSING DEPARTME... UNSCH PRN .XX 01/13/18 14:00 01/14/18 13:59 (Vibramycin) 100 mg BID PO 01/13/18 21:00 01/13/18 21:13 Assessment and Plan Assessment and Plan Stable s/p right URS with stone extraction and stent insertion Continue quesada drainage for now Continue IV abx F/U with Dr. Munguia as outpt. Pt will need intervention for stones involving left kidney Yo Schilling DO Jan 14, 2018 09:05
[2018-01-14] MEDS: DOXYCYCLINE HYCLATE 100 MG CAP PO SCH ×2 (09:18→21:55)
[2018-01-14] MEDS: FAMOTIDINE 20 MG TAB PO SCH ×2 (09:18→21:55)
[2018-01-14] MEDS: BACLOFEN 10 MG TAB PO SCH ×2 (09:18→21:55)
[2018-01-14] MEDS: MULTIVITAMIN TAB PO SCH (09:18)
[2018-01-14] MEDS: DULoxetine HCl DR 60 MG CAP PO SCH (09:18)
[2018-01-14] MEDS: CHOLECALCIFEROL (VIT D3) 1000 UNIT TAB PO SCH (09:18)
[2018-01-14] MEDS: PREGABALIN 75 MG CAP PO SCH ×2 (09:18→21:55)
--- NOTE | 2018-01-14 14:19 | HHI.PR ---
Subjective Remarks 77-year-old female with a past medical history significant for nephrolithiasis currently undergoing lithotripsy with Dr. Munguia, hypertension, diastolic CHF, chronic kidney disease, CAD and GERD presents to the emergency department for evaluation of altered mental status. The patient resides in a longterm where they noted that she was having increasing fatigue, decreased level of consciousness and difficulty feeding herself. During her interview the patient is alert and oriented 3 and able to give me her own history. She reports abdominal and back pain. No nausea/vomiting/diarrhea. No chest pain. Patient does endorse shortness of breath that at times is so bad she cannot speak in complete sentences. No cough or congestion. No lateralizing signs/symptoms. PATIENT TO HAVE SURGERY WITH DR SCHILLING OF UROLOGY REGARDING HYDRONEPHROSIS AND NEED FOR URINARY STENT MODERATE RISK FOR SURGERY 01-13 PATIENT IS SCHEDULED TO GO FOR UROLOGICAL SURGERY TODAY DW RN AND PT AM LABS ADJUST MEDS REPLACE POTASSIUM 01-14 wants to go back to snf hopefully over this weekend will need to go on po antibiotics for her uti probably on PO DOXYCYCLINE FOR 14 DAYS Objective Vitals Vital Signs Date Time Temp Pulse Resp B/P (MAP) Pulse Ox O2 Delivery O2 Flow Rate FiO2 01/14/18 13:05 97.4 52 20 114/64 (81) 97 01/14/18 11:09 97.4 59 18 104/60 (75) 97 01/14/18 09:27 97.1 59 18 114/65 (81) 98 01/14/18 05:10 18 01/14/18 03:50 98.1 62 20 117/68 (84) 95 01/14/18 03:00 61 01/14/18 00:11 98.1 67 18 118/64 (82) 98 01/13/18 23:00 60 01/13/18 22:10 18 01/13/18 21:52 98.0 62 18 129/70 (89) 98 01/13/18 19:00 54 01/13/18 16:00 60 01/13/18 15:00 60 01/13/18 15:00 98.6 55 14 106/53 (70) 96 I/O 01/13/18 01/13/18 01/13/18 01/14/18 01/14/18 01/14/18 07:00 15:00 23:00 07:00 15:00 23:00 Intake Total 1200 ml 800 ml 50 ml 1010 ml Output Total 250 ml 1000 ml Balance 1200 ml 800 ml -200 ml 10 ml Intake Oral 1200 ml 0 ml 960 ml IV Total 50 ml 50 ml Other 800 ml Output Urine Total 250 ml 1000 ml # Voids 3 1 # Bowel Movements 1 1 3 Result Diagram: 01/13/18 0514 01/13/18 0514 Other Results Laboratory Tests Test 01/11/18 21:15 01/11/18 22:00 01/11/18 23:15 01/11/18 23:29 White Blood Count 13.7 TH/MM3 Red Blood Count 4.25 MIL/MM3 Hemoglobin 12.2 GM/DL Hematocrit 36.9 % Mean Corpuscular Volume 87.0 FL Mean Corpuscular Hemoglobin 28.8 PG Mean Corpuscular Hemoglobin Concent 33.1 % Red Cell Distribution Width 16.1 % Platelet Count 205 TH/MM3 Mean Platelet Volume 9.7 FL Neutrophils (%) (Auto) 69.0 % Lymphocytes (%) (Auto) 17.7 % Monocytes (%) (Auto) 11.0 % Eosinophils (%) (Auto) 1.7 % Basophils (%) (Auto) 0.6 % Neutrophils # (Auto) 9.4 TH/MM3 Lymphocytes # (Auto) 2.4 TH/MM3 Monocytes # (Auto) 1.5 TH/MM3 Eosinophils # (Auto) 0.2 TH/MM3 Basophils # (Auto) 0.1 TH/MM3 CBC Comment DIFF FINAL Differential Comment Prothrombin Time 10.1 SEC Prothromb Time International Ratio 1.0 RATIO Activated Partial Thromboplast Time 28.7 SEC Lactic Acid Level 0.9 mmol/L B-Type Natriuretic Peptide 33 PG/ML Ammonia 46 MCMOL/L Urine Color YELLOW Urine Turbidity CLOUDY Urine pH 7.0 Urine Specific [place] 1.016 Urine Protein 100 mg/dL Urine Glucose (UA) NEG mg/dL Urine Ketones NEG mg/dL Urine Occult Blood SMALL Urine Nitrite NEG Urine Bilirubin NEG Urine Urobilinogen LESS THAN 2.0 MG/DL Urine Leukocyte Esterase LARGE Urine RBC 15 /hpf Urine WBC /hpf Urine WBC Clumps MANY Urine Squamous Epithelial Cells 2 /hpf Urine Transitional Epithelial Cells <1 /hpf Urine Bacteria MANY /hpf Microscopic Urinalysis Comment CULTURE INDICATED Blood Urea Nitrogen 28 MG/DL Creatinine 1.00 MG/DL Random Glucose 140 MG/DL Total Protein 7.5 GM/DL Albumin 2.5 GM/DL Calcium Level 8.5 MG/DL Magnesium Level 2.3 MG/DL Alkaline Phosphatase 94 U/L Aspartate Amino Transf (AST/SGOT) 11 U/L Alanine Aminotransferase (ALT/SGPT) 15 U/L Total Bilirubin 0.3 MG/DL Sodium Level 144 MEQ/L Potassium Level 3.6 MEQ/L Chloride Level 110 MEQ/L Carbon Dioxide Level 24.6 MEQ/L Anion Gap 9 MEQ/L Estimat Glomerular Filtration Rate 53 ML/MIN Total Creatine Kinase 25 U/L Troponin I LESS THAN 0.02 NG/ML Lipase 65 U/L Thyroid Stimulating Hormone 3rd Gen 0.063 uIU/ML Test 01/13/18 05:14 01/13/18 14:13 White Blood Count 11.5 TH/MM3 Red Blood Count 3.88 MIL/MM3 Hemoglobin 10.9 GM/DL Hematocrit 34.3 % Mean Corpuscular Volume 88.4 FL Mean Corpuscular Hemoglobin 28.2 PG Mean Corpuscular Hemoglobin Concent 31.9 % Red Cell Distribution Width 16.3 % Platelet Count 188 TH/MM3 Mean Platelet Volume 10.4 FL Neutrophils (%) (Auto) 59.8 % Lymphocytes (%) (Auto) 24.8 % Monocytes (%) (Auto) 11.9 % Eosinophils (%) (Auto) 2.7 % Basophils (%) (Auto) 0.8 % Neutrophils # (Auto) 6.8 TH/MM3 Lymphocytes # (Auto) 2.8 TH/MM3 Monocytes # (Auto) 1.4 TH/MM3 Eosinophils # (Auto) 0.3 TH/MM3 Basophils # (Auto) 0.1 TH/MM3 CBC Comment DIFF FINAL Differential Comment Blood Urea Nitrogen 19 MG/DL Creatinine 0.92 MG/DL Random Glucose 81 MG/DL Total Protein 6.7 GM/DL Albumin 2.2 GM/DL Calcium Level 8.8 MG/DL Phosphorus Level 2.6 MG/DL Magnesium Level 2.3 MG/DL Alkaline Phosphatase 82 U/L Aspartate Amino Transf (AST/SGOT) 14 U/L Alanine Aminotransferase (ALT/SGPT) 12 U/L Total Bilirubin 0.4 MG/DL Sodium Level 142 MEQ/L Potassium Level 3.4 MEQ/L Chloride Level 110 MEQ/L Carbon Dioxide Level 21.5 MEQ/L Anion Gap 11 MEQ/L Estimat Glomerular Filtration Rate 59 ML/MIN Hemoglobin A1c 5.1 % Free Thyroxine 1.10 NG/DL Thyroid Stimulating Hormone 3rd Gen 0.190 uIU/ML Nasal Screen MRSA (PCR) NEGATIVE Staphylococcus aureus (PCR)(LAB) POSITIVE Imaging Last Impressions Abdomen/Pelvis CT 01/12/182308 Signed Impressions: CONCLUSION: 1. There is moderate hydronephrosis in the right kidney due to a distal ureter al stone almost 7 mm in size. Additional stones in the right kidney. 2. Staghorn calculus in the left kidney with numerous other stones within the calyces on the left side and multiple fragmented stones within the left renal p radha. 3. 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 Chest X-Ray 01/11/182036 Signed Impressions: CONCLUSION: Mild congestive failure with minimal parenchymal changes on the left. Inflammat ory process would be consideration. Objective Remarks GENERAL: Elderly, female lying in bed SKIN: No rashes, ecchymoses or lesions. Cool and dry. Decub ulcer HEAD: Atraumatic. Normocephalic. No temporal or scalp tenderness. EYES: Pupils equal round and reactive. Extraocular motions intact. No scleral icterus. No injection or drainage. ENT: Nose without bleeding, purulent drainage or septal hematoma. Throat without erythema, tonsillar hypertrophy or exudate. Uvula midline. Airway patent. NECK: Trachea midline. No JVD or lymphadenopathy. Supple, nontender, no meningeal signs. CARDIOVASCULAR: Regular rate and rhythm without murmurs, gallops, or rubs. RESPIRATORY: Breath sounds equal bilaterally. + rhonchi. GASTROINTESTINAL: Abdomen soft, non-tender, nondistended. No hepato-splenomegaly , or palpable masses. No guarding. MUSCULOSKELETAL: Extremities without clubbing, cyanosis, or edema. No joint tenderness, effusion, or edema noted. No calf tenderness. Generalized weakness bilateral lower extremities NEUROLOGICAL: Awake and alert. Cranial nerves II through XII intact. Motor and sensory grossly within normal limits. Normal speech. Insight and judgment is good Mood and behavior somewhat Procedures Date of Surgery: January 13, 2018 Preoperative Diagnosis: Right ureteral calculus with large right lower pole calculus with hydronephrosis Postoperative Diagnosis: Same Procedure: Cystoscopy, right retrograde pyelogram, right ureteroscopy with stone extraction , right double-J stent insertion, with Vega insertion Anesthesia: General LMA Surgeon: Yo Schilling Medications and IVs Current Medications Sodium Chloride 250 ml @ 250 mls/hr BOLUS ONCE IV Last administered on at 21:24; Start 01/11/18 at 20:45; Stop 01/11/18 at 21:44; Status DC Levofloxacin/ Dextrose 150 ml @ 100 mls/hr ONCE ONCE IV Last administered on 01/11/18at 22:53; Start 01/11/18 at 22:30; Stop 01/11/18 at 23:59; Status DC Iohexol (Omnipaque 350 Inj) 80 ml STK-MED ONCE IVCONTRAST Last administered on 01/11/18at 23:50; Start 01/11/18 at 23:50; Stop 01/12/18 at 01:58; Status DC Levofloxacin/ Dextrose 150 ml @ 100 mls/hr Q24H IV Last administered on at 22:45; Start 01/12/18 at 22:30; Stop 01/13/18 at 13:37; Status DC Sodium Chloride 1,000 ml @ 70 mls/hr [id number] IV Last administered on at 21:12; Start 01/12/18 at 03:49 Sodium Chloride (NS Flush) 2 ml UNSCH PRN IV FLUSH FLUSH AFTER USING IV ACCESS ; Start 01/12/18 at 04:00 Sodium Chloride (NS Flush) 2 ml BID IV FLUSH Last administered on 01/14/18at 09: 00; Start 01/12/18 at 09:00 Acetaminophen (Tylenol) 650 mg Q4H PRN PO TEMP > 100.4; Start 01/12/18 at 04:00 Ondansetron HCl (Zofran Inj) 4 mg Q6H PRN IVP NAUSEA OR VOMITING Last administered on 01/12/18at 09:45; Start 01/12/18 at 04:00 Naloxone HCl (Narcan Inj) 0.4 mg UNSCH PRN IV PUSH SEE LABEL COMMENTS; Start at 04:00 Senna/Docusate Sodium (Megan-Colace) 1 tab BID PO Last administered on at 09:45; Start 01/12/18 at 09:00 Magnesium Hydroxide (Milk Of Magnesia Liq) 30 ml Q12H PRN PO Mild constipation ; Start 01/12/18 at 04:00 Sennosides (Senokot) 17.2 mg Q12H PRN PO Moderate constipation; Start 01/12/18 at 04:00 Bisacodyl (Dulcolax Supp) 10 mg DAILY PRN RECTAL SEVERE CONSITIPATION/ IF NPO ; Start 01/12/18 at 04:00 Lactulose (Lactulose Liq) 30 ml DAILY PRN PO SEVERE CONSITIPATION/ IF PO; Start 01/12/18 at 04:00 Duloxetine HCl (Cymbalta Dr) 60 mg DAILY PO Last administered on 01/14/18at 09:18 ; Start 01/12/18 at 09:00 Levothyroxine Sodium (Synthroid) 150 mcg DAILY@0700 PO Last administered on at 06:48; Start 01/12/18 at 07:00; Stop 01/12/18 at 15:55; Status DC Pravastatin Sodium (Pravachol) 40 mg HS PO Last administered on 01/13/18at 21:10 ; Start 01/12/18 at 21:00 Pregabalin (Lyrica) 150 mg DAILY PO Last administered on 01/13/18at 08:37; Start 01/12/18 at 09:00; Stop 01/13/18 at 10:51; Status DC Tramadol HCl (Ultram) 50 mg Q6H PRN PO PAIN Last administered on 01/14/18at 04:10 ; Start 01/12/18 at 04:00 Topiramate (Topamax) 50 mg BID PO Last administered on 01/14/18at 09:18; Start at 09:00 Pneumococcal Polyvalent Vaccine (Pneumovax-23 Inj) 25 mcg ONCE ONCE IM ; Start 01/13/18 at 10:00; Stop 01/13/18 at 10:01; Status DC Levothyroxine Sodium (Synthroid) 125 mcg DAILY@0700 PO Last administered on 01/14at 06:31; Start 01/13/18 at 07:00 Baclofen (Lioresal) 10 mg BID PO Last administered on 01/14/18at 09:18; Start at 21:00 Famotidine (Pepcid) 20 mg BID PO Last administered on 01/14/18at 09:18; Start at 21:00 Cholecalciferol (Vitamin D3) 1,000 units DAILY PO Last administered on at 09:18; Start 01/13/18 at 09:00 Non-Formulary Medication 1 tab DAILY PO ; Start 01/13/18 at 09:00; Stop at 09:00; Status DC Multivitamins (Theragran) 1 tab DAILY PO Last administered on 01/14/18at 09:18; Start 01/13/18 at 09:00 Potassium Chloride 100 ml @ 50 mls/hr Q2H IV ; Start 01/13/18 at 12:00; Stop at 15:59; Status Cancel Pregabalin (Lyrica) 150 mg BID PO Last administered on 01/14/18at 09:18; Start at 21:00 Piperacillin Sod/ Tazobactam Sod 50 ml @ 100 mls/hr [employer] IV ; Start at 12:45; Stop 01/16/18 at 12:44 Piperacillin Sod/ Tazobactam Sod 50 ml @ 100 mls/hr Q8H IV Last administered on 01/14/18at 13:59; Start 01/13/18 at 21:00 Fentanyl Citrate (fentaNYL INJ) 100 mcg STK-MED ONCE .ROUTE ; Start 01/13/18 at 13:48; Stop 01/13/18 at 13:49; Status DC Miscellaneous Information ([facility] Nursing Information) ALL NURSING DEPARTME... UNSCH PRN .XX SEE LABEL COMMENTS; Start 01/13/18 at 14:00; Stop 01/14/18 at 13: 59; Status DC Doxycycline Hyclate (Vibramycin) 100 mg BID PO Last administered on 01/14/18at 09 :18; Start 01/13/18 at 21:00 Potassium Bicarb/ Potassium Chloride (K-Lyte Cl Eff) 50 meq ONCE PO Last administered on 01/13/18at 21:11; Start 01/13/18 at 19:15; Stop 01/13/18 at 22:00 ; Status DC A/P Assessment and Plan 1. UTI/hydronephrosis/renal calculi Patient with known history of staghorn calculus, currently undergoing treatment with Dr. Munguia CT of the abdomen/pelvis significant for right ureteral stone measuring 7 mm with associated moderate hydronephrosis UA consistent with urinary tract infection [facility] consulted, appreciate assistance -Patient is scheduled to go for stenting due to hydronephrosis Date of Surgery: January 13, 2018 Right ureteral calculus with large right lower pole calculus with hydronephrosis Procedure: Cystoscopy, right retrograde pyelogram, right ureteroscopy with stone extraction , right double-J stent insertion, with Vega insertion Surgeon: Yo Schilling 2. Pneumonia Chest x-ray significant for parenchymal changes on the left, personally reviewed Antibiotics as above Suspect may be due to scar also 3. Hypertension/CHF/GERD Continue home medications 4. Chronic pain Continue tramadol and Lyrica 5. Hypothyroidism Continue home Synthroid-we will decrease dosage HYPOKALEMIA WILL REPLACE WITH IV KCL AM LABS FEN N.p.o. Electrolytes: Monitor and replete as needed NS at 70 cc/hour Holding pharmacologic anticoagulation for possible intervention Discharge Planning hopefully to snf this weekend am labs Hal Duval DO Jan 14, 2018 14:19
[2018-01-14 15:13] LABS: AUTOMATED NEUTROPHIL # 5.2 TH/MM3 (1.8-7.7); BASOPHIL # 0.1 TH/MM3 (0-0.2); BASOPHIL % 1.1 % (0.0-2.0); EOSINOPHIL # 0.2 TH/MM3 (0-0.4); EOSINOPHIL % 1.7 % (0.0-4.0); HEMATOCRIT 33.9 % (35.0-46.0); HEMOGLOBIN 10.8 GM/DL (11.6-15.3); LYMPH % 29.7 % (9.0-44.0); LYMPHOCYTE # 2.8 TH/MM3 (1.0-4.8); MEAN CORPUSCULAR HEMOGLOBIN 28.1 PG (27.0-34.0); MEAN CORPUSCULAR HGB CONC 31.9 % (32.0-36.0); MONOCYTE # 1.1 TH/MM3 (0-0.9); NEUT % 55.5 % (16.0-70.0); PLATELET COUNT 178 TH/MM3 (150-450); RED BLOOD COUNT 3.85 MIL/MM3 (4.00-5.30); RED CELL DISTRIBUTION WIDTH 16.1 % (11.6-17.2); WHITE BLOOD COUNT 9.4 TH/MM3 (4.0-11.0)
[2018-01-14 15:44] LABS: ALBUMIN 2.3 GM/DL (3.4-5.0); ALT (GPT) 12 U/L (10-53); AST (GOT) 12 U/L (15-37); BICARBONATE 23.4 MEQ/L (21.0-32.0); BLOOD UREA NITROGEN 21 MG/DL (7-18); CALCIUM 8.4 MG/DL (8.5-10.1); CHLORIDE 111 MEQ/L (98-107); CREATININE 0.95 MG/DL (0.50-1.00); GLOMERULAR FILTRATION RATE 57 ML/MIN (>89); GLUCOSE,RANDOM 95 MG/DL (74-106); MAGNESIUM 2.5 MG/DL (1.5-2.5); SODIUM (NA) 144 MEQ/L (136-145)
[2018-01-14 15:47] LABS: ALKALINE PHOSPHATASE 74 U/L (45-117); PHOSPHORUS 2.8 MG/DL (2.5-4.9); TOTAL BILIRUBIN ADULT 0.2 MG/DL (0.2-1.0); TOTAL PROTEIN 6.8 GM/DL (6.4-8.2)
--- NOTE | 2018-01-14 21:20 | PD.WCN.NOT ---
Wound Consult Description: Received consult from Doctor Miles for wound management of decub wounds Communicated with: Doctor Italia and RN cher Case [address] [place] [address] Recommendation: 1.Please cleanse wound with normal saline or wound cleanser and pat dry. Apply maxorb II packed loosely to wound bed and cover with optifoam 4x4 gentle border. Please apply skin barrier film to periwound before applying cover dressing.Change dressing every 3 days or PRN if saturated or dislodged. 2.Turn and reposition patient every 2 hours from L side to R side and PRN for comfort and offloading of pressure from annia prominences. 3. Please obtain [employer] 4 bed Additional Information: Patient seen on 4 north earlier for wound management of decub wound. Patient assessed with Cher Case RN [address] [place] [address] and advertising copywriter. Patient is laying on [facility] bed and was turned to L side for assessment with maximum assist. Removed adhesive sacral foam in place to reveal open wound to sacral area that measures ~3.2x~1.7 x ~0.8. Undermining is noted from 7 to 11 o'clock deepest at 10 o'clock measuring 0.8cm. No tunneling is noted at this time. Wound bed presents with ~ 80% dark red granulation tissue and ~20% purple tissue. Wound bed is moist with minimal sero-sanguinous drainage, that is without odor. Periwound is unremarkable.Wound was cleansed with normal saline and patted dry.Skin barrier film applied to periwound. Applied Maxorb II lightly packed to wound bed and covered with bordered gauze that was on hand. Patient was positioned off bottom for offloading from sacral area Carolyn Power [facility] Jan 14, 2018 21:20
[2018-01-14] MEDS: SODIUM CHLOR 0.9% 1000 ML INJ 1,000 ML IV SCH (21:54)
[2018-01-14] MEDS: PRAVASTATIN SOD 40 MG TAB PO SCH (21:55)
[2018-01-15] VITALS: BP 119/74; PULSE 53; PULSE 59; RESP 18; TEMP 98.6; O2SAT 97
[2018-01-15 04:00] VITALS: BP 125/84; PULSE 53; PULSE 54; RESP 18; TEMP 98.6; O2SAT 98
[2018-01-15] MEDS: LEVOTHYROXINE SODIUM 125 MCG TAB PO SCH (05:55)
[2018-01-15] MEDS: PIPERACIL-TAZO 3.375 GM PREMIX 50 ML IV SCH ×2 (05:55→12:37)
[2018-01-15 08:00] VITALS: BP 115/64; PULSE 52; PULSE 56; RESP 18; TEMP 97.8; O2SAT 96
[2018-01-15] MEDS: traMADol HCL 50 MG TAB PO PRN ×3 (08:41→21:27)
[2018-01-15] MEDS: DOXYCYCLINE HYCLATE 100 MG CAP PO SCH (08:42)
[2018-01-15] MEDS: FAMOTIDINE 20 MG TAB PO SCH ×2 (08:42→21:30)
[2018-01-15] MEDS: MULTIVITAMIN TAB PO SCH (08:42)
[2018-01-15] MEDS: TOPIRAMATE 25 MG TAB PO SCH ×2 (08:43→21:29)
[2018-01-15] MEDS: DOCUSATE SODIUM 50 MG/SENNA 8.6 MG TAB PO SCH ×2 (08:43→21:00)
[2018-01-15] MEDS: PREGABALIN 75 MG CAP PO SCH ×2 (08:43→21:27)
[2018-01-15] MEDS: BACLOFEN 10 MG TAB PO SCH ×2 (08:43→21:30)
[2018-01-15] MEDS: CHOLECALCIFEROL (VIT D3) 1000 UNIT TAB PO SCH (08:43)
[2018-01-15] MEDS: SODIUM CHLORIDE 0.9% FLUSH 10 ML FLUSH IV FLUSH SCH ×2 (08:43→21:00)
[2018-01-15] MEDS: DULoxetine HCl DR 60 MG CAP PO SCH (08:43)
[2018-01-15 11:15] LABS: AUTOMATED NEUTROPHIL # 3.8 TH/MM3 (1.8-7.7); BASOPHIL # 0.1 TH/MM3 (0-0.2); BASOPHIL % 1.2 % (0.0-2.0); EOSINOPHIL # 0.3 TH/MM3 (0-0.4); HEMATOCRIT 36.9 % (35.0-46.0); HEMOGLOBIN 11.8 GM/DL (11.6-15.3); LYMPH % 29.7 % (9.0-44.0); MEAN CELL VOLUME 88.5 FL (80.0-100.0); MEAN CORPUSCULAR HEMOGLOBIN 28.4 PG (27.0-34.0); MEAN CORPUSCULAR HGB CONC 32.1 % (32.0-36.0); MEAN PLATELET VOLUME 9.8 FL (7.0-11.0); MONO % 9.6 % (0.0-8.0); MONOCYTE # 0.7 TH/MM3 (0-0.9); NEUT % 55.5 % (16.0-70.0); PLATELET COUNT 157 TH/MM3 (150-450); RED BLOOD COUNT 4.17 MIL/MM3 (4.00-5.30); RED CELL DISTRIBUTION WIDTH 16.2 % (11.6-17.2); WHITE BLOOD COUNT 6.8 TH/MM3 (4.0-11.0)
[2018-01-15 11:50] LABS: ALBUMIN 2.2 GM/DL (3.4-5.0); ALT (GPT) 14 U/L (10-53); AST (GOT) 16 U/L (15-37); BICARBONATE 20.7 MEQ/L (21.0-32.0); BLOOD UREA NITROGEN 18 MG/DL (7-18); CALCIUM 8.4 MG/DL (8.5-10.1); CHLORIDE 114 MEQ/L (98-107); CREATININE 0.98 MG/DL (0.50-1.00); GLOMERULAR FILTRATION RATE 55 ML/MIN (>89); GLUCOSE,RANDOM 78 MG/DL (74-106); MAGNESIUM 2.3 MG/DL (1.5-2.5); SODIUM (NA) 144 MEQ/L (136-145)
[2018-01-15 11:53] LABS: ALKALINE PHOSPHATASE 73 U/L (45-117); PHOSPHORUS 2.6 MG/DL (2.5-4.9); TOTAL BILIRUBIN ADULT 0.3 MG/DL (0.2-1.0); TOTAL PROTEIN 6.7 GM/DL (6.4-8.2)
[2018-01-15 12:00] VITALS: BP 117/63; PULSE 50; PULSE 54; RESP 18; TEMP 97.6; O2SAT 96
--- NOTE | 2018-01-15 14:17 | HHI.PR ---
Subjective Remarks Nursing denies any deterioration since last night. Patient herself has no new complaints, wants to be discharged. She still has a Quesada catheter in. Objective Vital Signs Date Time Temp Pulse Resp B/P (MAP) Pulse Ox O2 Delivery O2 Flow Rate FiO2 01/15/18 08:00 52 01/15/18 04:00 54 01/15/18 04:00 98.6 53 18 125/84 (98) 98 01/15/18 00:00 98.6 53 18 119/74 (89) 97 01/15/18 00:00 59 01/14/18 20:05 49 01/14/18 20:00 98.4 50 17 118/65 (82) 98 01/14/18 16:05 97.5 55 20 113/63 (80) 96 01/14/18 15:00 58 I/O 01/14/18 01/14/18 01/14/18 01/15/18 01/15/18 01/15/18 07:00 15:00 23:00 07:00 15:00 23:00 Intake Total 1010 ml 480 ml Output Total 1000 ml 250 ml Balance 10 ml 230 ml Intake Oral 960 ml 480 ml IV Total 50 ml Output Urine Total 1000 ml 250 ml # Voids 1 # Bowel Movements 3 Result Diagram: 01/15/18 0945 01/15/18 0925 Objective Remarks Lying in bed, awake and alert, no acute distress Quesada catheter in place Abdomen soft, nontender nondistended A/P Assessment and Plan hydronephrosis -improving 1 day s/p right ureteral stent placement -Cystoscopy, right retrograde pyelogram, right ureteroscopy with stone extraction, right double-J stent insertion, with Quesada insertion UTI -ESBL e.coli growing in urine, on zosyn, stopping doxycycline -consulting ID Pneumonia -Chest x-ray significant for parenchymal changes on the left, personally reviewed -Antibiotics as above Hypertension/CHF/GERD -Continue home medications Chronic pain -Continue tramadol and Lyrica Hypothyroidism -Continue home Synthroid-we will decrease dosage Discharge Planning discharge pending ID clearance and disposition regarding quesada cath from both urology and ID Elvin Echavarria MD Jan 15, 2018 14:17
[2018-01-15] MEDS ORDERED: PHARMACY INFORMATION XX PRN (15:30)
[2018-01-15 16:00] VITALS: BP 129/70; PULSE 65; RESP 18; TEMP 97.8; O2SAT 96
[2018-01-15] MEDS ORDERED: ASP: Path resistant to other antimicrobials, culture proven PRN (16:00)
--- NOTE | 2018-01-15 16:23 | PD.ID.CON ---
History of Present Illness Service ID Consult Requested By Reason for Consult Evaluation and management of complicated UTI with ESBL E. coli. Primary Care Physician Unknown Diagnoses: History of Present Illness Ms. Mcfarlane is a 77-year-old female with past medical history significant for hypertension, coronary artery disease, chronic kidney disease and prior history of nephrolithiasis status post lithotripsy by Dr. Man. With this background patient presents to the emergency department for evaluation of altered mental status. Patient reports that she resides in a alf and she noticed increasing fatigue decreased level of consciousness and reportedly had difficulty feeding herself. She corroborated much of her history. Patient did not want to be bothered as she had discomfort in her legs. Upon questioning she reports this pain and discomfort in her legs is chronic. Patient met criteria for sepsis on admission underwent a workup including blood cultures and UA. UA is positive for ESBL E. coli. Patient has been started on Zosyn IV and appears to be clinically improving although it is not the drug of choice for this organism. Patient underwent a CT scan which showed right ureteral calculus with large right lower pole calculus with hydronephrosis. Patient was seen by Dr. Yo Schilling and underwent cystoscopy right retrograde pyelogram, right ureteroscopy with stone extraction, right double-J stent insertion with Vega insertion on January 13, 2018. Postoperatively patient seems to be doing well clinically. Now found to be more alert oriented 3 and providing good information about her medical background. Infectious diseases consulted for evaluation and management of complicated UTI with ESBL E. coli. Review of Systems Constitutional: DENIES: Diaphoretic episodes, Fatigue, Fever, Weight gain, Weight loss, Chills, Dizziness, Change in appetite, Night Sweats Endocrine: DENIES: Abnorml menstrual pattern, Heat/cold intolerance, Polydipsia , Polyuria, Polyphagia Eyes: DENIES: Blurred vision, Diplopia, Eye inflammation, Eye pain, Vision loss , Photosensitivity, Double Vision Ears, nose, mouth, throat: DENIES: Tinnitus, Hearing loss, Vertigo, Nasal discharge, Oral lesions, Throat pain, Hoarseness, Ear Pain, Running Nose, Epistaxis, Sinus Pain, Toothache, Odynophagia Respiratory: DENIES: Apneas, Cough, Snoring, Wheezing, Hemoptysis, Sputum production, Shortness of breath Cardiovascular: DENIES: Chest pain, Palpitations, Syncope, Dyspnea on Exertion , PND, Lower Extremity Edema, Orthopnea, Claudication Gastrointestinal: DENIES: Abdominal pain, Black stools, Bloody stools, Constipation, Diarrhea, Nausea, Vomiting, Difficulty Swallowing, Anorexia Genitourinary: DENIES: Abnormal vaginal bleeding, Dysmenorrhea, Dyspareunia, Sexual dysfunction, Urinary frequency, Urinary incontinence, Urgency, Hematuria , Dysuria, Nocturia, Vaginal discharge Musculoskeletal: DENIES: Joint pain, Muscle aches, Stiffness, Joint Swelling, Back pain, Neck pain Integumentary: DENIES: Abnormal pigmentation, Pruritus, Rash, Nail changes, Breast masses, Breast skin changes, Nipple discharge Hematologic/lymphatic: DENIES: Bruising, Lymphadenopathy Immunologic/allergic: DENIES: Eczema, Urticaria Neurologic: DENIES: Abnormal gait, Headache, Localized weakness, Paresthesias, Seizures, Speech Problems, Tremor, Poor Balance Psychiatric: DENIES: Anxiety, Confusion, Mood changes, Depression, Hallucinations, Agitation, Suicidal Ideation, Homicidal Ideation, Delusions Except as stated in HPI: all other systems reviewed are Neg Past Family Social History Allergies: Coded Allergies: Sulfa (Sulfonamide Antibiotics) (Verified Allergy, Severe, 12/22/17) codeine (Verified Allergy, Severe, 12/22/17) morphine (Verified Allergy, Severe, 12/22/17) amoxicillin (Verified Allergy, Unknown, UNKNOWN, 12/22/17) Past Medical History Nephrolithiasis status post lithotripsy by Dr. Man Other urological procedure per HPI Hypertension Diastolic congestive heart failure Chronic kidney disease Coronary artery disease GERD Past Surgical History Cardiac catheterization with stent placement Bilateral cataracts 4 hip surgeries 4 back surgeries 2 knee surgeries Reported Medications Reported Meds & Active Scripts Active Tramadol (Tramadol HCl) 50 Mg Tab 50 Mg PO Q6H PRN Ambien (Zolpidem Tartrate) 5 Mg Tab 5 Mg PO HS PRN Hydrocodone-Acetaminophen 10-325 mg Tab 1 Tab PO Q8HR PRN Reported [Protein Supplement] Multi-Vitamin Daily (Multiple Vitamin) 1 Tab Tab 1 Tab PO DAILY Vitamin D3 (Cholecalciferol) 1,000 Unit Tab 1,000 Units PO DAILY Senna-Tabs (Sennosides) 8.6 Mg Tab 17.2 Mg PO BID Topiramate ER (Topiramate) 50 Mg Cap 50 Mg PO BID Famotidine 20 Mg Tab 20 Mg PO BID Tylenol (Acetaminophen) 325 Mg Tab 325 Mg PO Q4H PRN Pravastatin 40 Mg Tab 40 Mg PO HS Lyrica (Pregabalin) 150 Mg Cap 1 Tab PO 6AM,10PM Cymbalta DR (Duloxetine HCl) 60 Mg Capdr 60 Mg PO DAILY Docusate Sodium 100 Mg Cap 100 Mg PO BID Polyethylene Glycol 3350 Powder (Polyethylene Glycol) 17 Gm Pow 17 Gm PO DAILY Levothyroxine (Levothyroxine Sodium) 150 Mcg Tab 150 Mcg PO DAILY Baclofen 10 Mg Tab 10 Mg PO BID Active Ordered Medications Current Medications Medications (Trade) Dose Ordered Sig/William Route Start Time Stop Time Status Last Admin Sodium Chloride 1,000 ml @ 70 mls/hr [id number] IV 01/12/18 03:49 01/14/18 21:54 (NS Flush) 2 ml UNSCH PRN IV FLUSH 01/12/18 04:00 (NS Flush) 2 ml BID IV FLUSH 01/12/18 09:00 01/14/18 09:00 (Tylenol) 650 mg Q4H PRN PO 01/12/18 04:00 (Zofran Inj) 4 mg Q6H PRN IVP 01/12/18 04:00 01/12/18 09:45 (Narcan Inj) 0.4 mg UNSCH PRN IV PUSH 01/12/18 04:00 (Megan-Colace) 1 tab BID PO 01/12/18 09:00 01/12/18 09:45 (Milk Of Magnesia Liq) 30 ml Q12H PRN PO 01/12/18 04:00 (Senokot) 17.2 mg Q12H PRN PO 01/12/18 04:00 (Dulcolax Supp) 10 mg DAILY PRN RECTAL 01/12/18 04:00 (Lactulose Liq) 30 ml DAILY PRN PO 01/12/18 04:00 (Cymbalta Dr) 60 mg DAILY PO 01/12/18 09:00 01/15/18 08:43 (Pravachol) 40 mg HS PO 01/12/18 21:00 01/14/18 21:55 (Ultram) 50 mg Q6H PRN PO 01/12/18 04:00 01/15/18 14:53 (Topamax) 50 mg BID PO 01/12/18 09:00 01/15/18 08:43 (Synthroid) 125 mcg DAILY@0700 PO 01/13/18 07:00 01/15/18 05:55 (Lioresal) 10 mg BID PO 01/12/18 21:00 01/15/18 08:43 (Pepcid) 20 mg BID PO 01/12/18 21:00 01/15/18 08:42 (Vitamin D3) 1,000 units DAILY PO 01/13/18 09:00 01/15/18 08:43 (Theragran) 1 tab DAILY PO 01/13/18 09:00 01/15/18 08:42 (Lyrica) 150 mg BID PO 01/13/18 21:00 01/15/18 08:43 Piperacillin Sod/ Tazobactam Sod 50 ml @ 100 mls/hr OFFICE SERVICES ASSOCIATE IV 01/13/18 12:45 01/16/18 12:44 (Vibramycin) 100 mg BID PO 01/13/18 21:00 01/15/18 08:42 (ASP Crit: Path resist to other, cult proven) 1 UNSCH X1 PRN .XX 01/15/18 16:00 01/16/18 15:59 ([facility]) 1 UNSCH X1 PRN XX 01/15/18 15:30 01/16/18 15:29 Ertapenem 1000 mg/ Sodium Chloride 100 ml @ 200 mls/hr Q24H IV 01/15/18 17:00 (Santyl Oint) 1 applic DAILY TOPICAL 01/15/18 16:45 (Lac-Hydrin 12% Lotion) 1 applic BID TOPICAL 01/15/18 21:00 Family History Father of lung cancer, mother with CAD Social History Negative for alcohol, tobacco and illicit drugs Physical Exam Vital Signs Vital Signs Date Time Temp Pulse Resp B/P (MAP) Pulse Ox O2 Delivery O2 Flow Rate FiO2 01/15/18 12:00 54 01/15/18 08:00 52 01/15/18 04:00 54 01/15/18 04:00 98.6 53 18 125/84 (98) 98 01/15/18 00:00 98.6 53 18 119/74 (89) 97 01/15/18 00:00 59 01/14/18 20:05 49 01/14/18 20:00 98.4 50 17 118/65 (82 98 Physical Exam GENERAL: This is a well-nourished, well-developed patient, in no apparent distress. SKIN: No rashes, ecchymoses or lesions. Cool and dry. HEAD: Atraumatic. Normocephalic. No temporal or scalp tenderness. EYES: Pupils equal round and reactive. Extraocular motions intact. No scleral icterus. No injection or drainage. ENT: Nose without bleeding, purulent drainage or septal hematoma. Throat without erythema, tonsillar hypertrophy or exudate. Uvula midline. Airway patent. NECK: Trachea midline. Supple, nontender, no meningeal signs. CARDIOVASCULAR: Heart sounds audible. RESPIRATORY: Clear to auscultation. Breath sounds equal bilaterally. No wheezes , rales, or rhonchi. GASTROINTESTINAL: Abdomen soft, non-tender, nondistended. MUSCULOSKELETAL: Bilateral nonpitting edema. Feet extremely sensitive to touch NEUROLOGICAL: Awake and alert. Normal speech. Psych cooperative IV line sites with no evidence of infection. Laboratory Laboratory Tests Test 01/15/18 09:25 01/15/18 09:45 Blood Urea Nitrogen 18 Creatinine 0.98 Random Glucose 78 Total Protein 6.7 Albumin 2.2 Calcium Level 8.4 Phosphorus Level 2.6 Magnesium Level 2.3 Alkaline Phosphatase 73 Aspartate Amino Transf (AST/SGOT) 16 Alanine Aminotransferase (ALT/SGPT) 14 Total Bilirubin 0.3 Sodium Level 144 Potassium Level 3.8 Chloride Level 114 Carbon Dioxide Level 20.7 Anion Gap 9 Estimat Glomerular Filtration Rate 55 White Blood Count 6.8 Red Blood Count 4.17 Hemoglobin 11.8 Hematocrit 36.9 Mean Corpuscular Volume 88.5 Mean Corpuscular Hemoglobin 28.4 Mean Corpuscular Hemoglobin Concent 32.1 Red Cell Distribution Width 16.2 Platelet Count 157 Mean Platelet Volume 9.8 Neutrophils (%) (Auto) 55.5 Lymphocytes (%) (Auto) 29.7 Monocytes (%) (Auto) 9.6 Eosinophils (%) (Auto) 4.0 Basophils (%) (Auto) 1.2 Neutrophils # (Auto) 3.8 Lymphocytes # (Auto) 2.0 Monocytes # (Auto) 0.7 Eosinophils # (Auto) 0.3 Basophils # (Auto) 0.1 CBC Comment DIFF FINAL Differential Comment Date/Time Source Procedure Growth Status 01/11/18 21:20 Blood Peripheral Aerobic Blood Culture - Preliminary NO GROWTH IN 4 DAYS Resulted 01/11/18 21:20 Blood Peripheral Anaerobic Blood Culture - Preliminary NO GROWTH IN 4 DAYS Resulted 01/11/18 23:15 Urine Clean Catch Urine Culture - Final Escherichia Coli Esbl Positive Multi-Drug Resistant Complete Result Diagram: 01/15/18 0945 01/15/18 0925 Imaging Last Impressions Abdomen/Pelvis CT 01/12/18 2309 Signed Impressions: CONCLUSION: 1. There is moderate hydronephrosis in the right kidney due to a distal ureter al stone almost 7 mm in size. Additional stones in the right kidney. 2. Staghorn calculus in the left kidney with numerous other stones within the calyces on the left side and multiple fragmented stones within the left renal p radha. 3. 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 Chest X-Ray 01/11/182036 Signed Impressions: CONCLUSION: Mild congestive failure with minimal parenchymal changes on the left. Inflammat ory process would be consideration. Assessment and Plan Assessment and Plan Sepsis present on admission (leucocytosis, fever) Right ureteral calculus with large right lower pole calculus with hydronephrosis. s/p cystoscopy right retrograde pyelogram, right ureteroscopy with stone extraction, right double-J stent insertion with Vega insertion on January 13, 2018. Acute metabolic encephalopathy improving Recs: Dc Zosyn IV DC Doxy oral. Start Ertapenem IV (ESBL complicated UTI with stones and hydronephrosis) If tolerates this regimen will consider Midline placement in am Will dw Case Management about DC planning back to [facility] in am. BCX negative Follow cultures follow clinically. If [facility] willing to accept patient with Ertapenem IV for [address] Midline consult if patient tolerated meds and call me for infusion orders. Geri Ch MD Jan 15, 2018 16:23
[2018-01-15] MEDS ORDERED: COLLAGENASE OINT 30 GM TUBE TOPICAL SCH (16:45)
[2018-01-15] MEDS: ERTAPENEM INJ 1,000 MG in SODIUM CHLORIDE 0.9% INJ 100 ML IV SCH (17:12)
[2018-01-15] MEDS: SODIUM CHLOR 0.9% 1000 ML INJ 1,000 ML IV SCH (17:12)
[2018-01-15 20:00] VITALS: BP 122/71; PULSE 57; PULSE 71; RESP 20; TEMP 98.4; O2SAT 98
[2018-01-15] MEDS ORDERED: LACTIC ACID (AMMONIUM LACTATE) 12% LOTION 225 GM BTL TOPICAL SCH (21:00)
[2018-01-15] MEDS: PRAVASTATIN SOD 40 MG TAB PO SCH (21:30)
[2018-01-16] VITALS: BP 138/74; PULSE 60; PULSE 61; RESP 20; TEMP 97.8; O2SAT 96
[2018-01-16 04:00] VITALS: BP 117/79; PULSE 57; PULSE 60; RESP 20; TEMP 98; O2SAT 97
[2018-01-16] MEDS: traMADol HCL 50 MG TAB PO PRN ×4 (04:51→23:28)
[2018-01-16] MEDS: LEVOTHYROXINE SODIUM 125 MCG TAB PO SCH (04:51)
[2018-01-16 08:00] VITALS: BP 149/78; PULSE 60; PULSE 66; RESP 18; TEMP 97.5; O2SAT 97
[2018-01-16] MEDS: SODIUM CHLORIDE 0.9% FLUSH 10 ML FLUSH IV FLUSH SCH ×2 (09:00→20:58)
[2018-01-16] MEDS: BACLOFEN 10 MG TAB PO SCH ×2 (09:20→20:58)
[2018-01-16] MEDS: DULoxetine HCl DR 60 MG CAP PO SCH (09:20)
[2018-01-16] MEDS: MULTIVITAMIN TAB PO SCH (09:20)
[2018-01-16] MEDS: FAMOTIDINE 20 MG TAB PO SCH ×2 (09:20→20:57)
[2018-01-16] MEDS: TOPIRAMATE 25 MG TAB PO SCH ×2 (09:20→20:58)
[2018-01-16] MEDS: CHOLECALCIFEROL (VIT D3) 1000 UNIT TAB PO SCH (09:20)
[2018-01-16] MEDS: PREGABALIN 75 MG CAP PO SCH ×2 (09:20→20:57)
[2018-01-16] MEDS: SODIUM CHLOR 0.9% 1000 ML INJ 1,000 ML IV SCH ×2 (09:21→20:58)
[2018-01-16] MEDS: DOCUSATE SODIUM 50 MG/SENNA 8.6 MG TAB PO SCH ×2 (09:21→20:57)
[2018-01-16 12:00] VITALS: BP 139/67; PULSE 57; PULSE 58; RESP 18; TEMP 97.3; O2SAT 99
--- NOTE | 2018-01-16 14:42 | HHI.PR ---
Subjective Remarks Nursing denies any deterioration since last night. Patient denies having any new complaints. Objective Vital Signs Date Time Temp Pulse Resp B/P (MAP) Pulse Ox O2 Delivery O2 Flow Rate FiO2 01/16/18 12:00 57 01/16/18 08:00 Room Air 2.00 01/16/18 08:00 66 01/16/18 08:00 97.5 60 18 149/78 (101) 97 01/16/18 04:05 Room Air 01/16/18 04:00 98.0 60 20 117/79 (92) 97 01/16/18 04:00 57 01/16/18 00:00 Room Air 01/16/18 00:00 97.8 61 20 138/74 (95) 96 01/16/18 00:00 60 01/15/18 20:00 98.4 57 20 122/71 (88) 98 01/15/18 20:00 Room Air 01/15/18 20:00 71 01/15/18 16:00 65 01/15/18 16:00 97.8 65 18 129/70 (89) 96 I/O 01/15/18 01/15/18 01/15/18 01/16/18 01/16/18 01/16/18 07:00 15:00 23:00 07:00 15:00 23:00 Intake Total 50 ml 1520 ml 320 ml Output Total 1375 ml 2000 ml Balance 50 ml 145 ml -1680 ml Intake Oral 720 ml 320 ml IV Total 50 ml 800 ml Output Urine Total 1375 ml 2000 ml # Bowel Movements 0 0 Result Diagram: 01/15/18 0945 01/15/18 0925 Objective Remarks Lying in bed, awake and alert, no acute distress Vega catheter in place Overall unchanged exam since yesterday A/P Assessment and Plan hydronephrosis -improving 2 day s/p right ureteral stent placement -Cystoscopy, right retrograde pyelogram, right ureteroscopy with stone extraction, right double-J stent insertion, with Vega insertion -Nursing received info to DC Vega catheter in a.m. UTI -ESBL e.coli growing in urine, will need a PICC line, started on Invanz per infectious disease, Pneumonia -Chest x-ray significant for parenchymal changes on the left, personally reviewed -Antibiotics as above Hypertension/CHF/GERD -Continue home medications Chronic pain -Continue tramadol and Lyrica Hypothyroidism -Continue home Synthroid-we will decrease dosage Discharge Planning discharge pending ID clearance for discharge and for [facility] to accept the responsibility of obtaining pt's IV abx Elvin Echavarria MD Jan 16, 2018 14:42
[2018-01-16 16:00] VITALS: BP 158/81; PULSE 58; PULSE 59; RESP 18; TEMP 97.7; O2SAT 99
[2018-01-16] MEDS: ERTAPENEM INJ 1,000 MG in SODIUM CHLORIDE 0.9% INJ 100 ML IV SCH (17:07)
[2018-01-16 20:00] VITALS: BP 161/93; PULSE 59; PULSE 63; RESP 18; TEMP 97.7; O2SAT 99
[2018-01-16] MEDS: PRAVASTATIN SOD 40 MG TAB PO SCH (20:57)
[2018-01-17] VITALS (8 sets, daily range): BP systolic 134–149; BP diastolic 62–78; PULSE 55–65; RESP 18–19; TEMP 97.6–98.1; O2SAT 93–99
[2018-01-17] MEDS: traMADol HCL 50 MG TAB PO PRN (05:17)
[2018-01-17] MEDS: LEVOTHYROXINE SODIUM 125 MCG TAB PO SCH (06:30)
[2018-01-17] MEDS: PREGABALIN 75 MG CAP PO SCH (08:18)
[2018-01-17] MEDS: TOPIRAMATE 25 MG TAB PO SCH (08:18)
[2018-01-17] MEDS: FAMOTIDINE 20 MG TAB PO SCH (08:19)
[2018-01-17] MEDS: DULoxetine HCl DR 60 MG CAP PO SCH (08:19)
[2018-01-17] MEDS: BACLOFEN 10 MG TAB PO SCH (08:19)
[2018-01-17] MEDS: CHOLECALCIFEROL (VIT D3) 1000 UNIT TAB PO SCH (08:19)
[2018-01-17] MEDS: MULTIVITAMIN TAB PO SCH (08:19)
[2018-01-17] MEDS: SODIUM CHLORIDE 0.9% FLUSH 10 ML FLUSH IV FLUSH SCH (08:20)
[2018-01-17] MEDS: DOCUSATE SODIUM 50 MG/SENNA 8.6 MG TAB PO SCH (08:20)
--- NOTE | 2018-01-17 09:02 | HHI.PR ---
Subjective Patient symptoms today Pt seen and examined. c/o foot pain. Urine clearing. Objective Vital Signs Vital Signs Date Time Temp Pulse Resp B/P (MAP) Pulse Ox O2 Delivery O2 Flow Rate FiO2 01/17/18 04:00 61 01/17/18 04:00 97.6 60 19 149/78 (101) 93 01/17/18 04:00 Room Air 01/17/18 00:00 98.1 65 18 148/71 (96) 99 01/16/18 20:00 97.7 63 18 161/93 (115) 99 01/16/18 20:00 59 01/16/18 20:00 Room Air 01/16/18 16:00 59 01/16/18 16:00 97.7 58 18 158/81 (106) 99 01/16/18 12:00 57 01/16/18 12:00 97.3 58 18 139/67 (91) 99 Intake & Output 01/17/18 01/17/18 07:00 19:00 Intake Total 720 ml Output Total 1600 ml Balance -880 ml IV Total 720 ml Output Urine Total 1600 ml Result Diagram: 01/15/18 0945 01/15/18 0925 Objective Remarks Abd:soft,nt,nd Quesada with clear urine 01/17 Abd:soft,nt,nd Quesada with clear urine Medications and IVs Current Medications Medications (Trade) Dose Ordered Sig/William Route Start Time Stop Time Status Last Admin Sodium Chloride 1,000 ml @ 70 mls/hr [id number] IV 01/12/18 03:49 01/16/18 20:58 (NS Flush) 2 ml UNSCH PRN IV FLUSH 01/12/18 04:00 (NS Flush) 2 ml BID IV FLUSH 01/12/18 09:00 01/17/18 08:20 (Tylenol) 650 mg Q4H PRN PO 01/12/18 04:00 (Zofran Inj) 4 mg Q6H PRN IVP 01/12/18 04:00 01/12/18 09:45 (Narcan Inj) 0.4 mg UNSCH PRN IV PUSH 01/12/18 04:00 (Megan-Colace) 1 tab BID PO 01/12/18 09:00 01/17/18 08:20 (Milk Of Magnesia Liq) 30 ml Q12H PRN PO 01/12/18 04:00 (Senokot) 17.2 mg Q12H PRN PO 01/12/18 04:00 (Dulcolax Supp) 10 mg DAILY PRN RECTAL 01/12/18 04:00 (Lactulose Liq) 30 ml DAILY PRN PO 01/12/18 04:00 (Cymbalta Dr) 60 mg DAILY PO 01/12/18 09:00 01/17/18 08:19 (Pravachol) 40 mg HS PO 01/12/18 21:00 01/16/18 20:57 (Ultram) 50 mg Q6H PRN PO 01/12/18 04:00 01/17/18 05:17 (Topamax) 50 mg BID PO 01/12/18 09:00 01/17/18 08:18 (Synthroid) 125 mcg DAILY@0700 PO 01/13/18 07:00 01/17/18 06:30 (Lioresal) 10 mg BID PO 01/12/18 21:00 01/17/18 08:19 (Pepcid) 20 mg BID PO 01/12/18 21:00 01/17/18 08:19 (Vitamin D3) 1,000 units DAILY PO 01/13/18 09:00 01/17/18 08:19 (Theragran) 1 tab DAILY PO 01/13/18 09:00 01/17/18 08:19 (Lyrica) 150 mg BID PO 01/13/18 21:00 01/17/18 08:18 Ertapenem 1000 mg/ Sodium Chloride 100 ml @ 200 mls/hr Q24H IV 01/15/18 17:00 01/16/18 17:07 Assessment and Plan Assessment and Plan Stable s/p right URS with stone extraction and stent insertion Continue quesada drainage for now Continue IV abx F/U with Dr. Munguia as outpt. Pt will need intervention for stones involving left kidney 01/17 Stable s/p right URS with stone extraction and stent insertion Void trial prior to discharge Continue IV abx as outpt. F/U with Dr. Munguia as outpt. Yo Schilling DO Jan 17, 2018 09:02
--- NOTE | 2018-01-17 10:04 | HHI.DCPOC ---
Discharge Care Plan Diagnosis: (1) ESBL (extended spectrum beta-lactamase) producing bacteria infection (2) Renal calculus, right Goals to Promote Your Health * To prevent worsening of your condition and complications * To maintain your health at the optimal level Directions to Meet Your Goals Take your medications as prescribed Follow your dietary instruction Follow activity as directed Keep your appointments as scheduled Take your immunizations and boosters as scheduled If your symptoms worsen call your PCP, if no PCP go to Urgent Care Center or Emergency Room Smoking is Dangerous to Your Health. Avoid second hand smoke Call the 24-hour hour crisis hotline for domestic abuse at Elvin Echavarria MD Jan 17, 2018 10:04
[2018-01-17] MEDS ORDERED: TRAM50TA PO (11:28)
[2018-01-17] MEDS ORDERED: AMBI5TAB PO (11:28)
[2018-01-17] MEDS ORDERED: LYRI150C PO (11:28)
[2018-01-17] MEDS ORDERED: HYDR-3583 PO (11:28)
[2018-01-17] MEDS ORDERED: ACETAMINOPHEN/HYDROcodone 325 MG/10 MG TAB PO PRN (11:30)
[2018-01-17] MEDS ORDERED: LIDOCAINE HCL 5% PATCH T-DERMAL SCH (11:30)
[2018-01-17] MEDS: SODIUM CHLOR 0.9% 1000 ML INJ 1,000 ML IV SCH (12:43)
--- NOTE | 2018-01-17 16:11 | HHI.IDPN ---
Subjective Subjective Remarks Ms. Mcfarlane is a 77-year-old female with past medical history significant for hypertension, coronary artery disease, chronic kidney disease and prior history of nephrolithiasis status post lithotripsy by Dr. Man. With this background patient presents to the emergency department for evaluation of altered mental status. Patient reports that she resides in a [facility] and she noticed increasing fatigue decreased level of consciousness and reportedly had difficulty feeding herself. She corroborated much of her history. Patient did not want to be bothered as she had discomfort in her legs. Upon questioning she reports this pain and discomfort in her legs is chronic. Patient met criteria for sepsis on admission underwent a workup including blood cultures and UA. UA is positive for ESBL E. coli. Patient has been started on Zosyn IV and appears to be clinically improving although it is not the drug of choice for this organism. Patient underwent a CT scan which showed right ureteral calculus with large right lower pole calculus with hydronephrosis. Patient was seen by Dr. Yo Schilling and underwent cystoscopy right retrograde pyelogram, right ureteroscopy with stone extraction, right double-J stent insertion with Vega insertion on January 13, 2018. Postoperatively patient seems to be doing well clinically. Now found to be more alert oriented 3 and providing good information about her medical background. Infectious diseases consulted for evaluation and management of complicated UTI with ESBL E. coli. Overnight events reviewed No fevers no rash No diarrhea Antibiotics Ertapenem IV Lines Lines ok Past Medical History Past Medical History Nephrolithiasis status post lithotripsy by Dr. Man Other urological procedure per HPI Hypertension Diastolic congestive heart failure Chronic kidney disease Coronary artery disease GERD Past Surgical History Cardiac catheterization with stent placement Bilateral cataracts 4 hip surgeries 4 back surgeries 2 knee surgeries Allergies: Coded Allergies: Sulfa (Sulfonamide Antibiotics) (Verified Allergy, Severe, 12/22/17) codeine (Verified Allergy, Severe, 12/22/17) morphine (Verified Allergy, Severe, 12/22/17) amoxicillin (Verified Allergy, Unknown, UNKNOWN, 12/22/17) Objective . Vital Signs Date Time Temp Pulse Resp B/P (MAP) Pulse Ox O2 Delivery O2 Flow Rate FiO2 01/17/18 12:09 97.7 58 18 136/62 (86) 99 01/17/18 11:51 62 01/17/18 08:09 97.9 55 18 139/64 (89) 99 01/17/18 08:00 Room Air 01/17/18 07:47 55 01/17/18 04:00 61 01/17/18 04:00 97.6 60 19 149/78 (101) 93 01/17/18 04:00 Room Air 01/17/18 00:00 98.1 65 18 148/71 (96) 99 01/16/18 20:00 97.7 63 18 161/93 (115) 99 01/16/18 20:00 59 01/16/18 20:00 Room Air Imaging Last Impressions Abdomen/Pelvis CT 01/12/182308 Signed Impressions: CONCLUSION: 1. There is moderate hydronephrosis in the right kidney due to a distal ureter al stone almost 7 mm in size. Additional stones in the right kidney. 2. Staghorn calculus in the left kidney with numerous other stones within the calyces on the left side and multiple fragmented stones within the left renal p radha. 3. 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 Chest X-Ray 01/11/182036 Signed Impressions: CONCLUSION: Mild congestive failure with minimal parenchymal changes on the left. Inflammat ory process would be consideration. Physical Exam GENERAL: This is a well-nourished, well-developed patient, in no apparent distress. SKIN: No rashes, ecchymoses or lesions. Cool and dry. HEAD: Atraumatic. Normocephalic. No temporal or scalp tenderness. EYES: Pupils equal round and reactive. Extraocular motions intact. No scleral icterus. No injection or drainage. ENT: Nose without bleeding, purulent drainage or septal hematoma. Throat without erythema, tonsillar hypertrophy or exudate. Uvula midline. Airway patent. NECK: Trachea midline. Supple, nontender, no meningeal signs. CARDIOVASCULAR: Heart sounds audible. RESPIRATORY: Clear to auscultation. Breath sounds equal bilaterally. No wheezes , rales, or rhonchi. GASTROINTESTINAL: Abdomen soft, non-tender, nondistended. MUSCULOSKELETAL: Bilateral nonpitting edema. Feet extremely sensitive to touch NEUROLOGICAL: Awake and alert. Normal speech. Psych cooperative IV line sites with no evidence of infection. Assessment & Plan Remarks Sepsis present on admission (leucocytosis, fever) Right ureteral calculus with large right lower pole calculus with hydronephrosis. s/p cystoscopy right retrograde pyelogram, right ureteroscopy with stone extraction, right double-J stent insertion with Vega insertion on January 13, 2018. Acute metabolic encephalopathy improving Recs: Continue Ertapenem IV (ESBL complicated UTI with stones and hydronephrosis) Post hospital infusion orders in chart. Mike Mckeon RN Will sign off please call back if any change in clinical condition or questions. Geri Ch MD Jan 17, 2018 16:11
[2018-01-17] MEDS ORDERED: INVA1INJ IV (16:13)
[2018-01-17] MEDS ORDERED: EPIN1INJ21 SQ (16:13)
[2018-01-17] MEDS ORDERED: SOLU250I IV PUSH (16:13)
[2018-01-17] MEDS ORDERED: EPIN1INJ21 IV PUSH (16:13)
--- NOTE | 2018-01-17 16:15 | HHI.FF ---
Infusion Therapy Location of Infusion Therapy: [facility] Infusion Therapy Order Patient Information Appointment Date: Jan 17, 2018 Patient Weight 114.8 kg Diagnosis: Diagnosis ESBL E.coli complicated UTI with stones and hydronephrosis Coded Allergies: Sulfa (Sulfonamide Antibiotics) (Verified Allergy, Severe, 12/22/17) codeine (Verified Allergy, Severe, 12/22/17) morphine (Verified Allergy, Severe, 12/22/17) amoxicillin (Verified Allergy, Unknown, UNKNOWN, 12/22/17) Administer Medication Ertapenem 1 gram IV q 24 hours Start Treatment: Jan 17, 2018 Stop Treatment: Jan 28, 2018 Additional Information Venous access: Other (Midline) Additional Instructions [x] Peripheral flush and dressing changes per protocol [x] Implanted port and central line tender: * Implanted port: 10 ml Normal Saline followed by 5 ml Heparin 100 units/ml Heparin flush after each use and monthly to maintain. [] May leave port accessed during therapy. [] May leave peripheral site accessed for duration of therapy. [x] If patient has SOB or respiratory distress, check oxygen saturation. If less than 90% or clinical signs of respiratory distress, administer oxygen at 2 L/min. via nasal cannula and notify physician. [x] Anaphylaxis/Reaction orders: * Stop infusion. * Keep IV line open with saline flush. * Notify physician. * Monitor vital signs every 15 minutes until symptoms resolve. * Check Oxygen saturation; Oxygen at 2 L/min. via nasal cannula if less than 90% or clinical signs of respiratory distress. * Administer diphenhydramine (Benadryl) 25 mg IV STAT, (unless patient has received as pre-med). May repeat once, if necessary. * Solu-Cortef 250 mg IVP over 30-60 seconds, use 100 mg vials for each dissolution. * Epinephrine (1mg/1 ml) 0.3 mg subcutaneously or IVP now with any signs of respiratory distress. * Check with physician for new additional pre-med orders if patient is re- challenged or re-treated. [x] May remove PICC line when treatment complete, after confirming with Physician. [x] If the patient is admitted to the hospital, the ED, or transferred via [facility] , complete transfer form including medication reconciliation order sheet. Laboratory Tests Weekly Labs: CBC w/diff, Creatinine, CRP, LFT's (Hepatic function test) Additional Information Please draw weekly labs, Call with abnormals, change in clinical condition or problems to: skilled nursing MD or [employer] WET/PA. Follow up appt: Follow up with PCP and Urology Follow up with other MDs as planned. Counseling: Counseled about medication side effects Counseled about PICC line care and hand hygiene. Geri Ch MD Jan 17, 2018 16:15
[2018-01-17] MEDS: ERTAPENEM INJ 1,000 MG in SODIUM CHLORIDE 0.9% INJ 100 ML IV SCH (17:13)
--- NOTE | 2018-01-17 18:40 | HHI.DS ---
Discharge Summary Admission Date January 12, 2018 at 03:08 Discharge Date: Jan 17, 2018 Admitting Diagnosis Pneumonia, Kidney stones, UTI, AMS (1) Ureteral calculus, right ICD Code: N20.1 - Calculus of ureter (2) Renal calculus or stone ICD Code: N20.0 - Calculus of kidney Status: Acute (3) STONE (acute kidney injury) ICD Code: N17.9 - Acute kidney failure, unspecified Status: Resolved (4) ESBL (extended spectrum beta-lactamase) producing bacteria infection ICD Code: A49.9 - Bacterial infection, unspecified; Z16.12 - Extended spectrum beta lactamase (ESBL) resistance Procedures Date of Surgery: January 13, 2018 Preoperative Diagnosis: Right ureteral calculus with large right lower pole calculus with hydronephrosis Postoperative Diagnosis: Same Procedure: Cystoscopy, right retrograde pyelogram, right ureteroscopy with stone extraction , right double-J stent insertion, with Vega insertion Anesthesia: General LMA Surgeon: Yo Schilling Brief History - From Admission 77-year-old female with a past medical history significant for nephrolithiasis currently undergoing lithotripsy with Dr. Munguia, hypertension, diastolic CHF, chronic kidney disease, CAD and GERD presents to the emergency department for evaluation of altered mental status. The patient resides in a shelter where they noted that she was having increasing fatigue, decreased level of consciousness and difficulty feeding herself. During her interview the patient is alert and oriented 3 and able to give me her own history. She reports abdominal and back pain. No nausea/vomiting/diarrhea. No chest pain. Patient does endorse shortness of breath that at times is so bad she cannot speak in complete sentences. No cough or congestion. No lateralizing signs/symptoms. CBC/BMP: 01/15/18 0945 01/15/18 0925 Significant Findings Laboratory Tests Test 01/15/18 09:25 01/15/18 09:45 Albumin 2.2 GM/DL (3.4-5.0) Calcium Level 8.4 MG/DL (8.5-10.1) Chloride Level 114 MEQ/L (98-107) Carbon Dioxide Level 20.7 MEQ/L (21.0-32.0) Estimat Glomerular Filtration Rate 55 ML/MIN (>89) Monocytes (%) (Auto) 9.6 % (0.0-8.0) Imaging Last Impressions Abdomen/Pelvis CT 01/12/182308 Signed Impressions: CONCLUSION: 1. There is moderate hydronephrosis in the right kidney due to a distal ureter al stone almost 7 mm in size. Additional stones in the right kidney. 2. Staghorn calculus in the left kidney with numerous other stones within the calyces on the left side and multiple fragmented stones within the left renal p radha. 3. 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 Chest X-Ray 01/11/182036 Signed Impressions: CONCLUSION: Mild congestive failure with minimal parenchymal changes on the left. Inflammat ory process would be consideration. PE at Discharge sleeping in bed comfortably, catheter in place at this time which was later removed by RN unlabored breathing Hospital Course Pt was admitted. Started on abx for PNA and UTI. Urology was consulted, perform right side ureteral stent placement. ID was consulted for ESBL, started pt on invanz. Vega was removed per urology. Pt has met maximal beneift from hospitalization and is clinically stable for discharge. Pt Condition on Discharge: Stable Discharge Disposition: Discharge to SNF Discharge Time: <= 30 minutes Discharge Instructions DIET: Follow Instructions for: Heart Healthy Diet Activities you can perform: Weight Bearing as Vanessa, See Additionl Instruction Other Activity Instructions: per PT recs Follow up Referrals: PCP Follow-up - 1 Week Urology - 1 Week with Tam Munguia MD New Medications: Epinephrine Inj (Epinephrine Inj) 1 Mg/Ml (1 Ml) Inj 0.3 MG IV PUSH ONCE PRN for ALLERGIC REACTION, #1 VIAL Epinephrine Inj (Epinephrine Inj) 1 Mg/Ml (1 Ml) Inj 0.3 MG SQ ONCE PRN for ALLERGIC REACTION, #1 VIAL Give with any signs of respiratory distress. Ertapenem Inj (Invanz Inj) 1 Gm Addvial 1 GM IV Q24H for Infection for 10 Days, INJECTION 0 Refills ADMINISTER IN 100ML NS Hydrocortisone Inj (Solu-Cortef Inj) 250 Mg/2 Ml Inj 250 MG IV PUSH ONCE PRN for ALLERGIC REACTION, #1 VIAL 0 Refills Give over 30-60 seconds. Changed Medications: Hydrocodone-Acetaminophen (Hydrocodone-Acetaminophen) 10-325 mg Tab 1 TAB PO Q8HR PRN for breakthru pain, #20 TAB 0 Refills (Medication details modified) Continued Medications: Baclofen (Baclofen) 10 Mg Tab 10 MG PO BID for Muscle Spasm, TAB 0 Refills Cholecalciferol (Vitamin D3) 1,000 Unit Tab 1000 UNITS PO DAILY for Nutritional Supplement, #1 BOTTLE 0 Refills Docusate Sodium (Docusate Sodium) 100 Mg Cap 100 MG PO BID for Prevent Constipation, #60 CAP [address] (Cymbalta DR) 60 Mg Capdr 60 MG PO DAILY, #30 CAP 0 Refills Famotidine (Famotidine) 20 Mg Tab 20 MG PO BID, #60 TAB 0 Refills Levothyroxine (Levothyroxine) 150 Mcg Tab 150 MCG PO DAILY for Thyroid, #30 TAB 0 Refills Multiple Vitamin (Multi-Vitamin Daily) 1 Tab Tab 1 TAB PO DAILY for Nutritional Supplement, TAB 0 Refills Polyethylene Glycol 3350 Powder (Polyethylene Glycol 3350 Powder) 17 Gm Pow 17 GM PO DAILY for Constipation, #1 BOTTLE 0 Refills Pravastatin (Pravastatin) 40 Mg Tab 40 MG PO HS for Cholesterol Management, #30 TAB 0 Refills Pregabalin (Lyrica) 150 Mg Cap 1 TAB PO 6am,10pm for Pain Management, #60 CAP 0 Refills (This prescription has been renewed) Sennosides (Senna-Tabs) 8.6 Mg Tab 17.2 MG PO BID for Constipation, #30 TAB 0 Refills Topiramate ER (Topiramate ER) 50 Mg Cap 50 MG PO BID for Seizure Control, #30 CAP 0 Refills Tramadol (Tramadol) 50 Mg Tab 50 MG PO Q6H PRN for PAIN, #20 TAB 0 Refills (This prescription has been renewed ) Zolpidem (Ambien) 5 Mg Tab 5 MG PO HS PRN for INSOMNIA, #10 TAB (This prescription has been renewed) [Protein Supplement] () Discontinued Medications: Acetaminophen (Tylenol) 325 Mg Tab 325 MG PO Q4H PRN for PAIN SCALE 1 TO 10, TAB 0 Refills Elvin Echavarria MD Jan 17, 2018 18:40
[2018-01-17] MEDS ORDERED: REMOVE OLD LIDOCAINE PATCH T-DERMAL SCH (21:00)
[2018-01-17] MEDS ORDERED: ZOLPIDEM TARTRATE 5 MG TAB PO PRN (21:00)
== END 2018-01-17 19:29 | DRG 853 ==
LOC: NEPE 20:24 → NEDA 01-12 03:08 → HCIS 01-12 05:27 → N04B 01-14 12:57
PROVIDERS: ADMIT Hospitalist; ATTEND Hospitalist
PROC: BT1D1ZZ Fluoroscopy of Right Kidney, Ureter and Bladder using Low Osmolar Contrast (ICD-10-PCS; 2018-01-13)
PROC: 0T768DZ Dilation of Right Ureter with Intraluminal Device, Via Natural or Artificial Opening Endoscopic (ICD-10-PCS; 2018-01-13)
PROC: 0TC68ZZ Extirpation of Matter from Right Ureter, Via Natural or Artificial Opening Endoscopic (ICD-10-PCS; principal; 2018-01-13 12:37)
DX: A41.9 Sepsis, unspecified organism (principal); J18.9 Pneumonia, unspecified organism; G93.41 Metabolic encephalopathy; I13.0 Hypertensive heart and chronic kidney disease with heart failure and stage 1 through stage 4 chronic kidney disease, or unspecified chronic kidney disease; F03.90 Unspecified dementia, unspecified severity, without behavioral disturbance, psychotic disturbance, mood disturbance, and anxiety; I50.32 Chronic diastolic (congestive) heart failure; N13.2 Hydronephrosis with renal and ureteral calculous obstruction; Z68.41 Body mass index [BMI] 40.0-44.9, adult; N39.0 Urinary tract infection, site not specified; B96.20 Unspecified Escherichia coli [E. coli] as the cause of diseases classified elsewhere; Z16.12 Extended spectrum beta lactamase (ESBL) resistance; I25.10 Atherosclerotic heart disease of native coronary artery without angina pectoris; E66.9 Obesity, unspecified; E03.9 Hypothyroidism, unspecified; E78.00 Pure hypercholesterolemia, unspecified; N18.9 Chronic kidney disease, unspecified; K21.9 Gastro-esophageal reflux disease without esophagitis; E87.6 Hypokalemia; L89.90 Pressure ulcer of unspecified site, unspecified stage; F32.9 Major depressive disorder, single episode, unspecified; R19.00 Intra-abdominal and pelvic swelling, mass and lump, unspecified site; Z66 Do not resuscitate; Z80.1 Family history of malignant neoplasm of trachea, bronchus and lung; Z82.49 Family history of ischemic heart disease and other diseases of the circulatory system; Z88.1 Allergy status to other antibiotic agents; Z88.2 Allergy status to sulfonamides; Z88.5 Allergy status to narcotic agent; Z95.5 Presence of coronary angioplasty implant and graft; Z96.643 Presence of artificial hip joint, bilateral; Z96.653 Presence of artificial knee joint, bilateral
CPT/HCPCS: 36569; 71045; 74177; 74420; 76937; 80053; 81001; 82140; 82365; 82370; 82550; 83036; 83605; 83690; 83735; 83880; 84100; 84439; 84443; 84484; 85025; 85610; 85730; 87040; 87077; 87086; 87186; 87640; 87641; 88300; 93005; 96365; C1769; J1100; J1335; J1956; J2405; J2543; J2710; J3010; J7030; J7050; P9612; Q9967